=== PATIENT | male | born 1940 | race Caucasian/White ===

== ENCOUNTER 2017-01-27 15:51 | Emergency (ER) | payer MEDICARE, OTHER ==
--- NOTE | 2017-01-27 17:51 | ERPHSYRPT ---
- History of Present Illness Time Seen by Provider: 01/27/17 17:51 Source: patient Exam Limitations: no limitations Patient Subjective Stated Complaint: pt states he tripped over the trailer hitch. pt states he hit left forehead on concrete. pt states he has a laceration to forehead and takes xarelto for a-fib. Triage Nursing Assessment: pt pink, warm, dry. pupils perrl. 3cm laceration to left forehead noted. bleeding controlled. Physician History: The patient is a 76-year-old male who tripped over a trailer hitch, falling to the ground, and hitting his head on the concrete, causing a laceration to the left side of his scalp as well as an abrasion to the right side. There was no loss of consciousness. Occurred: just prior to arrival Reason for Fall: tripped, fell from standing pos Injuries/Pain Location: head Loss of Consciousness: no loss of consciousness Quality: aching Severity of Pain-Max: mild Severity of Pain-Current: mild Modifying Factors: Improves With: nothing Associated Symptoms (Fall): denies symptoms Allergies/Adverse Reactions: Sulfa (Sulfonamide Antibiotics) Allergy (Verified 01/27/17 16:15) Home Medications: Allopurinol 300 mg [Zyloprim 300 mg] 300 mg PO DAILY 05/06/15 [History] Aspirin 81 mg PO DAILY 05/06/15 [History] Atenolol 50 mg [Tenormin 50 mg] 50 mg PO DAILY 05/06/15 [History] Duloxetine HCl 30 mg [Cymbalta 30 MG Capsule] 30 mg PO DAILY 05/06/15 [ History] Furosemide 40 mg PO DAILY 05/06/15 [History] Gabapentin 300 mg PO DAILY 05/06/15 [History] Glimepiride 6 mg PO DAILY 05/06/15 [History] Multivitamins,Ther W-Minerals [Vitamin and Minerals] 1 tab PO DAILY 05/06/15 [ History] Pioglitazone HCl/Glimepiride [Duetact 30-2 mg Tablet] 30 mg PO DAILY 05/06/15 [ History] Rivaroxaban 10 mg Tablet [Xarelto 10 mg Tablet] 10 mg PO DAILY 05/06/15 [ History] Dronedarone Hydrochloride 400* [Multaq 400 MG] 400 mg PO DAILY 01/27/17 [ History] Hx Tetanus, Diphtheria Vaccination/Date Given: Yes (up to date) Hx Influenza Vaccination/Date Given: Yes Hx Pneumococcal Vaccination/Date Given: Yes Immunizations Up to Date: Yes - Review of Systems Constitutional: No Fever, No Chills Eyes: No Symptoms Ears, Nose, & Throat: No Symptoms Respiratory: No Cough, No Dyspnea Cardiac: No Chest Pain, No Edema, No Syncope Abdominal/Gastrointestinal: No Abdominal Pain, No Nausea, No Vomiting, No Diarrhea Genitourinary Symptoms: No Dysuria Musculoskeletal: Fall, Injury, No Back Pain, No Neck Pain Skin: Other (lac and abrasion), No Rash Neurological: No Dizziness, No Focal Weakness, No Sensory Changes Psychological: No Symptoms Endocrine: No Symptoms Hematologic/Lymphatic: No Symptoms Immunological/Allergic: No Symptoms All Other Systems: Reviewed and Negative - Past Medical History Pertinent Past Medical History: Yes Neurological History: Stroke Cardiac History: Arrhythmia, Hypertension Endocrine Medical History: Diabetes Type I Other Medical History: BACK SURGERY X 2 AND ROGER IN 2013, 2012 HIP STABILIZATION , CATARACT 2000 AND 2009, - Past Surgical History Past Surgical History: Yes Musculoskeletal: Joint Replacement, Other Other Surgical History: BACK SX - Social History Smoking Status: Former smoker Exposure to second hand smoke: No Drug Use: none Patient Lives Alone: No - Nursing Vital Signs Nursing Vital Signs: Initial Vital Signs Temperature 97.4 F Temperature Source Oral Pulse Rate 76 Respiratory Rate 18 Blood Pressure [] 142/76 Pain Intensity 0 - [place] Coma Score Best Eye Response ([place]): (4) open spontaneously Best Verbal Response ([place]): (5) oriented Best Motor Response (Giuliana): (6) obeys commands Giuliana Total: 15 - Physical Exam General Appearance: no apparent distress, alert Head Injury: lacerations (right parietal, abrasion to left forehead.), swelling , tenderness Eye Exam: PERRL/EOMI ENT Exam: airway nml Neck Exam: normal inspection, No tenderness Respiratory/Chest Exam: normal breath sounds, No chest tenderness, No respiratory distress Cardiovascular Exam: normal heart sounds, regular rate/rhythm Gastrointestinal Exam: soft, No tenderness, No distention, No guarding, No ecchymosis Rectal Exam: not done Back Exam: normal inspection, No vertebral tenderness Extremity Exam: normal inspection, normal range of motion, pelvis stable, No deformities Neurologic Exam: alert, oriented x 3, cooperative, sensation nml, No motor deficits Skin Exam: abrasion (right forehead), laceration (left scalp) SpO2 Interpretation: normal Oxygen Delivery: Room Air Procedures - Laceration/Wound Repair Left Parietal Wound Location: Left, head Wound's Depth, Shape: superficial, flap Wound Explored: clean Irrigated: Yes Hibiclens Prep: Yes Wound Repaired With: Dermabond Sterile Dressing Applied?: No Splint Applied?: No Sling Applied?: No - CT Exams Head CT Interpretation: Tele-radiologist Report, No Fracture, No/Intracranial Hemorrhag, Other (No acute per Dr Ryan.) Ordered Tests: Active Orders 24 hr Category Date Time Status Wound Care STAT Care 01/27/17 17:41 Active HEAD WITHOUT CONTRAST [CT] Stat Exams 01/27/17 17:23 Taken - Progress Progress: improved Counseled pt/family regarding: diagnosis, rad results - Departure Time of Disposition: 18:04 Departure Disposition: Home Clinical Impression: Scalp contusion, Scalp laceration Condition: Stable Critical Care Time: No Referrals: CONCEPCIÓN DELEON MD [Primary Care Provider] - Instructions: Care for a Laceration After Repair Additional Instructions: Tylenol as needed.
[2017-01-27 18:26] VITALS: BP 143/59; PULSE 78
--- NOTE | 2017-01-28 08:37 | XRAY ---
Indication: Head injury following fall. Multiple contiguous axial images obtained through the head without contrast. Comparison: None Age-appropriate global atrophy and minimal periventricular degenerative micro-ischemia. No acute intracranial hemorrhage, abnormal extra-axial fluid collection, or mass effect. Fourth ventricle is midline without hydrocephalus. Bony calvarium intact. Visualized paranasal sinuses and mastoid air cells are pneumatized and clear. Impression: Nonacute senile brain. CTDI 50.87
== END 2017-01-27 18:25 | disposition home or self-care (01) ==
LOC: ED 15:51
PROC: 0HQ0XZZ Repair Scalp Skin, External Approach (ICD-10-PCS; principal; 2017-01-27)
DX: S01.01XA Laceration without foreign body of scalp, initial encounter (principal); S00.03XA Contusion of scalp, initial encounter; W18.09XA Striking against other object with subsequent fall, initial encounter; Z79.01 Long term (current) use of anticoagulants; I10 Essential (primary) hypertension; E10.9 Type 1 diabetes mellitus without complications
CPT/HCPCS: 12002; 70450; 99284

== ENCOUNTER 2018-02-16 14:03 | Emergency (ER) | payer BLACK LUNG, MEDICARE, OTHER ==
[2018-02-16] MEDS ORDERED: Hydromorphone 1 mg/ml Ampule IV ONE (14:24)
[2018-02-16] MEDS ORDERED: DILAUDID 2 MG INJECTION ONE (14:29)
--- NOTE | 2018-02-16 14:30 | ERPHSYRPT ---
- History of Present Illness Time Seen by Provider: 02/16/18 14:17 Source: patient, family () Patient Subjective Stated Complaint: pt reports abd pain radiating to low back and groin beginning wednesday-states that he is currently taking iron infusions- reports last bm yesterday with no difficutly Triage Nursing Assessment: pt pale warm and [id number] soft and tender to palp-denies rebound tenderness Physician History: CC: right flank pain Hx: 77 y/o patient of Dr Deleon/Josué. He has right flank pain radiating around to right abd and right groin. He had prior pain like this from his back. No hx of kidney stones. No fever or chills. Some nausea this AM. No blood in urine. He has hospitalization for fluid overload and dehydration last month. He finished an iron infusion and came to ER. Timing/Duration: day(s) (3) Allergies/Adverse Reactions: Sulfa (Sulfonamide Antibiotics) Allergy (Verified 02/16/18 14:16) Home Medications: Allopurinol 300 mg [Zyloprim 300 mg] 300 mg PO DAILY 05/06/15 [History] Aspirin 81 mg PO DAILY 05/06/15 [History] Duloxetine HCl 30 mg [Cymbalta 30 MG Capsule] 30 mg PO DAILY 05/06/15 [ History] Gabapentin 300 mg PO DAILY 05/06/15 [History] Glimepiride 6 mg PO DAILY 05/06/15 [History] Multivitamin,Ther and Minerals [Vitamin and Minerals] 1 tab PO DAILY 05/06/15 [ History] Dronedarone Hydrochloride 400* [Multaq 400 MG] 200 mg PO DAILY 01/27/17 [ History] Apixaban [Eliquis 2.5 mg Tablet] 2.5 mg PO DAILY 02/10/18 [History] Ascorbic Acid [Vitamin C] 1,000 mg PO DAILY 02/10/18 [History] Benzonatate [Tessalon Perle] 100 mg PO DAILY PRN PRN 02/10/18 [History] Bumetanide 1 mg [Bumex 1 mg] 1 mg PO DAILY 02/10/18 [History] Ergocalciferol (Vitamin D2) [Vitamin D] 50,000 unit PO WEEKLY 02/10/18 [History] Gabapentin 600 mg PO HS 02/10/18 [History] Ipratropium/Albuterol Sulfate [Combivent Inhaler] 15 gm IH Q4HPRN PRN 02/10/18 [ History] Losartan Potassium 25 mg PO DAILY 02/10/18 [History] Montelukast Sodium 10 mg [Singulair 10 MG] 10 mg PO DAILY 02/10/18 [History] Pioglitazone 30 mg [Actos 30 MG] 30 mg PO DAILY 02/10/18 [History] Tamsulosin HCl 0.4 mg [Flomax 0.4 MG] 0.4 mg PO DAILY 02/10/18 [History] Atenolol 25 mg PO DAILY 02/16/18 [History] Patiromer Calcium Sorbitex [Veltassa] 8.4 gm PO WEEKLY 02/16/18 [History] Hx Tetanus, Diphtheria Vaccination/Date Given: Yes Hx Influenza Vaccination/Date Given: Yes Hx Pneumococcal Vaccination/Date Given: Yes Immunizations Up to Date: Yes - Review of Systems Constitutional: No Fever, No Chills Eyes: No Symptoms Ears, Nose, & Throat: No Symptoms Respiratory: No Cough, No Dyspnea Cardiac: No Chest Pain Abdominal/Gastrointestinal: Abdominal Pain, Nausea, No Vomiting, No Diarrhea Genitourinary Symptoms: Flank Pain (right), No Dysuria, No Hematuria Musculoskeletal: Back Pain Skin: No Rash Neurological: No Headache All Other Systems: Reviewed and Negative - Past Medical History Pertinent Past Medical History: Yes Neurological History: Stroke ENT History: Cataracts Cardiac History: Arrhythmia, Congestive Heart Failure, Hypertension Respiratory History: CHF, Pneumonia, Other Endocrine Medical History: Diabetes Type I Musculoskeletal History: Degenerative Disk Disease GI Medical History: No Pertinent History History: Renal Disease Psycho-Social History: No Pertinent History Male Reproductive Disorders: No Pertinent History Other Medical History: BACK SURGERY X , 2012 HIP STABILIZATION, CATARACT 2000 AND 2009,black lung,lt total hip replaced - Past Surgical History Past Surgical History: Yes Neuro Surgical History: No Pertinent History Cardiac: Cardiac Catheterization Respiratory: No Pertinent History Gastrointestinal: No Pertinent History Genitourinary: No Pertinent History Musculoskeletal: Joint Replacement, Orthopedic Surgery, Other Male Surgical History: No Pertinent History Other Surgical History: BACK, rt shoulder,rt foot great toe, - Social History Smoking Status: Former smoker Exposure to second hand smoke: No Drug Use: none Patient Lives Alone: No - Nursing Vital Signs Nursing Vital Signs: Initial Vital Signs Temperature 97.3 F 02/16/18 14:12 Pulse Rate 75 02/16/18 14:12 Respiratory Rate 18 02/16/18 14:12 Blood Pressure 119/66 02/16/18 14:12 O2 Sat by Pulse Oximetry 98 02/16/18 14:12 Pain Scale Pain Intensity 10 - Physical Exam General Appearance: alert, other (pleasant man on home oxygen) Eye Exam: PERRL/EOMI Ears, Nose, Throat Exam: moist mucous membranes Neck Exam: normal inspection, non-tender, supple Respiratory Exam: crackles/rales (scattered bases) Cardiovascular Exam: regular rate/rhythm Gastrointestinal/Abdomen Exam: soft, No tenderness, No distention, No mass, No guarding Male Genitalia Exam: normal genitalia, No testicular tenderness Back Exam: normal inspection, No CVA tenderness Extremity Exam: normal inspection, normal range of motion Neurologic Exam: alert, oriented x 3, cooperative, sensation nml, No motor deficits Skin Exam: warm, dry, No rash SpO2 Interpretation: normal SpO2: 98 Oxygen Delivery: Room Air - Course Nursing assessment & vital signs reviewed: Yes Ordered Tests: Active Orders 24 hr Category Date Time Status Clean Catch Urine Specimen STAT Care 02/16/18 14:24 Active IV Insertion STAT Care 02/16/18 14:24 Active ABDOMEN AND PELVIS W/0 CONTRAS [CT] Stat Exams 02/16/18 14:24 Completed CBC W DIFF Stat Lab 02/16/18 14:37 Completed CMP Stat Lab 02/16/18 14:37 Completed CULTURE,URINE Stat Lab 02/16/18 15:05 Received Manual Differential NC Stat Lab 02/16/18 14:37 Completed UA W/ MICROSCOPIC Stat Lab 02/16/18 15:05 Completed Medication Summary Discontinued Medications Generic Name Dose Route Start Last Admin Trade Name Freq PRN Reason Stop Dose Admin Hydromorphone HCl 0.5 mg 02/16/18 14:24 02/16/18 14:36 Hydromorphone 1 Mg/Ml Ampule IV 02/16/18 14:25 0.5 mg STAT ONE Administration Hydromorphone HCl Confirm 02/16/18 14:29 Dilaudid 2 Mg Injection Administered 02/16/18 14:30 Dose 2 mg .ROUTE .STK-MED ONE Lab/Rad Data: Laboratory Result Diagrams 02/16/18 14:37 02/16/18 14:37 Laboratory Results 02/16/18 02/16/18 02/16/18 Range/Units 15:05 14:37 14:37 WBC 4.1 (4.0-10.5) K/mm3 RBC 2.46 L (4.1-5.6) M/mm3 Hgb 8.0 L (12.5-18.0) gm/dl Hct 26.3 L (42-50) % MCV 106.9 H (78-100) fl MCH 32.5 H (26-32) pg MCHC 30.4 L (32-36) g/dl RDW 17.8 H (11.5-14.0) % Plt Count 95 L (150-450) K/mm3 MPV 9.5 (6-9.5) fl Absolute Granulocytes 2.52 (1.4-6.9) Segmented Neutrophils 70 H (36.-66.) % Lymphocytes (Manual) 22 L (24-44) % Monocytes (Manual) 8 (0.0-12.0) % Differential Comment ABNORMAL Platelet Estimate DECREASED (NORMAL) Polychromasia 1+ Anisocytosis 1+ Macrocytosis 1+ Sodium 137 (137-145) mmol/L Potassium 4.8 (3.5-5.1) mmol/L Chloride 97 L (98-107) mmol/L Carbon Dioxide 34 H (22-30) mmol/L Anion Gap 10.1 (5-15) MEQ/L BUN 34 H (9-20) mg/dL Creatinine 2.46 H (0.66-1.25) mg/dL Estimated GFR 27.3 ML/MIN Glucose 195 H (74-106) mg/dL Calcium 8.3 L (8.4-10.2) mg/dL Total Bilirubin 0.40 (0.2-1.3) mg/dL AST 21 (17-59) U/L ALT 16 (0-50) U/L Alkaline Phosphatase 112 (38-126) U/L Serum Total Protein 6.0 L (6.3-8.2) g/dL Albumin 3.0 L (3.5-5.0) g/dL Ur Collection Type VOID Urine Color YELLOW (YELLOW) Urine Appearance CLEAR (CLEAR) Urine pH 5.0 (5-6) Ur Specific [place] 1.015 (1.005-1.025) Urine Protein TRACE (Negative) Urine Ketones NEGATIVE (NEGATIVE) Urine Blood 5-10 (0-5) Ki/ul Urine Nitrite NEGATIVE (NEGATIVE) Urine Bilirubin NEGATIVE (NEGATIVE) Urine Urobilinogen NORMAL (0-1) mg/dL Ur Leukocyte Esterase NEGATIVE (NEGATIVE) Urine Microscopic RBC 0-2 (0-2) /HPF Ur Epithelial Cells FEW (FEW) /HPF Urine Bacteria RARE (NEGATIVE) /HPF Hyaline Casts 5-10 (0-2) /LPF Urine Culture Reflexed YES (NO) Urine Glucose NEGATIVE (NEGATIVE) mg/dL Specimen Received 02/16/18 1505 - Progress Progress Note: 02/16/18 15:55 CT abd/pelvis: 1. Again negative renal calculus or evidence for obstructive uropathy. New bilateral renal atrophy. 2. Mild fecal stasis without obstruction. 3. New large bibasilar effusions/atelectasis without cardiomegaly. 4. Stable small fatty umbilical hernia. 02/16/18 17:34 Pt feels better and wants to go home. Has norco at home for pain. Called Dr Moses and reviewed lab and CT. Will follow up as OP. Counseled pt/family regarding: lab results, diagnosis, need for follow-up, rad results - Departure Time of Disposition: 17:35 Departure Disposition: Home Clinical Impression: Right flank pain, Chronic anemia, Pleural effusion Chronic kidney disease Qualifiers: Chronic kidney disease stage: stage 4 (severe) Qualified Code(s): N18.4 - Chronic kidney disease, stage 4 (severe) Condition: Fair Critical Care Time: No Referrals: CONCEPCIÓN DELEON MD [Primary Care Provider] - Instructions: Flank Pain (DC) Additional Instructions: No driving today and stay with family. Use your norco sparingly as already directed for pain. Call Dr Deleon for follow up. Return for problems or concerns.
[2018-02-16 15:04] LABS: Granulocyte Absolute (ANC) 2.52 (1.4-6.9); Hematocrit 26.3 % (42-50); Mean Cell Volume 106.9 fl (78-100); Mean Corpuscular Hemoglobin 32.5 pg (26-32); Mean Corpuscular Hgb Concent. 30.4 g/dl (32-36); Mean Platelet Volume 9.5 fl (6-9.5); Platelet Count 95 K/mm3 (150-450); Red Blood Count 2.46 M/mm3 (4.1-5.6); Red Cell Distribution Width 17.8 % (11.5-14.0); White Blood Count 4.1 K/mm3 (4.0-10.5)
[2018-02-16 15:11] LABS: ANION GAP 10.1 MEQ/L (5-15); BILIRUBIN,TOTAL 0.4 mg/dL (0.2-1.3); Calcium 8.3 mg/dL (8.4-10.2); Creatinine 1 2.46 mg/dL (0.66-1.25); Potassium 4.8 mmol/L (3.5-5.1)
--- NOTE | 2018-02-16 15:16 | XRAY ---
Indication: Right flank pain. Multiple contiguous axial images obtained through the abdomen and pelvis without contrast using renal stone protocol. Comparison: August 30, 2007. Lung bases demonstrate new large bibasilar effusions with compressive atelectasis, left greater than right. Heart is not enlarged. Again no renal calculus or evidence for obstructive uropathy in either system. Both kidneys are now atrophic. Urinary bladder is decompressed. Noncontrasted stomach and bowel loops appear nonobstructed. There is now mild diffuse scattered colonic fecal debris. Normal appendix. Again mild fatty-replaced pancreas. Remaining liver, gallbladder, pancreas, spleen, adrenal glands, kidneys, ureters, and bladder appear unremarkable for noncontrast exam. Moderate aortoiliac calcifications without AAA. Osseous structures demonstrates progressive worsening advanced multilevel degenerative spondylosis. Interval multilevel posterior lumbar fusion surgery and left hip arthroplasty. Stable small fatty umbilical hernia. Impression: 1. Again negative renal calculus or evidence for obstructive uropathy. New bilateral renal atrophy. 2. Mild fecal stasis without obstruction. 3. New large bibasilar effusions/atelectasis without cardiomegaly. 4. Stable small fatty umbilical hernia. CT DI 23.68
[2018-02-16 16:16] LABS: Appearance CLEAR (CLEAR); Bilirubin NEGATIVE (NEGATIVE); Glucose NEGATIVE (NEGATIVE); Ketones NEGATIVE (NEGATIVE); Leukocyte Esterase NEGATIVE (NEGATIVE); Nitrite NEGATIVE (NEGATIVE); Protein,Urine Dip TRACE (Negative); Specific Gravity 1.015 (1.005-1.025); Urobilinogen NORMAL mg/dL (0-1)
[2018-02-16 16:17] LABS: Bacteria RARE /HPF (NEGATIVE); Epithelial Cells FEW /HPF (FEW)
[2018-02-16 17:15] LABS: Lymphocytes 22 % (24-44); Neutrophils 70 % (36.-66.); Total Cells Counted 100
[2018-02-16 17:16] LABS: ANISOCYTOSIS 1+; Macrocytosis 1+; Monocyte 8 % (0.0-12.0); Platelet Estimate DECREASED (NORMAL); Polychromasia 1+
[2018-02-16 17:59] VITALS: BP 114/61; PULSE 75; O2SAT 97
== END 2018-02-16 17:58 | disposition home or self-care (01) ==
LOC: ED 14:03
DX: N18.4 Chronic kidney disease, stage 4 (severe) (principal); D64.9 Anemia, unspecified; J90 Pleural effusion, not elsewhere classified; R11.0 Nausea; Z79.899 Other long term (current) drug therapy; Z79.01 Long term (current) use of anticoagulants
CPT/HCPCS: 36415; 74176; 80053; 81000; 85025; 87086; 96374; 99283; 99284; J1170

== ENCOUNTER 2018-02-17 10:48 | Inpatient (IN) | payer BLACK LUNG, MEDICARE, OTHER ==
[2018-02-17] MEDS ORDERED: PROVENTIL 2.5 MG/3 ML NEB IH ONE (10:52)
--- NOTE | 2018-02-17 10:58 | ERPHSYRPT ---
- History of Present Illness Time Seen by Provider: 02/17/18 10:51 Source: patient, EMS Patient Subjective Stated Complaint: pt reports falling durng the night-was tx in ed yesterday for weakness-was told to follow up [facility] pcp but could not be seen until 1400 this afternoon-denies changes in sob or pain Triage Nursing Assessment: pt pale warm and [id number] to answer to questions appropriately-resp nonlabored Physician History: CC: general weakness Hx: 77 y/o patient of Dr aP. He was here yesterday with right flank pain. CT negative. He has chronic kidney disease, anemia getting iron infusions, and heart failure with pleural effusions. He went home. States he fell last night and bumped his head. He is anticoagulated. This AM was standing to urinate and fell backwards and landed in his shower chair without apparent injury. Called for appt this afternoon but felt weak so came to ER. No fever or chills. No V/D. Normal urination. He wears chronic home oxygen. Severity: moderate Allergies/Adverse Reactions: Sulfa (Sulfonamide Antibiotics) Allergy (Verified 02/16/18 14:16) Home Medications: Allopurinol 300 mg [Zyloprim 300 mg] 300 mg PO DAILY 05/06/15 [History] Aspirin 81 mg PO DAILY 05/06/15 [History] Duloxetine HCl 30 mg [Cymbalta 30 MG Capsule] 30 mg PO DAILY 05/06/15 [ History] Gabapentin 300 mg PO DAILY 05/06/15 [History] Glimepiride 6 mg PO DAILY 05/06/15 [History] Multivitamin,Ther and Minerals [Vitamin and Minerals] 1 tab PO DAILY 05/06/15 [ History] Dronedarone Hydrochloride 400* [Multaq 400 MG] 200 mg PO DAILY 01/27/17 [ History] Apixaban [Eliquis 2.5 mg Tablet] 2.5 mg PO DAILY 02/10/18 [History] Ascorbic Acid [Vitamin C] 1,000 mg PO DAILY 02/10/18 [History] Benzonatate [Tessalon Perle] 100 mg PO DAILY PRN PRN 02/10/18 [History] Bumetanide 1 mg [Bumex 1 mg] 1 mg PO DAILY 02/10/18 [History] Ergocalciferol (Vitamin D2) [Vitamin D] 50,000 unit PO WEEKLY 02/10/18 [History] Gabapentin 600 mg PO HS 02/10/18 [History] Ipratropium/Albuterol Sulfate [Combivent Inhaler] 15 gm IH Q4HPRN PRN 02/10/18 [ History] Losartan Potassium 25 mg PO DAILY 02/10/18 [History] Montelukast Sodium 10 mg [Singulair 10 MG] 10 mg PO DAILY 02/10/18 [History] Pioglitazone 30 mg [Actos 30 MG] 30 mg PO DAILY 02/10/18 [History] Tamsulosin HCl 0.4 mg [Flomax 0.4 MG] 0.4 mg PO DAILY 02/10/18 [History] Atenolol 25 mg PO DAILY 02/16/18 [History] Patiromer Calcium Sorbitex [Veltassa] 8.4 gm PO WEEKLY 02/16/18 [History] Hx Tetanus, Diphtheria Vaccination/Date Given: Yes Hx Influenza Vaccination/Date Given: Yes Hx Pneumococcal Vaccination/Date Given: Yes Immunizations Up to Date: Yes - Review of Systems Constitutional: Fatigue, Malaise, Weakness, No Fever, No Chills Eyes: No Symptoms Ears, Nose, & Throat: No Symptoms Respiratory: Dyspnea, No Cough Cardiac: No Chest Pain, No Syncope Abdominal/Gastrointestinal: No Abdominal Pain, No Nausea, No Vomiting, No Diarrhea Genitourinary Symptoms: No Dysuria Musculoskeletal: Back Pain (right flank), No Neck Pain Skin: No Rash Neurological: No Focal Weakness, No Headache All Other Systems: Reviewed and Negative - Past Medical History Pertinent Past Medical History: Yes Neurological History: Stroke ENT History: Cataracts Cardiac History: Arrhythmia, Congestive Heart Failure, Hypertension Respiratory History: CHF, Pneumonia, Other Endocrine Medical History: Diabetes Type I Musculoskeletal History: Degenerative Disk Disease GI Medical History: No Pertinent History History: Renal Disease Psycho-Social History: No Pertinent History Male Reproductive Disorders: No Pertinent History Other Medical History: BACK SURGERY X 2012 HIP STABILIZATION, CATARACT 2000 AND 2009,black lung,lt total hip replaced - Past Surgical History Past Surgical History: Yes Neuro Surgical History: No Pertinent History Cardiac: Cardiac Catheterization Respiratory: No Pertinent History Gastrointestinal: No Pertinent History Genitourinary: No Pertinent History Musculoskeletal: Joint Replacement, Orthopedic Surgery, Other Male Surgical History: No Pertinent History Other Surgical History: BACK, rt shoulder,rt foot great toe, - Social History Smoking Status: Former smoker Exposure to second hand smoke: No Drug Use: none Patient Lives Alone: No - Nursing Vital Signs Nursing Vital Signs: Initial Vital Signs Pulse Rate 101 H 02/17/18 11:04 Respiratory Rate 20 02/17/18 11:04 Blood Pressure 120/76 02/17/18 11:04 O2 Sat by Pulse Oximetry 96 02/17/18 11:04 - Physical Exam General Appearance: alert, obese Eye Exam: PERRL/EOMI Ears, Nose, Throat Exam: normal ENT inspection, moist mucous membranes Neck Exam: normal inspection, non-tender, supple, No midline tenderness Respiratory Exam: crackles/rales (basilar l>r) Cardiovascular Exam: regular rate/rhythm Gastrointestinal/Abdomen Exam: soft, No tenderness, No distention Male Genitalia Exam: normal genitalia Back Exam: normal inspection, No vertebral tenderness, No point tenderness Extremity Exam: pedal edema Neurologic Exam: alert, oriented x 3, cooperative, parent aide II-XII nml as tested, sensation nml, No motor deficits Skin Exam: warm, dry, ecchymosis (scattered), No rash SpO2 Interpretation: normal SpO2: 96 Oxygen Delivery: Nasal Cannula - Course Nursing assessment & vital signs reviewed: Yes EKG Interpreted by Me: RATE (89), A-fib, NORMAL AXIS, NORMAL INTERVALS (QTc 424) , NORMAL QRS, NORMAL ST-T Ordered Tests: Active Orders 24 hr Category Date Time Status Automat Car Attendant STAT Care 02/17/18 10:53 Active Clean Catch Urine Specimen STAT Care 02/17/18 10:52 Active EKG-ER Only STAT Care 02/17/18 10:52 Active IV Insertion STAT Care 02/17/18 10:52 Active Oxygen-ED Only NASAL CANNULA 4 lpm Care 02/17/18 10:52 Active Pulse Oximetry (ED) STAT Care 02/17/18 10:52 Active Rectal Temperature STAT Care 02/17/18 10:52 Active CHEST 1 VIEW (PORTABLE) Stat Exams 02/17/18 10:52 Completed HEAD WITHOUT CONTRAST [CT] Stat Exams 04/05/18 10:53 Completed CBC W DIFF Stat Lab 02/17/18 11:35 Completed CMP Stat Lab 02/17/18 11:35 Completed Lactic Acid Stat Lab 02/17/18 11:45 Completed Manual Differential NC Stat Lab 02/17/18 11:35 Completed NT PRO BNP Stat Lab 02/17/18 11:35 Completed PROTIME WITH INR Stat Lab 02/17/18 11:35 Completed PTT Stat Lab 02/17/18 11:35 Completed TROPONIN Q3H Lab 02/17/18 11:35 Completed TROPONIN Q3H Lab 02/17/18 14:00 Ordered TROPONIN Q3H Lab 02/17/18 17:00 Ordered TROPONIN Q3H Lab 02/17/18 20:00 Ordered TROPONIN Q3H Lab 02/17/18 23:00 Ordered UA W/RFX UR CULTURE Stat Lab 02/17/18 12:00 Completed VENOUS BLOOD GAS Stat Lab 02/17/18 11:45 Completed Respiratory Nebulizer STAT RT 02/17/18 10:53 Active Medication Summary Discontinued Medications Generic Name Dose Route Start Last Admin Trade Name Freq PRN Reason Stop Dose Admin Albuterol Sulfate 2.5 mg 02/17/18 10:52 Proventil 2.5 Mg/3 Ml Neb IH 02/17/18 10:53 STAT ONE Lab/Rad Data: Laboratory Result Diagrams 02/17/18 11:35 02/17/18 11:35 Laboratory Results 02/17/18 02/17/18 02/17/18 Range/Units 12:00 11:45 11:35 WBC (4.0-10.5) K/mm3 RBC (4.1-5.6) M/mm3 Hgb (12.5-18.0) gm/dl Hct (42-50) % MCV (78-100) fl MCH (26-32) pg MCHC (32-36) g/dl RDW (11.5-14.0) % Plt Count (150-450) K/mm3 MPV (6-9.5) fl Absolute Granulocytes (1.4-6.9) Segmented Neutrophils (36.-66.) % Lymphocytes (Manual) (24-44) % Monocytes (Manual) (0.0-12.0) % Differential Comment Platelet Estimate (NORMAL) Polychromasia Poikilocytosis Anisocytosis PT (8.83-12.87) SECONDS INR (0.8-3.0) APTT (24.1-36.1) SECONDS pO2/FiO2 Ratio 21.0 % VBG pH 7.38 (7.32-7.42) VBG pCO2 at Pat Temp 63 H* (42-55) mm/Hg VBG pO2 at Pat Temp 28 (25-40) mm/Hg VBG HCO3 37.3 H* (22-28) meq/L VBG O2 Sat (Sammie) 59.9 L (95-100) VBG Base Excess 10.6 H (-2.0-2.0) VBG Hemoglobin 8.9 VBG Carboxyhemoglobin 2.6 (0.0-6.9) % T HGB POC Potassium 4.0 (3.5-5.1) Sodium (137-145) mmol/L Potassium (3.5-5.1) mmol/L Chloride (98-107) mmol/L Carbon Dioxide (22-30) mmol/L Anion Gap (5-15) MEQ/L BUN (9-20) mg/dL Creatinine (0.66-1.25) mg/dL Estimated GFR ML/MIN Glucose (74-106) mg/dL Lactic Acid 1.1 (0.4-2.0) Calcium (8.4-10.2) mg/dL Total Bilirubin (0.2-1.3) mg/dL AST (17-59) U/L ALT (0-50) U/L Alkaline Phosphatase (38-126) U/L Troponin I < 0.012 (0.000-0.034) ng/mL NT-Pro-B Natriuret Pep (0-1800) pg/mL Serum Total Protein (6.3-8.2) g/dL Albumin (3.5-5.0) g/dL Ur Collection Type CLEAN CATCH Urine Color YELLOW (YELLOW) Urine Appearance CLEAR (CLEAR) Urine pH 5.0 (5-6) Ur Specific [place] 1.015 (1.005-1.025) Urine Protein NEGATIVE (Negative) Urine Ketones NEGATIVE (NEGATIVE) Urine Blood NEGATIVE (0-5) Ki/ul Urine Nitrite NEGATIVE (NEGATIVE) Urine Bilirubin NEGATIVE (NEGATIVE) Urine Urobilinogen NORMAL (0-1) mg/dL Ur Leukocyte Esterase NEGATIVE (NEGATIVE) Urine Culture Reflexed NO (NO) Urine Glucose NEGATIVE (NEGATIVE) mg/dL Specimen Received 02-17-18 1200 02/17/18 02/17/18 02/17/18 Range/Units 11:35 11:35 11:35 WBC 4.6 (4.0-10.5) K/mm3 RBC 2.61 L (4.1-5.6) M/mm3 Hgb 8.2 L (12.5-18.0) gm/dl Hct 27.8 L (42-50) % MCV 106.5 H (78-100) fl MCH 31.4 (26-32) pg MCHC 29.5 L (32-36) g/dl RDW 18.2 H (11.5-14.0) % Plt Count 99 L (150-450) K/mm3 MPV 9.6 H (6-9.5) fl Absolute Granulocytes 2.95 (1.4-6.9) Segmented Neutrophils 67 H (36.-66.) % Lymphocytes (Manual) 20 L (24-44) % Monocytes (Manual) 13 H (0.0-12.0) % Differential Comment ABNORMAL Platelet Estimate NORMAL (NORMAL) Polychromasia 1+ Poikilocytosis 1+ Anisocytosis 1+ PT 13.4 H (8.83-12.87) SECONDS INR 1.20 (0.8-3.0) APTT 33.5 (24.1-36.1) SECONDS pO2/FiO2 Ratio % VBG pH (7.32-7.42) VBG pCO2 at Pat Temp (42-55) mm/Hg VBG pO2 at Pat Temp (25-40) mm/Hg VBG HCO3 (22-28) meq/L VBG O2 Sat (Sammie) (95-100) VBG Base Excess (-2.0-2.0) VBG Hemoglobin VBG Carboxyhemoglobin (0.0-6.9) % T HGB POC Potassium (3.5-5.1) Sodium 140 (137-145) mmol/L Potassium 4.2 (3.5-5.1) mmol/L Chloride 98 (98-107) mmol/L Carbon Dioxide 34 H (22-30) mmol/L Anion Gap 12.3 (5-15) MEQ/L BUN 34 H (9-20) mg/dL Creatinine 2.44 H (0.66-1.25) mg/dL Estimated GFR 27.6 ML/MIN Glucose 127 H (74-106) mg/dL Lactic Acid (0.4-2.0) Calcium 8.4 (8.4-10.2) mg/dL Total Bilirubin 0.50 (0.2-1.3) mg/dL AST 22 (17-59) U/L ALT 15 (0-50) U/L Alkaline Phosphatase 133 H (38-126) U/L Troponin I (0.000-0.034) ng/mL NT-Pro-B Natriuret Pep 3900 H (0-1800) pg/mL Serum Total Protein 6.3 (6.3-8.2) g/dL Albumin 3.1 L (3.5-5.0) g/dL Ur Collection Type Urine Color (YELLOW) Urine Appearance (CLEAR) Urine pH (5-6) Ur Specific [place] (1.005-1.025) Urine Protein (Negative) Urine Ketones (NEGATIVE) Urine Blood (0-5) Ki/ul Urine Nitrite (NEGATIVE) Urine Bilirubin (NEGATIVE) Urine Urobilinogen (0-1) mg/dL Ur Leukocyte Esterase (NEGATIVE) Urine Culture Reflexed (NO) Urine Glucose (NEGATIVE) mg/dL Specimen Received - Progress Progress Note: 02/17/18 11:55 CXR: Portable chest demonstrates borderline cardiomegaly with new mild central vascular prominence, small bibasilar effusions, and left base infiltrate/atelectasis. Stable osteopenia and degenerative changes. Head: Stable nonacute senile brain. 02/17/18 13:18 Pt stable. Some failure on cxr. He fell twice. Called Dr Mustafa who will place in tele obs. Daughter here. He advised lasix 20 IV now. Discussed with : Margarita Will see patient in: hospital (observation) Counseled pt/family regarding: lab results, diagnosis, need for follow-up, rad results - Departure Time of Disposition: 13:18 Departure Disposition: Observation Clinical Impression: Fall, CHF (congestive heart failure), Chronic anemia Condition: Stable Critical Care Time: No Referrals: CONCEPCIÓN DELEON MD [Primary Care Provider] -
--- NOTE | 2018-02-17 11:35 | XRAY ---
Indication: Pleural effusion. Comparison: May 06, 2015. Portable chest demonstrates borderline cardiomegaly with new mild central vascular prominence, small bibasilar effusions, and left base infiltrate/atelectasis. Stable osteopenia and degenerative changes.
--- NOTE | 2018-02-17 11:37 | XRAY ---
Indication: Posterior head injury following fall. Multiple contiguous axial images obtained through the head without contrast. Comparison: January 27, 2017. Stable age-appropriate global atrophy and minimal periventricular degenerative micro-ischemia bilaterally. No acute intracranial hemorrhage, abnormal extra-axial fluid collection, or mass effect. Fourth ventricle is midline without hydrocephalus. Bony calvarium intact. Visualized paranasal sinuses and mastoid air cells are clear. Impression: Stable nonacute senile brain. CT DI 51.70
[2018-02-17 11:47] LABS: Lactic Acid 1.1 (0.4-2.0); VBG BASE EXCESS 10.6 (-2.0-2.0); VBG CARBOXYHEMOGLOBIN 2.6 % T HGB (0.0-6.9); VBG HCO3- 37.3 meq/L (22-28); VBG HEMOGLOBIN 8.9; VBG O2 SATURATION 59.9 (95-100); VBG pH 7.38 (7.32-7.42)
[2018-02-17 11:53] LABS: Granulocyte Absolute (ANC) 2.95 (1.4-6.9); Hematocrit 27.8 % (42-50); Hemoglobin 8.2 gm/dl (12.5-18.0); Mean Cell Volume 106.5 fl (78-100); Mean Corpuscular Hemoglobin 31.4 pg (26-32); Mean Corpuscular Hgb Concent. 29.5 g/dl (32-36); Mean Platelet Volume 9.6 fl (6-9.5); Platelet Count 99 K/mm3 (150-450); Red Blood Count 2.61 M/mm3 (4.1-5.6); Red Cell Distribution Width 18.2 % (11.5-14.0); White Blood Count 4.6 K/mm3 (4.0-10.5)
[2018-02-17] MEDS: DUONEB 0.5-3 MG/3 ml Neb IH SCH ×3 (12:00→23:59)
[2018-02-17 12:08] LABS: INR 1.2 (0.8-3.0)
[2018-02-17 12:09] LABS: PTT 33.5 SECONDS (24.1-36.1)
[2018-02-17 12:09] LABS: Appearance CLEAR (CLEAR); Bilirubin NEGATIVE (NEGATIVE); Blood NEGATIVE Ery/ul (0-5); Glucose NEGATIVE (NEGATIVE); Ketones NEGATIVE (NEGATIVE); Leukocyte Esterase NEGATIVE (NEGATIVE); Nitrite NEGATIVE (NEGATIVE); Protein,Urine Dip NEGATIVE (Negative); Specific Gravity 1.015 (1.005-1.025); Urobilinogen NORMAL mg/dL (0-1)
[2018-02-17 12:11] LABS: ALBUMIN 3.1 g/dL (3.5-5.0); ANION GAP 12.3 MEQ/L (5-15); BILIRUBIN,TOTAL 0.5 mg/dL (0.2-1.3); Calcium 8.4 mg/dL (8.4-10.2); Creatinine 1 2.44 mg/dL (0.66-1.25); Potassium 4.2 mmol/L (3.5-5.1); Total Protein 6.3 g/dL (6.3-8.2)
[2018-02-17 13:03] LABS: Lymphocytes 20 % (24-44); Monocyte 13 % (0.0-12.0); Neutrophils 67 % (36.-66.); Total Cells Counted 100
[2018-02-17 13:04] LABS: ANISOCYTOSIS 1+; Platelet Estimate NORMAL (NORMAL); Poikilocytosis 1+; Polychromasia 1+
[2018-02-17] MEDS ORDERED: Lasix 40 MG/4 ML IV ONE (13:17)
[2018-02-17] MEDS ORDERED: Lasix 40 MG/4 ML ONE (14:00)
[2018-02-17] MEDS ORDERED: Tessalon Perles 100 MG PO PRN (16:49)
[2018-02-17] MEDS ORDERED: PATIROMER CALCIUM SORBITEX 8.4 GM PO SCH (17:00)
[2018-02-17] MEDS ORDERED: MEDICATION INTERVENTION MC SCH (17:30)
[2018-02-17] MEDS: Lopressor 25MG Tab PO SCH (21:54)
[2018-02-17] MEDS: Neurontin 400 MG PO SCH (21:54)
[2018-02-17] MEDS: Multaq 400 MG PO SCH (21:55)
[2018-02-17] MEDS: Vitamin C 500 MG PO SCH (21:55)
[2018-02-17] MEDS: ECOTRIN 81 MG PO SCH (21:56)
[2018-02-17] MEDS: BUMEX 1 MG PO SCH (21:56)
[2018-02-17] MEDS: Cymbalta 30 MG Capsule PO SCH (21:56)
[2018-02-17] MEDS: ELIQUIS 2.5 MG TABLET PO SCH (21:56)
[2018-02-17] MEDS: Singulair 10 MG PO SCH (21:56)
[2018-02-17] MEDS ORDERED: BABY ASPIRIN 81 MG CHEW PO SCH (22:00)
[2018-02-17] MEDS ORDERED: NON-FORMULARY ITEM (Ascorbic Acid [Vitamin C] 1,000 MG) PO SCH (22:00)
[2018-02-17] MEDS ORDERED: GABAPENTIN 1200 MG PO SCH (22:00)
[2018-02-18] MEDS: DUONEB 0.5-3 MG/3 ml Neb IH SCH ×6 (03:51→23:39)
[2018-02-18 05:51] LABS: Granulocyte Absolute (ANC) 2.43 (1.4-6.9); Hemoglobin 7.4 gm/dl (12.5-18.0); Mean Cell Volume 106.8 fl (78-100); Mean Corpuscular Hemoglobin 31.6 pg (26-32); Mean Corpuscular Hgb Concent. 29.6 g/dl (32-36); Mean Platelet Volume 9.8 fl (6-9.5); Platelet Count 91 K/mm3 (150-450); Red Blood Count 2.34 M/mm3 (4.1-5.6); Red Cell Distribution Width 18.6 % (11.5-14.0); White Blood Count 4.6 K/mm3 (4.0-10.5)
[2018-02-18 06:09] LABS: ANION GAP 8.3 MEQ/L (5-15); Calcium 8.2 mg/dL (8.4-10.2); Creatinine 1 2.38 mg/dL (0.66-1.25); Potassium 3.7 mmol/L (3.5-5.1)
[2018-02-18 07:21] LABS: ATYPICAL LYMPHS 1 %; BAND 3 % (0.0-2.0); Basophil 1 % (0.0-1.0); Lymphocytes 30 % (24-44); Metamyelocyte 1 %; Monocyte 7 % (0.0-12.0); Neutrophils 57 % (36.-66.); Total Cells Counted 100
[2018-02-18 07:23] LABS: Platelet Estimate DECREASED (NORMAL)
[2018-02-18 07:24] LABS: ANISOCYTOSIS 3+; Poikilocytosis 1+; Polychromasia 1+
[2018-02-18] MEDS: THERAGRAN MULTIVITAMIN PO SCH (09:40)
[2018-02-18] MEDS: Vitamin C 500 MG PO SCH ×2 (09:40→22:07)
[2018-02-18] MEDS: BUMEX 1 MG PO SCH ×2 (09:40→22:08)
[2018-02-18] MEDS: Lopressor 25MG Tab PO SCH ×2 (09:41→22:11)
[2018-02-18] MEDS: Flomax 0.4 MG PO SCH (09:41)
[2018-02-18] MEDS: NEURONTIN 300 MG PO SCH (09:41)
[2018-02-18] MEDS: ZYLOPRIM 300 MG PO SCH (09:41)
[2018-02-18] MEDS: ELIQUIS 2.5 MG TABLET PO SCH ×2 (09:41→22:07)
[2018-02-18] MEDS: Multaq 400 MG PO SCH ×2 (09:53→22:06)
[2018-02-18] MEDS ORDERED: AMARYL 4 MG PO SCH ×2 (10:00)
[2018-02-18] MEDS ORDERED: MULTIVITAMIN THER AND MINERALS PO SCH (10:00)
[2018-02-18] MEDS: Actos 30 MG PO SCH (11:52)
[2018-02-18] MEDS: Protonix 40MG Tablet PO SCH (11:52)
[2018-02-18] MEDS: NORCO 5/325 MG PO PRN (11:55)
--- NOTE | 2018-02-18 12:02 | PCM.HP ---
History of Present Illness - Chief Complaint Chief Complaint: SHORTNESS OF BREATH, for 3 days History of Present Illness: is a 77 year old male.was here yesterday with right flank pain. CT negative. He has chronic kidney disease, anemia getting iron infusions, and heart failure with pleural effusions. He went home. States he fell last night and bumped his head. He is anticoagulated. This AM was standing to urinate and fell backwards and landed in his shower chair without apparent injury. Called for appt this afternoon but felt weak so came to ER. No fever or chills. No V/ D. Normal urination. He wears chronic home oxygen. - Review of Systems Constitutional: No Fever, No Chills Eyes: No Symptoms Ears, Nose, & Throat: No Symptoms Respiratory: Cough, Orthopnea, Short Of Breath, Wheezing Cardiac: No Chest Pain, No Edema, No Syncope Abdominal/Gastrointestinal: No Abdominal Pain, No Nausea, No Vomiting, No Diarrhea Genitourinary Symptoms: No Dysuria Musculoskeletal: No Back Pain, No Neck Pain Skin: No Rash Neurological: No Dizziness, No Focal Weakness, No Sensory Changes Psychological: No Symptoms Endocrine: No Symptoms Hematologic/Lymphatic: No Symptoms Immunological/Allergic: No Symptoms Medications & Allergies Home Medications: Home Medication List Allopurinol 300 mg [Zyloprim 300 mg] 300 mg PO DAILY 05/06/15 [History Confirmed 02/17/18] Aspirin 81 mg PO HS 05/06/15 [History Confirmed 02/17/18] Duloxetine HCl 30 mg [Cymbalta 30 MG Capsule] 30 mg PO HS 05/06/15 [ History Confirmed 02/17/18] Gabapentin 300 mg PO DAILY 05/06/15 [History Confirmed 02/17/18] Glimepiride 9 mg PO DAILY 05/06/15 [History Confirmed 02/17/18] Multivitamin,Ther and Minerals [Vitamin and Minerals] 1 tab PO DAILY 05/06/15 [ History Confirmed 02/17/18] Hydrocodone Bit/Acetaminophen [[place] 5-325 Tablet] 1 each PO Q8H PRN PRN #14 tablet 05/07/15 [Rx Confirmed 02/17/18] Dronedarone Hydrochloride 400* [Multaq 400 MG] 200 mg PO BID 01/27/17 [ History Confirmed 02/17/18] Apixaban [Eliquis 2.5 mg Tablet] 2.5 mg PO BID 02/10/18 [History Confirmed ] Ascorbic Acid [Vitamin C] 1,000 mg PO BID 02/10/18 [History Confirmed 02/17/18] Benzonatate [Tessalon Perle] 100 mg PO DAILY PRN PRN 02/10/18 [History Confirmed 02/17/18] Bumetanide 1 mg [Bumex 1 mg] 1 mg PO BID 02/10/18 [History Confirmed 02/17] Ergocalciferol (Vitamin D2) [Vitamin D] 50,000 unit PO WEEKLY 02/10/18 [History Confirmed 02/17/18] Gabapentin 1,200 mg PO HS 02/10/18 [History Confirmed 02/17/18] Ipratropium/Albuterol Sulfate [Combivent Inhaler] 15 gm IH Q4HPRN PRN 02/10/18 [ History Confirmed 02/17/18] Montelukast Sodium 10 mg [Singulair 10 MG] 10 mg PO HS 02/10/18 [History Confirmed 02/17/18] Pioglitazone 30 mg [Actos 30 MG] 30 mg PO LUNCH 02/10/18 [History Confirmed 02/17/18] Tamsulosin HCl 0.4 mg [Flomax 0.4 MG] 0.4 mg PO DAILY 02/10/18 [History Confirmed 02/17/18] Patiromer Calcium Sorbitex [Veltassa] 8.4 gm PO WEEKLY 02/16/18 [History Confirmed 02/17/18] Folic Acid 800 mg PO DAILY 02/17/18 [History Confirmed 02/18/18] Metoprolol Tartrate 25 mg [Lopressor 25MG Tab] 12.5 mg PO BID 02/17/18 [ History Confirmed 02/17/18] PANTOPRAZOLE 40 mg Tablet [Protonix 40MG Tablet] 40 mg PO LUNCH 02/17/18 [ History Confirmed 02/17/18] Allergies/Adverse Reactions: Allergies Allergy/AdvReac Type Severity Reaction Status Date / Time Sulfa (Sulfonamide Allergy Verified 02/16/18 14:16 Antibiotics) - Past Medical History Past Medical History: Yes Neurological History: Stroke ENT History: Cataracts Cardiac History: Arrhythmia, Congestive Heart Failure, Hypertension Respiratory History: CHF, Pneumonia, Other Endocrine Medical History: Diabetes Type II Musculoskelatal History: Degenerative Disk Disease GI Medical History: No Pertinent History History: Renal Disease Pyscho-Social History: No Pertinent History Male Reproductive Disorders: No Pertinent History Comment: BACK SURGERY X 2012 HIP STABILIZATION, CATARACT 2000 AND 2009,black lung,lt total hip replaced, PULMONARY EDEMA AND HTN, HOME O2, ANEMIA, HYPERKALEMIA - Past Surgical History Past Surgical History: Yes Neuro Surgical History: No Pertinent History Cardiac History: Cardiac Catheterization Respiratory Surgery: No Pertinent History GI Surgical History: No Pertinent History Genitourinary Surgical Hx: No Pertinent History Musculskeletal Surgical Hx: Joint Replacement, Orthopedic Surgery, Other Male Surgical History: No Pertinent History Other Surgical History: BACK, rt shoulder,rt foot great toe, - Social History Smoking Status: Former smoker Exposure to second hand smoke: No Alcohol: None Drug Use: none - Physical Exam Vital Signs: Vital Signs - 24 hr Temp Pulse Resp BP Pulse Ox 02/18/18 11:30 97.8 F 102 H 18 116/68 97 02/18/18 10:00 102 H 18 99 02/18/18 08:13 98.8 F 96 H 18 110/59 97 02/18/18 06:48 97 H 18 96 02/18/18 04:00 98.5 F 97 H 20 120/60 96 02/18/18 00:00 98.4 F 74 18 122/64 98 02/17/18 23:59 103 H 20 93 L 02/17/18 20:00 98.4 F 96 H 20 150/65 97 02/17/18 19:57 101 H 20 93 L 02/17/18 14:43 97.7 F 94 H 20 133/74 94 L 02/17/18 14:32 97.7 F 94 H 20 133/74 94 L 02/17/18 13:54 97 H 22 128/71 100 02/17/18 13:19 96 02/17/18 13:17 98.6 F 02/17/18 13:14 92 H 22 128/71 97 Oxygen-Last 24 hours O2 Percentage 3 Liters = 32% O2 Percentage 3 Liters = 32% O2 Percentage 3 Liters = 32% O2 Percentage 3 Liters = 32% O2 Percentage 3 Liters = 32% O2 Percentage 3 Liters = 32% O2 Percentage 3 Liters = 32% O2 Percentage 4 Liters = 36% Oxygen Flowrate (L/min)-RT 3 Oxygen Flowrate (L/min)-RT 3 General Appearance: no apparent distress, alert Neurologic Exam: alert, oriented x 3, cooperative, normal mood/affect, nml cerebellar function, nml station & gait, sensation nml, No motor deficits Eye Exam: PERRL/EOMI, eyes nml inspection Ears, Nose, Throat Exam: normal ENT inspection, TMs normal, pharynx normal, moist mucous membranes Neck Exam: normal inspection, non-tender, supple, full range of motion Respiratory Exam: diminished breath sounds, crackles/rales, rhonchi, wheezing, No respiratory distress Cardiovascular Exam: regular rate/rhythm, normal heart sounds, normal peripheral pulses Gastrointestinal/Abdomen Exam: soft, normal bowel sounds, No tenderness, No mass Back Exam: normal inspection, normal range of motion, No CVA tenderness, No vertebral tenderness Extremity Exam: normal inspection, normal range of motion, pelvis stable Skin Exam: normal color, warm, dry, No rash Lymphatic Exam: No adenopathy Results - Labs Lab/Micro Results: Accuchecks Date 02/18/18 Date 02/18/18 Date 02/17/18 Time 11:30 Time 07:55 Time 22:30 Accucheck Value: 246 Accucheck Value: 124 Accucheck Value: 179 Lab Results-Last 24 Hours 02/17/18 02/17/18 02/18/18 Range/Units 17:32 Unknown 05:18 WBC 4.6 (4.0-10.5) K/mm3 RBC 2.34 L (4.1-5.6) M/mm3 Hgb 7.4 L (12.5-18.0) gm/dl Hct 25.0 L (42-50) % MCV 106.8 H (78-100) fl MCH 31.6 (26-32) pg MCHC 29.6 L (32-36) g/dl RDW 18.6 H (11.5-14.0) % Plt Count 91 L (150-450) K/mm3 MPV 9.8 H (6-9.5) fl Absolute Granulocytes 2.43 (1.4-6.9) Segmented Neutrophils 57 (36.-66.) % Band Neutrophils 3 H (0.0-2.0) % Lymphocytes (Manual) 30 (24-44) % Monocytes (Manual) 7 (0.0-12.0) % Basophils (Manual) 1 (0.0-1.0) % Metamyelocytes 1 % Differential Comment ABNORMAL Atypical Lymphocytes 1 % Platelet Estimate DECREASED (NORMAL) Polychromasia 1+ Poikilocytosis 1+ Anisocytosis 3+ Sodium (137-145) mmol/L Potassium (3.5-5.1) mmol/L Chloride (98-107) mmol/L Carbon Dioxide (22-30) mmol/L Anion Gap (5-15) MEQ/L BUN (9-20) mg/dL Creatinine (0.66-1.25) mg/dL Estimated GFR ML/MIN Glucose (74-106) mg/dL Hemoglobin A1c 6.78 H (4.5-6.0) % Calcium (8.4-10.2) mg/dL Troponin I < 0.012 (0.000-0.034) ng/mL 02/18/18 Range/Units 05:18 WBC (4.0-10.5) K/mm3 RBC (4.1-5.6) M/mm3 Hgb (12.5-18.0) gm/dl Hct (42-50) % MCV (78-100) fl MCH (26-32) pg MCHC (32-36) g/dl RDW (11.5-14.0) % Plt Count (150-450) K/mm3 MPV (6-9.5) fl Absolute Granulocytes (1.4-6.9) Segmented Neutrophils (36.-66.) % Band Neutrophils (0.0-2.0) % Lymphocytes (Manual) (24-44) % Monocytes (Manual) (0.0-12.0) % Basophils (Manual) (0.0-1.0) % Metamyelocytes % Differential Comment Atypical Lymphocytes % Platelet Estimate (NORMAL) Polychromasia Poikilocytosis Anisocytosis Sodium 138 (137-145) mmol/L Potassium 3.7 (3.5-5.1) mmol/L Chloride 98 (98-107) mmol/L Carbon Dioxide 36 H (22-30) mmol/L Anion Gap 8.3 (5-15) MEQ/L BUN 31 H (9-20) mg/dL Creatinine 2.38 H (0.66-1.25) mg/dL Estimated GFR 28.4 ML/MIN Glucose 108 H (74-106) mg/dL Hemoglobin A1c (4.5-6.0) % Calcium 8.2 L (8.4-10.2) mg/dL Troponin I (0.000-0.034) ng/mL Accuchecks Date 02/18/18 Date 02/18/18 Date 02/17/18 Time 11:30 Time 07:55 Time 22:30 Accucheck Value: 246 Accucheck Value: 124 Accucheck Value: 179 - Other Procedures and Tests Respiratory Therapy 02/17/18 19:00 Respiratory Nebulizer Q4H Assessment/Plan (1) COPD exacerbation Current Visit: Yes Status: Acute Code(s): J44.1 - CHRONIC OBSTRUCTIVE PULMONARY DISEASE W (ACUTE) EXACERBATION (2) COPD (chronic obstructive pulmonary disease) with chronic bronchitis Current Visit: Yes Status: Acute Code(s): J44.9 - CHRONIC OBSTRUCTIVE PULMONARY DISEASE, UNSPECIFIED (3) CHF (congestive heart failure) Current Visit: Yes Status: Acute Qualifiers: Heart failure type: right-sided Heart failure chronicity: acute on chronic Qualified Code(s): I50.813 - Acute on chronic right heart failure Code(s): I50.9 - HEART FAILURE, UNSPECIFIED (4) Chronic kidney disease Current Visit: Yes Status: Chronic Qualifiers: Chronic kidney disease stage: stage 2 (mild) Qualified Code(s): N18.2 - Chronic kidney disease, stage 2 (mild) Code(s): N18.9 - CHRONIC KIDNEY DISEASE, UNSPECIFIED
[2018-02-18] MEDS ORDERED: Venofer 100 MG/5 ML IV SCH (15:00)
[2018-02-18] MEDS: FOLATE 1 MG PO SCH (15:17)
[2018-02-18] MEDS ORDERED: Venofer 100 MG/5 ML*** 200 MG in Sodium Chloride 0.9% 100 ML IVPB 100 ML IV SCH (15:30)
[2018-02-18] MEDS: Neurontin 400 MG PO SCH (22:07)
[2018-02-18] MEDS: Cymbalta 30 MG Capsule PO SCH (22:07)
[2018-02-18] MEDS: ECOTRIN 81 MG PO SCH (22:08)
[2018-02-18] MEDS: Singulair 10 MG PO SCH (22:08)
[2018-02-19] MEDS: DUONEB 0.5-3 MG/3 ml Neb IH SCH ×4 (03:47→20:21)
[2018-02-19] MEDS: AMARYL 4 MG PO SCH (10:23)
[2018-02-19] MEDS: THERAGRAN MULTIVITAMIN PO SCH (10:24)
[2018-02-19] MEDS: FOLATE 1 MG PO SCH (10:24)
[2018-02-19] MEDS: NEURONTIN 300 MG PO SCH (10:24)
[2018-02-19] MEDS: ZYLOPRIM 300 MG PO SCH (10:24)
[2018-02-19] MEDS: Vitamin C 500 MG PO SCH (10:24)
[2018-02-19] MEDS: Lopressor 25MG Tab PO SCH (10:24)
[2018-02-19] MEDS: ELIQUIS 2.5 MG TABLET PO SCH (10:24)
[2018-02-19] MEDS: BUMEX 1 MG PO SCH (10:24)
[2018-02-19] MEDS: Flomax 0.4 MG PO SCH (10:24)
[2018-02-19] MEDS: Multaq 400 MG PO SCH (10:30)
[2018-02-19 11:00] LABS: Hematocrit 25.5 % (42-50); Hemoglobin 7.7 gm/dl (12.5-18.0); Mean Cell Volume 107.6 fl (78-100); Mean Corpuscular Hgb Concent. 30.2 g/dl (32-36); Mean Platelet Volume 9.2 fl (6-9.5); Platelet Count 71 K/mm3 (150-450); Red Blood Count 2.37 M/mm3 (4.1-5.6); Red Cell Distribution Width 18.8 % (11.5-14.0); White Blood Count 5.1 K/mm3 (4.0-10.5)
[2018-02-19 11:02] LABS: Mean Corpuscular Hemoglobin 32.4 pg (26-32)
[2018-02-19 11:12] LABS: ALBUMIN 2.8 g/dL (3.5-5.0); ANION GAP 9.7 MEQ/L (5-15); BILIRUBIN,TOTAL 0.4 mg/dL (0.2-1.3); Calcium 8.5 mg/dL (8.4-10.2); Creatinine 1 2.38 mg/dL (0.66-1.25); Potassium 4.1 mmol/L (3.5-5.1); Total Protein 5.9 g/dL (6.3-8.2)
[2018-02-19] MEDS: Actos 30 MG PO SCH (11:53)
[2018-02-19] MEDS: Protonix 40MG Tablet PO SCH (11:53)
[2018-02-19 12:04] LABS: Slide Review YES
--- NOTE | 2018-02-19 16:06 | PCM.NOTE ---
Date and Time: 02/19/18 1604 Subjective Assessment: doing ok, sleepy today - Review of Systems Constitutional: No Fever, No Chills Eyes: No Symptoms Ears, Nose, & Throat: No Symptoms Respiratory: No Cough, No Short Of Breath Cardiac: No Chest Pain, No Edema, No Syncope Abdominal/Gastrointestinal: No Abdominal Pain, No Nausea, No Vomiting, No Diarrhea Genitourinary Symptoms: No Dysuria Musculoskeletal: No Back Pain, No Neck Pain Skin: No Rash Neurological: No Dizziness, No Focal Weakness, No Sensory Changes Psychological: No Symptoms Endocrine: No Symptoms Hematologic/Lymphatic: No Symptoms Immunological/Allergic: No Symptoms Objective Exam General Appearance: no apparent distress, alert Neurologic Exam: alert, oriented x 3, cooperative, normal mood/affect, nml cerebellar function, sensation nml, No motor deficits Skin Exam: normal color, warm, dry Eye Exam: PERRL, EOMI, eyes nml inspection Ears, Nose, Throat Exam: normal ENT inspection, pharynx normal, moist mucous membranes Neck Exam: normal inspection, non-tender, supple, full range of motion Respiratory Exam: normal breath sounds, lungs clear, No respiratory distress Cardiovascular Exam: regular rate/rhythm, normal heart sounds Gastrointestinal/Abdomen Exam: soft, No tenderness, No mass Extremity Exam: normal inspection, normal range of motion Back Exam: normal inspection, normal range of motion, No CVA tenderness, No vertebral tenderness Male Genitalia Exam: deferred Rectal Exam: deferred OBJECTIVE DATA Vital Signs: Vital Signs - 24 hr Temp Pulse Resp BP Pulse Ox 02/19/18 11:00 98.5 F 104 H 20 110/61 92 L 02/19/18 07:28 84 18 94 L 02/19/18 07:00 98.6 F 101 H 20 117/57 92 L 02/19/18 03:00 98.1 F 104 H 20 102/57 95 02/18/18 23:40 90 18 94 L 02/18/18 23:00 98.6 F 107 H 17 127/60 96 02/18/18 19:15 101 H 18 91 L 02/18/18 19:00 97.9 F 75 18 99/57 95 Oxygen-Last 24 hours O2 Percentage 3 Liters = 32% O2 Percentage 3 Liters = 32% O2 Percentage 3 Liters = 32% O2 Percentage 3 Liters = 32% O2 Percentage 3 Liters = 32% Pain Assessment - Last Documented Pain Intensity 3 Pain Scale Used [facility] Intake and Output: Intake & Output 02/17/18 02/18/18 02/19/18 02/20/18 11:59 11:59 11:59 11:59 Intake Total 1390 120 Output Total 975 Balance 415 120 Weight 120.5 kg Lab Results: Accuchecks Date 02/19/18 Date 02/19/18 Date 02/18/18 Date 02/18/18 Time 11:30 Time 07:30 Time 22:00 Time 17:14 Accucheck Value: 167 Accucheck Value: 154 Accucheck Value: 160 Accucheck Value: 156 Lab Results-Last 24 Hours 02/19/18 02/19/18 Range/Units 10:50 10:50 WBC 5.1 (4.0-10.5) K/mm3 RBC 2.37 L (4.1-5.6) M/mm3 Hgb 7.7 L (12.5-18.0) gm/dl Hct 25.5 L (42-50) % MCV 107.6 H (78-100) fl MCH 32.4 H (26-32) pg MCHC 30.2 L (32-36) g/dl RDW 18.8 H (11.5-14.0) % Plt Count 71 L (150-450) K/mm3 MPV 9.2 (6-9.5) fl Sodium 139 (137-145) mmol/L Potassium 4.1 (3.5-5.1) mmol/L Chloride 99 (98-107) mmol/L Carbon Dioxide 35 H (22-30) mmol/L Anion Gap 9.7 (5-15) MEQ/L BUN 30 H (9-20) mg/dL Creatinine 2.38 H (0.66-1.25) mg/dL Estimated GFR 28.4 ML/MIN Glucose 154 H (74-106) mg/dL Calcium 8.5 (8.4-10.2) mg/dL Total Bilirubin 0.40 (0.2-1.3) mg/dL AST 19 (17-59) U/L ALT 13 (0-50) U/L Alkaline Phosphatase 102 (38-126) U/L Serum Total Protein 5.9 L (6.3-8.2) g/dL Albumin 2.8 L (3.5-5.0) g/dL Slides for Path Review YES Assessment/Plan (1) COPD exacerbation Current Visit: Yes Status: Acute Assessment & Plan: improving Code(s): J44.1 - CHRONIC OBSTRUCTIVE PULMONARY DISEASE W (ACUTE) EXACERBATION (2) COPD (chronic obstructive pulmonary disease) with chronic bronchitis Current Visit: Yes Status: Acute Assessment & Plan: improving Code(s): J44.9 - CHRONIC OBSTRUCTIVE PULMONARY DISEASE, UNSPECIFIED (3) CHF (congestive heart failure) Current Visit: Yes Status: Chronic Qualifiers: Heart failure type: right-sided Heart failure chronicity: acute on chronic Qualified Code(s): I50.813 - Acute on chronic right heart failure Code(s): I50.9 - HEART FAILURE, UNSPECIFIED (4) Chronic kidney disease Current Visit: Yes Status: Chronic Qualifiers: Chronic kidney disease stage: stage 2 (mild) Qualified Code(s): N18.2 - Chronic kidney disease, stage 2 (mild) Code(s): N18.9 - CHRONIC KIDNEY DISEASE, UNSPECIFIED
[2018-02-20] MEDS: Neurontin 400 MG PO SCH ×2 (00:25→21:45)
[2018-02-20] MEDS: ELIQUIS 2.5 MG TABLET PO SCH ×3 (00:25→21:47)
[2018-02-20] MEDS: Singulair 10 MG PO SCH ×2 (00:26→21:46)
[2018-02-20] MEDS: Lopressor 25MG Tab PO SCH ×3 (00:26→21:43)
[2018-02-20] MEDS: Cymbalta 30 MG Capsule PO SCH ×2 (00:26→21:48)
[2018-02-20] MEDS: AMARYL 4 MG PO SCH ×2 (00:26→09:29)
[2018-02-20] MEDS: BUMEX 1 MG PO SCH ×3 (00:28→21:43)
[2018-02-20] MEDS: Vitamin C 500 MG PO SCH ×3 (00:28→21:45)
[2018-02-20] MEDS: Multaq 400 MG PO SCH ×3 (00:28→21:47)
[2018-02-20] MEDS: NORCO 5/325 MG PO PRN ×3 (00:40→21:45)
[2018-02-20] MEDS: ECOTRIN 81 MG PO SCH ×2 (00:41→21:43)
[2018-02-20] MEDS: DUONEB 0.5-3 MG/3 ml Neb IH SCH ×3 (09:00→20:43)
[2018-02-20] MEDS: THERAGRAN MULTIVITAMIN PO SCH (09:30)
[2018-02-20] MEDS: FOLATE 1 MG PO SCH (09:30)
[2018-02-20] MEDS: NEURONTIN 300 MG PO SCH (09:30)
[2018-02-20] MEDS: ZYLOPRIM 300 MG PO SCH (09:30)
[2018-02-20] MEDS: Flomax 0.4 MG PO SCH (09:30)
[2018-02-20] MEDS: Protonix 40MG Tablet PO SCH (10:56)
[2018-02-20] MEDS: Actos 30 MG PO SCH (10:56)
--- NOTE | 2018-02-20 15:37 | PCM.NOTE ---
Date and Time: 02/20/18 1536 Subjective Assessment: doing better - Review of Systems Constitutional: No Fever, No Chills Eyes: No Symptoms Ears, Nose, & Throat: No Symptoms Respiratory: No Cough, No Short Of Breath Cardiac: No Chest Pain, No Edema, No Syncope Abdominal/Gastrointestinal: No Abdominal Pain, No Nausea, No Vomiting, No Diarrhea Genitourinary Symptoms: No Dysuria Musculoskeletal: No Back Pain, No Neck Pain Skin: No Rash Neurological: No Dizziness, No Focal Weakness, No Sensory Changes Psychological: No Symptoms Endocrine: No Symptoms Hematologic/Lymphatic: No Symptoms Immunological/Allergic: No Symptoms Objective Exam General Appearance: no apparent distress, alert Neurologic Exam: alert, oriented x 3, cooperative, normal mood/affect, nml cerebellar function, sensation nml, No motor deficits Skin Exam: normal color, warm, dry Eye Exam: PERRL, EOMI, eyes nml inspection Ears, Nose, Throat Exam: normal ENT inspection, pharynx normal, moist mucous membranes Neck Exam: normal inspection, non-tender, supple, full range of motion Respiratory Exam: normal breath sounds, lungs clear, No respiratory distress Cardiovascular Exam: regular rate/rhythm, normal heart sounds Gastrointestinal/Abdomen Exam: soft, No tenderness, No mass Extremity Exam: normal inspection, normal range of motion Back Exam: normal inspection, normal range of motion, No CVA tenderness, No vertebral tenderness Male Genitalia Exam: deferred Rectal Exam: deferred OBJECTIVE DATA Vital Signs: Vital Signs - 24 hr Temp Pulse Resp BP Pulse Ox 02/20/18 15:00 98.3 F 96 H 20 120/67 93 L 02/20/18 14:31 88 20 97 02/20/18 11:43 97.8 F 93 H 20 122/70 96 02/20/18 11:00 97.8 F 93 H 20 122/70 96 02/20/18 09:17 97 H 18 93 L 02/20/18 07:00 98.5 F 95 H 20 128/72 93 L 02/20/18 03:00 98.1 F 97 H 24 107/66 94 L 02/19/18 23:00 98.5 F 116 H 17 115/57 95 02/19/18 19:00 97.9 F 93 H 16 111/56 94 L Oxygen-Last 24 hours O2 Percentage 3 Liters = 32% O2 Percentage 3 Liters = 32% O2 Percentage 3 Liters = 32% O2 Percentage 3 Liters = 32% O2 Percentage 3 Liters = 32% O2 Percentage 3 Liters = 32% O2 Percentage 3 Liters = 32% Pain Assessment - Last Documented Pain Intensity 2 Pain Scale Used 0-10 Pain Scale Intake and Output: Intake & Output 02/18/18 02/19/18 02/20/18 02/21/18 11:59 11:59 11:59 11:59 Intake Total 1390 1320 Output Total 975 1850 200 Balance 415 -530 -200 Weight 120.5 kg 120.5 kg Lab Results: Accuchecks Date 02/20/18 Date 02/20/18 Date 02/19/18 Date 02/19/18 Time 13:13 Time 13:14 Time 22:00 Time 16:30 Accucheck Value: 211 Accucheck Value: 130 Accucheck Value: 128 Accucheck Value: 189 Assessment/Plan (1) COPD exacerbation Current Visit: Yes Status: Resolved Code(s): J44.1 - CHRONIC OBSTRUCTIVE PULMONARY DISEASE W (ACUTE) EXACERBATION (2) COPD (chronic obstructive pulmonary disease) with chronic bronchitis Current Visit: Yes Status: Resolved Code(s): J44.9 - CHRONIC OBSTRUCTIVE PULMONARY DISEASE, UNSPECIFIED (3) CHF (congestive heart failure) Current Visit: Yes Status: Chronic Qualifiers: Heart failure type: right-sided Heart failure chronicity: acute on chronic Qualified Code(s): I50.813 - Acute on chronic right heart failure Code(s): I50.9 - HEART FAILURE, UNSPECIFIED (4) Chronic kidney disease Current Visit: Yes Status: Chronic Qualifiers: Chronic kidney disease stage: stage 2 (mild) Qualified Code(s): N18.2 - Chronic kidney disease, stage 2 (mild) Code(s): N18.9 - CHRONIC KIDNEY DISEASE, UNSPECIFIED
[2018-02-21] MEDS: DUONEB 0.5-3 MG/3 ml Neb IH SCH (07:35)
[2018-02-21] MEDS: THERAGRAN MULTIVITAMIN PO SCH (09:16)
[2018-02-21] MEDS: BUMEX 1 MG PO SCH (09:16)
[2018-02-21] MEDS: NEURONTIN 300 MG PO SCH (09:16)
[2018-02-21] MEDS: ELIQUIS 2.5 MG TABLET PO SCH (09:16)
[2018-02-21] MEDS: ZYLOPRIM 300 MG PO SCH (09:16)
[2018-02-21] MEDS: Vitamin C 500 MG PO SCH (09:16)
[2018-02-21] MEDS: Flomax 0.4 MG PO SCH (09:16)
[2018-02-21] MEDS: FOLATE 1 MG PO SCH (09:17)
[2018-02-21] MEDS: Lopressor 25MG Tab PO SCH (09:17)
[2018-02-21] MEDS: Multaq 400 MG PO SCH (09:22)
[2018-02-21] MEDS: AMARYL 4 MG PO SCH (09:23)
[2018-02-21] MEDS ORDERED: VITAMIN D2 PO SCH (10:00)
--- NOTE | 2018-02-21 10:11 | PROG NOTE ---
DATE: 02/19/2018 As per patient and family preference, the patient was evaluated and is being treated per Dr. Avila throughout the weekend. ADDENDUM: As per my prior discussion with Dr. Avila, as per patient and family request Dr. Avila is evaluating and treating this patient for current weekend of 02/19/2018 and 02/20/2018. Nursing staff has been notified by Dr. Avila regarding the same.
[2018-02-21] MEDS: Actos 30 MG PO SCH (11:19)
[2018-02-21] MEDS: Protonix 40MG Tablet PO SCH (11:19)
[2018-02-21 12:16] VITALS: BP 113/66; PULSE 110; O2SAT 99
--- NOTE | 2018-02-21 12:53 | PCM.DS ---
Discharge Summary Date of Admission: 02/18/18 12:01 Admitting Physician: CONCEPCIÓN DELEON Primary Care Provider: CONCEPCIÓN DELEON Allergies Allergies Sulfa (Sulfonamide Antibiotics) Allergy (Verified 02/16/18 14:16) Hospital Summary - Hospital Course Hospital Course: Chief Complaint Diagnosis CHF, SOB, HYPOXIA Allergies Allergy/AdvReac Type Severity Reaction Status Date / Time Sulfa (Sulfonamide Allergy Verified 02/16/18 14:16 Antibiotics) Vital Signs (Last 24 hours) Temp Pulse Resp BP Pulse Ox 02/21/18 12:00 97.4 F 110 H 18 113/66 99 02/21/18 08:00 98.5 F 101 H 18 118/56 94 L 02/21/18 07:35 95 H 16 91 L 02/21/18 03:30 98.0 F 98 H 18 104/58 95 02/20/18 23:42 98.4 F 103 H 24 108/58 97 02/20/18 20:44 90 22 96 02/20/18 19:54 97.9 F 92 H 22 120/62 96 02/20/18 15:00 98.3 F 96 H 20 120/67 93 L 02/20/18 14:31 88 20 97 Home Medications Medication Instructions Recorded Confirmed Last Taken Type Folic Acid 800 mg PO DAILY 02/17/18 02/18/18 02/17/18 History Metoprolol Tartrate 25 mg 12.5 mg PO BID 02/17/18 02/17/18 02/17/18 History [Lopressor 25MG Tab] PANTOPRAZOLE 40 mg Tablet 40 mg PO LUNCH 02/17/18 02/17/18 02/17/18 History [Protonix 40MG Tablet] Current Medications Generic Name Dose Route Start Last Admin Trade Name Freq PRN Reason Stop Dose Admin Hydrocodone Bitart/Acetaminophen 1 tab 02/17/18 16:49 02/20/18 21:45 [place] 5/325 Mg PO 02/22/18 16:48 1 tab Q8H PRN PRN Administration SEVERE PAIN Albuterol/Ipratropium 3 ml 02/19/18 13:00 02/21/18 07:35 Duoneb 0.5-3 Mg/3 Ml Neb IH 03/21/18 12:59 3 ml TIDRT [place] Administration Allopurinol 300 mg 02/18/18 10:00 02/21/18 09:16 Zyloprim 300 Mg PO 03/20/18 09:59 300 mg DAILY RO[place] Administration Apixaban 2.5 mg 02/17/18 22:00 02/21/18 09:16 Eliquis 2.5 Mg Tablet PO 03/19/18 21:59 2.5 mg BID RO[place] Administration Ascorbic Acid 1,000 mg 02/17/18 22:00 02/21/18 09:16 Vitamin C 500 Mg PO 03/19/18 21:59 1,000 mg BID [place] Administration Aspirin 81 mg 02/17/18 22:00 02/20/18 21:43 Ecotrin 81 Mg PO 03/19/18 21:59 81 mg HS [place] Administration Benzonatate 100 mg 02/17/18 16:49 Tessalon Perles 100 Mg PO 03/19/18 16:48 DAILY PRN PRN COUGH Bumetanide 1 mg 02/17/18 22:00 02/21/18 09:16 Bumex 1 Mg PO 03/19/18 21:59 1 mg BID [place] Administration Dronedarone 200 mg 02/17/18 22:00 02/21/18 09:22 Multaq 400 Mg PO 03/19/18 21:59 200 mg BID [place] Administration Duloxetine HCl 30 mg 02/17/18 22:00 02/20/18 21:48 Cymbalta 30 Mg Capsule PO 03/19/18 21:59 30 mg HS [place] Administration Ergocalciferol 50,000 unit 02/21/18 10:00 Vitamin D2 PO 03/23/18 09:59 WEEKLY RO[place] Folic Acid 1 mg 02/18/18 14:00 02/21/18 09:17 Folate 1 Mg PO 03/20/18 13:59 1 mg DAILY [place] Administration Gabapentin 300 mg 02/18/18 10:00 02/21/18 09:16 Neurontin 300 Mg PO 03/20/18 09:59 300 mg DAILY [place] Administration Gabapentin 1,200 mg 02/17/18 22:00 02/20/18 21:45 Neurontin 400 Mg PO 03/19/18 21:59 1,200 mg HS RO[place] Administration Glimepiride 8 mg 02/19/18 10:00 02/21/18 09:23 Amaryl 4 Mg PO 03/21/18 09:59 8 mg DAILY [place] Administration Metoprolol Tartrate 12.5 mg 02/17/18 22:00 02/21/18 09:17 Lopressor 25mg Tab PO 03/19/18 21:59 12.5 mg BID RO[place] Administration Montelukast Sodium 10 mg 02/17/18 22:00 02/20/18 21:46 Singulair 10 Mg PO 03/19/18 21:59 10 mg HS RO[place] Administration Multivitamins 1 tab 02/18/18 10:00 02/21/18 09:16 Theragran Multivitamin PO 03/20/18 09:59 1 tab DAILY [place] Administration Pantoprazole Sodium 40 mg 02/18/18 12:00 02/21/18 11:19 Protonix 40mg Tablet PO 03/20/18 11:59 40 mg LUNCH [place] Administration Pioglitazone HCl 30 mg 02/18/18 12:00 02/21/18 11:19 Actos 30 Mg PO 03/20/18 11:59 30 mg LUNCH [place] Administration Tamsulosin HCl 0.4 mg 02/18/18 10:00 02/21/18 09:16 Flomax 0.4 Mg PO 03/20/18 09:59 0.4 mg DAILY RO[place] Administration Discontinued Medications Generic Name Dose Route Start Last Admin Trade Name Freq PRN Reason Stop Dose Admin Albuterol Sulfate 2.5 mg 02/17/18 10:52 Proventil 2.5 Mg/3 Ml Neb IH 02/17/18 10:53 STAT ONE Albuterol/Ipratropium 3 ml 02/17/18 15:00 02/19/18 07:12 Duoneb 0.5-3 Mg/3 Ml Neb IH 03/19/18 14:59 3 ml Q4HRT [place] Administration Furosemide 20 mg 02/17/18 13:17 02/17/18 14:02 Lasix 40 Mg/4 Ml IV 02/17/18 13:18 20 mg STAT ONE Administration Furosemide Confirm 02/17/18 14:00 Lasix 40 Mg/4 Ml Administered 02/17/18 14:01 Dose 40 mg .ROUTE .STK-MED ONE Glimepiride 9 mg 02/18/18 10:00 02/18/18 09:40 Amaryl 4 Mg PO 03/20/18 09:59 9 mg DAILY RO[place] Administration Iron Sucrose 200 mg/ Sodium 110 mls @ 400 mls/hr 02/18/18 15:30 02/18/18 15: 17 Chloride IV 02/18/18 15:47 400 mls/hr 1530 RO[place] Administration Intake & Output (Last 24 hours) 02/19/18 02/20/18 02/21/18 02/22/18 11:59 11:59 11:59 11:59 Intake Total 1390 1320 760 Output Total 975 1850 650 Balance 415 -530 110 Weight 120.5 kg 120.5 kg 120.7 kg Orders (Last 24 hours) Category Date Time Status Ergocalciferol (Vitamin D2) [Vitamin D2] Med 02/21/18 10:00 Active 50,000 unit PO WEEKLY - Vitals & Intake/Output Vital Signs: Vital Signs Temperature 97.4 F 02/21/18 12:00 Pulse Rate 110 H 02/21/18 12:00 Respiratory Rate 18 02/21/18 12:00 Blood Pressure 113/66 02/21/18 12:00 O2 Sat by Pulse Oximetry 99 02/21/18 12:00 Oxygen-Last Documented O2 Percentage 3 Liters = 32% Intake & Output: Intake & Output 02/19/18 02/20/18 02/21/18 02/22/18 11:59 11:59 11:59 11:59 Intake Total 1390 1320 760 Output Total 975 1850 650 Balance 415 -530 110 Weight 120.5 kg 120.5 kg 120.7 kg - Lab Result Diagrams: 02/19/18 10:50 02/19/18 10:50 Lab Results-Last 24 Hrs: Accuchecks Date 02/21/18 Date 02/21/1802/20/18 Date 02/20/18 Time 07:30 Time 16:30 Accucheck Value: 285 Accucheck Value: 153 Accucheck Value: 169 Accucheck Value: 188 Micro Results-Entire Visit: Accuchecks Date 02/21/18 Date 02/21/18 Date 02/20/18 Date 02/20/18 Time 07:30 Time 16:30 Accucheck Value: 285 Accucheck Value: 153 Accucheck Value: 169 Accucheck Value: 188 - Procedures and Test Procedures and Tests throughout Hospitalization: Therapy Orders & Screens 02/19/18 07:28 Respiratory Nebulizer TID Comment: Diagnosis: CHF, SOB, HYPOXIA Discharge Exam General Appearance: no apparent distress, alert Neurologic Exam: alert, oriented x 3, cooperative, normal mood/affect, nml cerebellar function, sensation nml, No motor deficits Skin Exam: normal color, warm, dry Eye Exam: PERRL, EOMI, eyes nml inspection Ears, Nose, Throat Exam: normal ENT inspection, pharynx normal, moist mucous membranes Neck Exam: normal inspection, non-tender, supple, full range of motion Respiratory Exam: normal breath sounds, lungs clear, No respiratory distress Cardiovascular Exam: regular rate/rhythm, normal heart sounds Gastrointestinal/Abdomen Exam: soft, No tenderness, No mass Extremity Exam: normal inspection, normal range of motion Back Exam: normal inspection, normal range of motion, No CVA tenderness, No vertebral tenderness Male Genitalia Exam: deferred Rectal Exam: deferred Final Diagnosis/Problem List - Final Discharge Diagnosis/Problem (1) COPD exacerbation Current Visit: Yes Status: Resolved (2) COPD (chronic obstructive pulmonary disease) with chronic bronchitis Current Visit: Yes Status: Resolved (3) CHF (congestive heart failure) Current Visit: Yes Status: Chronic (4) Chronic kidney disease Current Visit: Yes Status: Chronic - Discharge Discharge Date: 02/21/18 Disposition: [place] TO [facility] Condition: Stable Prescriptions: New Ferrous Fumarate 324 mg PO TID #90 tablet Continue Duloxetine HCl 30 mg [Cymbalta 30 MG Capsule] 30 mg PO HS Glimepiride 9 mg PO DAILY Allopurinol 300 mg [Zyloprim 300 mg] 300 mg PO DAILY Multivitamin,Ther and Minerals [Vitamin and Minerals] 1 tab PO DAILY Gabapentin 300 mg PO DAILY Aspirin 81 mg PO HS Dronedarone Hydrochloride 400* [Multaq 400 MG] 200 mg PO BID Ipratropium/Albuterol Sulfate [Combivent Inhaler] 15 gm IH Q4HPRN PRN PRN Reason: Shortness Of Breath/Wheezing Apixaban [Eliquis 2.5 mg Tablet] 2.5 mg PO BID Bumetanide 1 mg [Bumex 1 mg] 1 mg PO BID Pioglitazone 30 mg [Actos 30 MG] 30 mg PO LUNCH Ascorbic Acid [Vitamin C] 1,000 mg PO BID Ergocalciferol (Vitamin D2) [Vitamin D] 50,000 unit PO WEEKLY Tamsulosin HCl 0.4 mg [Flomax 0.4 MG] 0.4 mg PO DAILY Montelukast Sodium 10 mg [Singulair 10 MG] 10 mg PO HS Benzonatate [Tessalon Perle] 100 mg PO DAILY PRN PRN PRN Reason: Cough Gabapentin 1,200 mg PO HS Patiromer Calcium Sorbitex [Veltassa] 8.4 gm PO WEEKLY Metoprolol Tartrate 25 mg [Lopressor 25MG Tab] 12.5 mg PO BID PANTOPRAZOLE 40 mg Tablet [Protonix 40MG Tablet] 40 mg PO LUNCH Folic Acid 800 mg PO DAILY Hydrocodone Bit/Acetaminophen [[place] 5-325 Tablet] 1 each PO Q8H PRN PRN #45 tablet MDD 3 a day PRN Reason: Severe Pain Follow up with: CONCEPCIÓN DELEON MD [Primary Care Provider] - 1 Week Forms: Patient Portal Information
== END 2018-02-21 14:10 | DRG 192 ==
LOC: ED 10:48 → MED SURG 14:25 → OBSVTOIN 02-18 12:01
PROVIDERS: ADMIT General Practice; ATTEND General Practice
DX: J44.1 Chronic obstructive pulmonary disease with (acute) exacerbation (principal); I50.813 Acute on chronic right heart failure; I12.9 Hypertensive chronic kidney disease with stage 1 through stage 4 chronic kidney disease, or unspecified chronic kidney disease; N18.9 Chronic kidney disease, unspecified; E11.9 Type 2 diabetes mellitus without complications; D64.9 Anemia, unspecified; Z99.81 Dependence on supplemental oxygen; Z87.891 Personal history of nicotine dependence
CPT/HCPCS: 36000; 36415; 70450; 71045; 80048; 80053; 81002; 82805; 82962; 83036; 83605; 83880; 84484; 85025; 85027; 85610; 85730; 93005; 93041; 93268; 94150; 94640; 94760; 99285; G0378; J1756; J1940; A9270-GY

== ENCOUNTER 2018-11-29 15:05 | Emergency (ER) | payer BLACK LUNG, MEDICARE, OTHER ==
[2018-11-29 15:31] VITALS: BP 129/81; PULSE 68; O2SAT 97
--- NOTE | 2018-11-29 15:48 | ERPHSYRPT ---
- History of Present Illness Time Seen by Provider: 11/29/18 15:42 Source: patient Exam Limitations: no limitations Patient Subjective Stated Complaint: fell over a rug and landed on his left knee , hx of left hip replacement Triage Nursing Assessment: Pt c/o of left knee and bilateral hip pain due to tripping on a rug at the [employer] store, landed on concrete, hx of left hip replacement, abrasions on left knee, pain with palpatation, unable to place much weight on leg, vitals wnl, pulses normal, capillary refill normal, rates pain 08/24 Physician History: 78-year-old white male arrives with complaint of left knee pain bilateral hip pain after tripping over a rug and landing on his left knee at approximately 1: 00 this afternoon. Past medical history includes CVA, cataracts, arrhythmia, congestive heart failure, high blood pressure, diabetes type 1, degenerative disc disease, back surgery 3, left hip stabilization, left hip total arthroplasty, cataracts, black lung disease. Past surgical history includes cardiac catheter, left total hip, right rotator cuff surgery, right foot surgery, right great toe surgery social history former smoker. . Method of Injury: fell (tripped and fell) Occurred: this afternoon (1:00 this afternoon) Quality: constant, aching Severity of Pain-Max: moderate Severity of Pain-Current: mild Lower Extremities Pain: hip: bilateral, knee: left Modifying Factors: Improves With: nothing Associated Symptoms: unable to bear weight Allergies/Adverse Reactions: Sulfa (Sulfonamide Antibiotics) Allergy (Verified 11/29/18 15:32) Home Medications: Allopurinol 300 mg [Zyloprim 300 mg] 300 mg PO DAILY 05/06/15 [History] Aspirin 81 mg PO HS 05/06/15 [History] Duloxetine HCl 30 mg [Cymbalta 30 MG Capsule] 30 mg PO HS 05/06/15 [ History] Gabapentin 300 mg PO DAILY 05/06/15 [History] Glimepiride 8 mg PO DAILY 05/06/15 [History] Dronedarone Hydrochloride 400* [Multaq 400 MG] 200 mg PO BID 01/27/17 [ History] Apixaban [Eliquis 2.5 mg Tablet] 2.5 mg PO BID 02/10/18 [History] Ascorbic Acid [Vitamin C] 1,000 mg PO BID 02/10/18 [History] Bumetanide 1 mg [Bumex 1 mg] 1 mg PO BID 02/10/18 [History] Ergocalciferol (Vitamin D2) [Vitamin D] 50,000 unit PO WEEKLY 02/10/18 [History] Gabapentin 600 mg PO HS 02/10/18 [History] Ipratropium/Albuterol Sulfate [Combivent Inhaler] 15 gm IH Q4HPRN PRN 02/10/18 [ History] Montelukast Sodium 10 mg [Singulair 10 MG] 10 mg PO HS 02/10/18 [History] Pioglitazone 30 mg [Actos 30 MG] 30 mg PO LUNCH 02/10/18 [History] Tamsulosin HCl 0.4 mg [Flomax 0.4 MG] 0.4 mg PO DAILY 02/10/18 [History] Folic Acid 800 mg PO DAILY 02/17/18 [History] PANTOPRAZOLE 40 mg Tablet [Protonix 40MG Tablet] 40 mg PO LUNCH 02/17/18 [ History] Glucagon 1 mg [GlucaGen 1 MG] 1 mg IM STAT 03/02/18 [History] Benzonatate [Tessalon Perle] 100 mg PO UD PRN 11/29/18 [History] Calcifediol [Rayaldee] 1 cap PO DAILY 11/29/18 [History] Hydrocodone/APAP 10/325 mg [[place] 10/325 MG Tablet] 1 tab PO Q4H PRN PRN 11/29/18 [History] Hx Tetanus, Diphtheria Vaccination/Date Given: Yes Hx Influenza Vaccination/Date Given: Yes Hx Pneumococcal Vaccination/Date Given: Yes - Review of Systems Constitutional: No Fever, No Chills Eyes: No Symptoms Ears, Nose, & Throat: No Symptoms Respiratory: No Cough, No Dyspnea Cardiac: No Chest Pain, No Edema, No Syncope Abdominal/Gastrointestinal: No Abdominal Pain, No Nausea, No Vomiting, No Diarrhea Genitourinary Symptoms: No Dysuria Musculoskeletal: Fall, Other (left knee pain, bilateral hip pain) Neurological: No Dizziness, No Focal Weakness, No Sensory Changes Psychological: No Symptoms Endocrine: No Symptoms All Other Systems: Reviewed and Negative - Past Medical History Pertinent Past Medical History: Yes Neurological History: Stroke ENT History: Cataracts Cardiac History: Arrhythmia, Congestive Heart Failure, Hypertension Respiratory History: CHF, Pneumonia, Other Endocrine Medical History: Diabetes Type II Musculoskeletal History: Degenerative Disk Disease GI Medical History: No Pertinent History History: Renal Disease Psycho-Social History: No Pertinent History Male Reproductive Disorders: No Pertinent History Other Medical History: BACK SURGERY X 2012 HIP STABILIZATION, CATARACT 2000 AND 2009,black lung,lt total hip replaced, PULMONARY EDEMA AND HTN, HOME O2, ANEMIA, HYPERKALEMIA - Past Surgical History Past Surgical History: Yes Neuro Surgical History: No Pertinent History Cardiac: Cardiac Catheterization Respiratory: No Pertinent History Gastrointestinal: No Pertinent History Genitourinary: No Pertinent History Musculoskeletal: Joint Replacement, Orthopedic Surgery, Other Male Surgical History: No Pertinent History Other Surgical History: BACK, rt shoulder,rt foot great toe, - Social History Smoking Status: Former smoker Exposure to second hand smoke: No Drug Use: none Patient Lives Alone: No - Nursing Vital Signs Nursing Vital Signs: Initial Vital Signs Temperature 97.4 F 11/29/18 15:17 Pulse Rate 68 11/29/18 15:17 Blood Pressure 129/81 11/29/18 15:17 O2 Sat by Pulse Oximetry 97 11/29/18 15:17 Pain Scale Pain Intensity 10 - Physical Exam General Appearance: alert Eyes, Ears, Nose, Throat Exam: moist mucous membranes Neck Exam: non-tender, supple Cardiovascular/Respiratory Exam: chest non-tender, normal breath sounds, regular rate/rhythm, no respiratory distress Gastrointestinal/Abdominal Exam: non-tender, guarding Back Exam: normal inspection, No vertebral tenderness Hips Exam: right: normal range of motion, bilateral: other (mild tenderness with palpation bilateral lateral hips) Legs Exam: bilateral leg: non-tender, normal inspection, normal range of motion , no evidence of injury Knees Exam: right knee: non-tender, normal inspection, normal range of motion, no evidence of injury, left knee: other (decreased range of motion left knee secondary to pain, pain with palpation anterior left knee.) Ankle Exam: bilateral ankle: non-tender, normal inspection, normal range of motion, no evidence of injury Foot Exam: bilateral foot: non-tender, normal inspection, normal range of motion , no evidence of injury DTR - Lower Extremities Exam: ankle (R): 2+, ankle (L): 2+ Neuro/Tendon Exam: normal sensation, normal motor functions Mental Status Exam: alert, oriented x 3, cooperative Skin Exam: normal color, warm, dry SpO2 Interpretation: normal (97%) SpO2: 97 Oxygen Delivery: Room Air - Course Nursing assessment & vital signs reviewed: Yes Ordered Tests: Active Orders 24 hr Category Date Time Status Immobilizer STAT Care 11/29/18 16:12 Active KNEE (3 VIEWS) Stat Exams 11/29/18 15:40 Taken PELVIS (1 OR 2 VIEWS) Stat Exams 11/29/18 15:41 Taken - Progress Progress: improved Progress Note: 11/29/18 15:46 78-year-old white male arrives with complaint of pain in his left anterior knee decreased range of motion to his left knee and pain in bilateral hips after falling. He states he tripped over a rug at a store landing on his left knee he states later on he went to get up and had pain and was unable to walk on his left leg. Patient complains of bilateral hip pain he has had left hip total arthroplasty. Patient has decreased range of motion to the left hip secondary to pain in the left knee he has full range of motion to the right knee he has mild tenderness with palpation laterally on bilateral hips. Patient is chronically on [place] he states he took one around 2:00 he does not want any pain medications at this time. The states that this point he just wants to see what happened to his knee and his hips. 11/29/18 16:13 X-ray pelvis (my read) hardware in place left pelvis left total hip arthroplasty no acute fractures or subluxation. X-ray left knee (my read) no fractures or subluxation. Will have nurse place left knee immobilizer. Patient states he has crutches, a wheelchair, and [place] at home. He states he is planning to see Dr. Deleon in 2 days for a refill of his [place]. - Departure Time of Disposition: 16:14 Departure Disposition: Home Clinical Impression: Bilateral hip pain Accidental fall Qualifiers: Encounter type: initial encounter Qualified Code(s): W19.XXXA - Unspecified fall, initial encounter Contusion of left knee Qualifiers: Encounter type: initial encounter Qualified Code(s): S80.02XA - Contusion of left knee, initial encounter Condition: Fair Critical Care Time: No Referrals: CONCEPCIÓN DELEON MD [Primary Care Provider] - Instructions: Knee Pain (DC) Additional Instructions: Return home. Ice to left knee 24-48 hours. Crutches weightbearing left leg as tolerated. [place] as prescribed by your family doctor. Follow-up with your family doctor. Return for acute distress or for severe symptoms.
--- NOTE | 2018-11-29 16:26 | XRAY ---
Indication: Pain following fall. Comparison: None Single AP pelvis demonstrates osteopenia, left total hip arthroplasty, moderate right hip degenerative arthropathy, moderate lower lumbar degenerative spondylosis, scattered vascular calcifications, and fusion surgery of the lower lumbar and left SI joint. No other bony, articular, or soft tissue abnormalities.
--- NOTE | 2018-11-29 16:26 | XRAY ---
Indication: Pain following fall. Comparison: None 4 views of the left knee demonstrates osteopenia, mild medial joint space narrowing, small suprapatellar spur, tiny effusion, posterior vascular calcifications, and anterior soft tissue swelling. No other bony, articular, or soft tissue abnormalities.
== END 2018-11-29 16:30 | disposition home or self-care (01) ==
LOC: ED 15:05
DX: M25.552 Pain in left hip (principal); M25.551 Pain in right hip; S80.212A Abrasion, left knee, initial encounter; M25.562 Pain in left knee; S80.02XA Contusion of left knee, initial encounter; W01.198A Fall on same level from slipping, tripping and stumbling with subsequent striking against other object, initial encounter; Y92.29 Other specified public building as the place of occurrence of the external cause; Z96.642 Presence of left artificial hip joint; I50.9 Heart failure, unspecified; I10 Essential (primary) hypertension; E10.9 Type 1 diabetes mellitus without complications; J60 Coalworker's pneumoconiosis; Z86.73 Personal history of transient ischemic attack (TIA), and cerebral infarction without residual deficits; Z87.891 Personal history of nicotine dependence; Z79.01 Long term (current) use of anticoagulants; Z79.899 Other long term (current) drug therapy
CPT/HCPCS: 72170; 73562; 99283; L1830

== ENCOUNTER 2019-04-17 22:18 | Emergency (ER) | payer BLACK LUNG, MEDICARE, OTHER ==
[2019-04-17] MEDS ORDERED: Zofran 4 MG/2 ML VIAL IV ONE (23:00)
[2019-04-17] MEDS ORDERED: Sodium Chloride 0.9% 1000 ML 1,000 ML IV STA (23:00)
[2019-04-17] MEDS ORDERED: Zofran 4 MG/2 ML VIAL ONE (23:05)
[2019-04-17] MEDS ORDERED: Sodium Chloride 0.9% 1000 ML 1,000 ML ONE (23:05)
--- NOTE | 2019-04-17 23:08 | ERPHSYRPT ---
- History of Present Illness Time Seen by Provider: 04/17/19 22:55 Patient Subjective Stated Complaint: pt states he began vomiting and having vertigo this evening. states he took 3 glucose tablets after it began and felt better but has continued to have vomiting and vertigo since. Triage Nursing Assessment: pt alet and oriented, answers questions approp. pt ambulatory with steady gait noted. respirations nonlabored with lungs cta. skin pink warm and dry. abd soft, nontender. bowel sounds present, hypo. Physician History: 79 y/o obese white male presents with dizziness and dry heaves. pt fell ok until approx 2 to 3 hours ago. pt ate fish at 1600 today. pt and his spouse felt a bit ill later in the afternoon. pt states he was driving his tractor when his sx began. pt denies cp, denies soa and denies abd pain. 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 Timing/Duration: today Activities at Onset: none Abdominal Pain Onset Location: generalized abdomen (very mild secondary to vomiting per pt) Pain Radiation: no radiation Severity of Pain-Max: none Severity of Pain-Current: none Modifying Factors: Improves With: vomiting Associated Symptoms: nausea, vomiting Previous symptoms: no prior history Allergies/Adverse Reactions: Sulfa (Sulfonamide Antibiotics) Allergy (Verified 11/29/18 15:32) Home Medications: Allopurinol 300 mg [Zyloprim 300 mg] 300 mg PO DAILY 05/06/15 [History] Aspirin 81 mg PO HS 05/06/15 [History] Duloxetine HCl 30 mg [Cymbalta 30 MG Capsule] 30 mg PO HS 05/06/15 [ History] Gabapentin 300 mg PO DAILY 05/06/15 [History] Glimepiride 8 mg PO DAILY 05/06/15 [History] Dronedarone Hydrochloride 400* [Multaq 400 MG] 200 mg PO BID 01/27/17 [ History] Apixaban [Eliquis 2.5 mg Tablet] 2.5 mg PO BID 02/10/18 [History] Ascorbic Acid [Vitamin C] 1,000 mg PO BID 02/10/18 [History] Bumetanide 1 mg [Bumex 1 mg] 1 mg PO BID 02/10/18 [History] Ergocalciferol (Vitamin D2) [Vitamin D] 50,000 unit PO WEEKLY 02/10/18 [History] Gabapentin 600 mg PO HS 02/10/18 [History] Ipratropium/Albuterol Sulfate [Combivent Inhaler] 15 gm IH Q4HPRN PRN 02/10/18 [ History] Montelukast Sodium 10 mg [Singulair 10 MG] 10 mg PO HS 02/10/18 [History] Pioglitazone 30 mg [Actos 30 MG] 30 mg PO LUNCH 02/10/18 [History] Tamsulosin HCl 0.4 mg [Flomax 0.4 MG] 0.4 mg PO DAILY 02/10/18 [History] Folic Acid 800 mg PO DAILY 02/17/18 [History] PANTOPRAZOLE 40 mg Tablet [Protonix 40MG Tablet] 40 mg PO LUNCH 02/17/18 [ History] Glucagon 1 mg [GlucaGen 1 MG] 1 mg IM STAT 03/02/18 [History] Benzonatate [Tessalon Perle] 100 mg PO UD PRN 11/29/18 [History] Calcifediol [Rayaldee] 1 cap PO DAILY 11/29/18 [History] Hydrocodone/APAP 10/325 mg [[place] 10/325 MG Tablet] 1 tab PO Q4H PRN PRN 11/29/18 [History] Hx Tetanus, Diphtheria Vaccination/Date Given: Yes Hx Influenza Vaccination/Date Given: Yes Hx Pneumococcal Vaccination/Date Given: Yes Immunizations Up to Date: Yes - Review of Systems Constitutional: No Symptoms Eyes: No Symptoms Ears, Nose, & Throat: No Symptoms Respiratory: No Symptoms Cardiac: No Symptoms Abdominal/Gastrointestinal: Nausea, Vomiting, No Diarrhea Genitourinary Symptoms: No Symptoms Musculoskeletal: No Symptoms Skin: No Symptoms Neurological: No Symptoms Psychological: No Symptoms Endocrine: No Symptoms Hematologic/Lymphatic: No Symptoms Immunological/Allergic: No Symptoms All Other Systems: Reviewed and Negative - Past Medical History Pertinent Past Medical History: Yes Neurological History: Stroke ENT History: Cataracts Cardiac History: Arrhythmia, Congestive Heart Failure, Hypertension Respiratory History: CHF, Pneumonia, Other Endocrine Medical History: Diabetes Type II Musculoskeletal History: Degenerative Disk Disease GI Medical History: No Pertinent History History: Renal Disease Psycho-Social History: No Pertinent History Male Reproductive Disorders: No Pertinent History Other Medical History: BACK SURGERY X 3, 2012 HIP STABILIZATION, CATARACT 2000 AND 2009,black lung,lt total hip replaced, PULMONARY EDEMA AND HTN, HOME O2, ANEMIA, HYPERKALEMIA - Past Surgical History Past Surgical History: Yes Neuro Surgical History: No Pertinent History Cardiac: Cardiac Catheterization Respiratory: No Pertinent History Gastrointestinal: No Pertinent History Genitourinary: No Pertinent History Musculoskeletal: Joint Replacement, Orthopedic Surgery, Other Male Surgical History: No Pertinent History Other Surgical History: BACK, rt shoulder,rt foot great toe, - Social History Smoking Status: Former smoker Exposure to second hand smoke: No Drug Use: none Patient Lives Alone: No - Nursing Vital Signs Nursing Vital Signs: Initial Vital Signs Temperature 98.2 F 04/17/19 22:33 Pulse Rate 83 04/17/19 22:33 Respiratory Rate 18 04/17/19 22:33 Blood Pressure 131/86 04/17/19 22:33 O2 Sat by Pulse Oximetry 95 04/17/19 22:33 Pain Scale Pain Intensity 2 - Physical Exam General Appearance: no apparent distress, alert, anxiety Eye Exam: PERRL/EOMI Ears, Nose, Throat Exam: normal ENT inspection, moist mucous membranes Neck Exam: normal inspection, non-tender, supple, full range of motion Respiratory Exam: normal breath sounds, lungs clear, airway intact, No chest tenderness, No respiratory distress Cardiovascular Exam: regular rate/rhythm, normal heart sounds, normal peripheral pulses Gastrointestinal/Abdomen Exam: soft, normal bowel sounds, No tenderness, No guarding, No rebound Back Exam: normal inspection, normal range of motion, CVA tenderness, vertebral tenderness Extremity Exam: normal inspection, normal range of motion, pelvis stable Neurologic Exam: alert, oriented x 3, cooperative, wet suit gluer II-XII nml as tested, normal mood/affect, nml cerebellar function, nml station & gait Skin Exam: normal color, warm, dry Lymphatic Exam: No adenopathy SpO2 Interpretation: normal SpO2: 95 O2 Delivery: Room Air - Course Nursing assessment & vital signs reviewed: Yes Ordered Tests: Active Orders 24 hr Category Date Time Status IV Insertion STAT Care 04/17/19 23:00 Active AMYLASE Stat Lab 04/17/19 23:00 Completed CBC W DIFF Stat Lab 04/17/19 23:00 Completed CMP Stat Lab 04/17/19 23:00 Completed LIPASE Stat Lab 04/17/19 23:00 Completed Lactic Acid Stat Lab 04/17/19 23:00 Completed UA W/RFX UR CULTURE Stat Lab 04/18/19 00:16 Completed Medication Summary Discontinued Medications Generic Name Dose Route Start Last Admin Trade Name Bryce PRN Reason Stop Dose Admin Sodium Chloride 1,000 mls @ 999 mls/hr 04/17/19 23:00 04/18/19 00:17 Sodium Chloride 0.9% 1000 Ml IV 04/18/19 00:00 Infused .Q1H1M STA Infusion Sodium Chloride Confirm 04/17/19 23:05 Sodium Chloride 0.9% 1000 Ml Administered 04/17/19 23:06 Dose 1,000 mls @ ud .ROUTE .STK-MED ONE Ondansetron HCl 4 mg 04/17/19 23:00 04/17/19 23:10 Zofran 4 Mg/2 Ml Vial IV 04/17/19 23:01 4 mg STAT ONE Administration Ondansetron HCl Confirm 04/17/19 23:05 Zofran 4 Mg/2 Ml Vial Administered 04/17/19 23:06 Dose 4 mg .ROUTE .STK-MED ONE Lab/Rad Data: Laboratory Result Diagrams 04/17/19 23:00 04/17/19 23:00 Laboratory Results 04/18/19 04/17/19 04/17/19 Range/Units 00:16 23:00 23:00 WBC (4.0-10.5) K/mm3 RBC (4.1-5.6) M/mm3 Hgb (12.5-18.0) gm/dl Hct (42-50) % MCV (78-100) fl MCH (26-32) pg MCHC (32-36) g/dl RDW (11.5-14.0) % Plt Count (150-450) K/mm3 MPV (6-9.5) fl Gran % (36.0-66.0) % Eos # (Auto) (0-0.5) Absolute Lymphs (auto) (1.0-4.6) Absolute Monos (auto) (0.0-1.3) Lymphocytes % (24.0-44.0) % Monocytes % (0.0-12.0) % Eosinophils % (0.00-5.0) % Basophils % (0.0-0.4) % Absolute Granulocytes (1.4-6.9) Basophils # (0-0.4) Sodium 138 (137-145) mmol/L Potassium 4.1 (3.5-5.1) mmol/L Chloride 101 (98-107) mmol/L Carbon Dioxide 29 (22-30) mmol/L Anion Gap 11.6 (5-15) MEQ/L BUN 32 H (9-20) mg/dL Creatinine 2.00 H (0.66-1.25) mg/dL Estimated GFR 34.5 ML/MIN Glucose 133 H (74-106) mg/dL Lactic Acid 1.5 (0.4-2.0) Calcium 9.3 (8.4-10.2) mg/dL Total Bilirubin 0.70 (0.2-1.3) mg/dL AST 18 (17-59) U/L ALT 14 (0-50) U/L Alkaline Phosphatase 119 (38-126) U/L Serum Total Protein 7.3 (6.3-8.2) g/dL Albumin 3.7 (3.5-5.0) g/dL Amylase 54 (30-110) U/L Lipase 35 (23-300) U/L Urine Color YELLOW (YELLOW) Urine Appearance CLEAR (CLEAR) Urine pH 5.0 (5-6) Ur Specific [place] 1.012 (1.005-1.025) Urine Protein NEGATIVE (Negative) Urine Ketones NEGATIVE (NEGATIVE) Urine Blood NEGATIVE (0-5) Ki/ul Urine Nitrite NEGATIVE (NEGATIVE) Urine Bilirubin NEGATIVE (NEGATIVE) Urine Urobilinogen NEGATIVE (0-1) mg/dL Ur Leukocyte Esterase NEGATIVE (NEGATIVE) Urine WBC (Auto) 0-2 (0-5) /HPF Urine RBC (Auto) 0-2 (0-2) /HPF U Hyaline Cast (Auto) 6-10 (0-2) /LPF U Epithel Cells (Auto) RARE (FEW) /HPF Urine Bacteria (Auto) RARE (NEGATIVE) /HPF Other Casts (Auto) NEGATIVE (NEGATIVE) /LPF Urine Mucus (Auto) SLIGHT (NEGATIVE) /HPF Urine Culture Reflexed NO (NO) Urine Glucose NEGATIVE (NEGATIVE) mg/dL 04/17/19 Range/Units 23:00 WBC 8.6 (4.0-10.5) K/mm3 RBC 3.48 L (4.1-5.6) M/mm3 Hgb 12.0 L (12.5-18.0) gm/dl Hct 37.0 L (42-50) % MCV 106.3 H (78-100) fl MCH 34.4 H (26-32) pg MCHC 32.4 (32-36) g/dl RDW 14.5 H (11.5-14.0) % Plt Count 166 (150-450) K/mm3 MPV 9.4 (6-9.5) fl Gran % 84.8 H (36.0-66.0) % Eos # (Auto) 0.07 (0-0.5) Absolute Lymphs (auto) 0.74 L (1.0-4.6) Absolute Monos (auto) 0.48 (0.0-1.3) Lymphocytes % 8.6 L (24.0-44.0) % Monocytes % 5.6 (0.0-12.0) % Eosinophils % 0.8 (0.00-5.0) % Basophils % 0.2 (0.0-0.4) % Absolute Granulocytes 7.33 H (1.4-6.9) Basophils # 0.02 (0-0.4) Sodium (137-145) mmol/L Potassium (3.5-5.1) mmol/L Chloride (98-107) mmol/L Carbon Dioxide (22-30) mmol/L Anion Gap (5-15) MEQ/L BUN (9-20) mg/dL Creatinine (0.66-1.25) mg/dL Estimated GFR ML/MIN Glucose (74-106) mg/dL Lactic Acid (0.4-2.0) Calcium (8.4-10.2) mg/dL Total Bilirubin (0.2-1.3) mg/dL AST (17-59) U/L ALT (0-50) U/L Alkaline Phosphatase (38-126) U/L Serum Total Protein (6.3-8.2) g/dL Albumin (3.5-5.0) g/dL Amylase (30-110) U/L Lipase (23-300) U/L Urine Color (YELLOW) Urine Appearance (CLEAR) Urine pH (5-6) Ur Specific [place] (1.005-1.025) Urine Protein (Negative) Urine Ketones (NEGATIVE) Urine Blood (0-5) Ki/ul Urine Nitrite (NEGATIVE) Urine Bilirubin (NEGATIVE) Urine Urobilinogen (0-1) mg/dL Ur Leukocyte Esterase (NEGATIVE) Urine WBC (Auto) (0-5) /HPF Urine RBC (Auto) (0-2) /HPF U Hyaline Cast (Auto) (0-2) /LPF U Epithel Cells (Auto) (FEW) /HPF Urine Bacteria (Auto) (NEGATIVE) /HPF Other Casts (Auto) (NEGATIVE) /LPF Urine Mucus (Auto) (NEGATIVE) /HPF Urine Culture Reflexed (NO) Urine Glucose (NEGATIVE) mg/dL - Progress Progress: improved, re-examined Progress Note: 04/18/19 00:07 no pain. pt murray clears well. pt now hungry. Counseled pt/family regarding: lab results, diagnosis, need for follow-up - Departure Departure Disposition: Home Clinical Impression: Nausea & vomiting Condition: Stable Critical Care Time: No Referrals: CONCEPCIÓN DELEON MD [Primary Care Provider] - Additional Instructions: drink plenty of clear liquids. monitor your blood glucose closely. take medications as prescribed Prescriptions: Ondansetron ODT 4 MG [Zofran Odt 4 mg] 4 mg PO Q6H PRN PRN #10 tab.rapdis PRN Reason: Vomiting
[2019-04-17 23:17] LABS: BASOPHIL % 0.2 % (0.0-0.4); Basophil (Absolute #) 0.02 (0-0.4); Eosinophil % 0.8 % (0.00-5.0); Eosinophil (Absolute #) 0.07 (0-0.5); Granulocyte Absolute (ANC) 7.33 (1.4-6.9); Granulocytes % 84.8 % (36.0-66.0); Lymphocyte (Absolute #) 0.74 (1.0-4.6); Lymphocytes % 8.6 % (24.0-44.0); Mean Cell Volume 106.3 fl (78-100); Mean Corpuscular Hgb Concent. 32.4 g/dl (32-36); Mean Platelet Volume 9.4 fl (6-9.5); Monocyte (Absolute #) 0.48 (0.0-1.3); Monocytes % 5.6 % (0.0-12.0); Platelet Count 166 K/mm3 (150-450); Red Blood Count 3.48 M/mm3 (4.1-5.6); Red Cell Distribution Width 14.5 % (11.5-14.0); White Blood Count 8.6 K/mm3 (4.0-10.5)
[2019-04-17 23:20] LABS: Mean Corpuscular Hemoglobin 34.4 pg (26-32)
[2019-04-17 23:27] LABS: ALBUMIN 3.7 g/dL (3.5-5.0); ANION GAP 11.6 MEQ/L (5-15); BILIRUBIN,TOTAL 0.7 mg/dL (0.2-1.3); Calcium 9.3 mg/dL (8.4-10.2); Potassium 4.1 mmol/L (3.5-5.1); Total Protein 7.3 g/dL (6.3-8.2)
[2019-04-18 00:39] LABS: Appearance CLEAR (CLEAR); Bacteria RARE /HPF (NEGATIVE); Bilirubin NEGATIVE (NEGATIVE); Blood NEGATIVE Ery/ul (0-5); Epithelial Cells RARE /HPF (FEW); Glucose NEGATIVE (NEGATIVE); Ketones NEGATIVE (NEGATIVE); Leukocyte Esterase NEGATIVE (NEGATIVE); Mucus SLIGHT /HPF (NEGATIVE); Nitrite NEGATIVE (NEGATIVE); Protein,Urine Dip NEGATIVE (Negative); RBC 0-2 /HPF (0-2); Specific Gravity 1.012 (1.005-1.025); Urobilinogen NEGATIVE mg/dL (0-1); WBC 0-2 /HPF (0-5)
[2019-04-18 00:54] VITALS: BP 131/78; PULSE 75; O2SAT 99
== END 2019-04-18 01:08 | disposition home or self-care (01) ==
LOC: ED 22:18
DX: R11.2 Nausea with vomiting, unspecified (principal); R42 Dizziness and giddiness; Z79.899 Other long term (current) drug therapy; I10 Essential (primary) hypertension; I50.9 Heart failure, unspecified; E11.9 Type 2 diabetes mellitus without complications
CPT/HCPCS: 36000; 36415; 80053; 81001; 82150; 83605; 83690; 85025; 96360; 96374; 99284; J2405

== ENCOUNTER 2019-07-09 10:58 | Emergency (ER) | payer BLACK LUNG, MEDICARE, OTHER | END 2019-07-09 15:34 | disposition home or self-care (01) | LOC: ED 10:58 ==

== ENCOUNTER 2019-11-13 12:13 | Inpatient (IN) | payer BLACK LUNG, MEDICARE, OTHER ==
[2019-11-13] MEDS ORDERED: Zithromax 500 MG/ 250 ML NaCl Premix 500 MG/250 ML IVPB IV STA (12:24)
[2019-11-13] MEDS ORDERED: DUONEB 0.5-3 MG/3 ml Neb IH ONE ×2 (12:24→12:31)
[2019-11-13 12:28] LABS: A-aADO2 562; ABG HEMOGLOBIN 10.8; ABG POTASSIUM 3.4 (3.5-5.1); ARTERIAL BLOOD GAS BASE EXCESS 10.7 (-2.0-2.0); ARTERIAL BLOOD GAS PCO2 64 mmHg (35-45); ARTERIAL BLOOD GAS PO2 71 mmHg (75-100); ARTERIAL BLOOD GAS pH 7.38 (7.35-7.45); CARBOXYHEMOGLOBIN 2.8 % THgb (0.0-6.9); HCO3- 37.9 (22-28); HGB O2 SAT 93.4 g/dF (94-100); Lactic Acid 3.5 (0.4-2.0); Methhemoglobin 0.7 % (1.4-1.5); paO2 pAO1 0.11
[2019-11-13 12:29] LABS: ABG SITE LEFT RADIAL; ALLEN TEST OK? YES; ARTERIAL BLD GAS O2 SATURATION 96.8 % (95-100); ARTERIAL BLOOD GAS FIO2 100 %
[2019-11-13] MEDS ORDERED: Sodium Chloride 0.9% 1000 ML 1,000 ML IV STA (12:32)
[2019-11-13] MEDS ORDERED: ROCEPHIN 1 Gm-D5w 50 ml Bag** 1 G/50 ML IVPB IV ONE (12:32)
[2019-11-13] MEDS ORDERED: solu-MEDROL 125 MG ONE (12:32)
[2019-11-13] MEDS ORDERED: Lasix 40 MG/4 ML ONE (12:32)
--- NOTE | 2019-11-13 12:32 | ERPHSYRPT ---
- History of Present Illness Time Seen by Provider: 11/13/19 12:15 Source: patient Exam Limitations: no limitations Physician History: known case of pneumoconiosis/interstitial lung disease. On home oxygen for last 4-5 years. Worsening shortness of breath for last 2-3 days Timing/Duration: day(s) (3) Activities at Onset: activity Severity of Dyspnea-Max: moderate Severity of Dyspnea-Current: moderate Possible Cause: frequent episodes Modifying Factors: Improves With: activity, coughing, deep breath Associated Symptoms: intermittent, cough, wheezing, hemoptysis International travel in last 2 weeks: No Allergies/Adverse Reactions: Sulfa (Sulfonamide Antibiotics) Allergy (Verified 11/29/18 15:32) Home Medications: Allopurinol 300 mg [Zyloprim 300 mg] 300 mg PO DAILY 05/06/15 [History] Aspirin 81 mg PO HS 05/06/15 [History] Duloxetine HCl 30 mg [Cymbalta 30 MG Capsule] 30 mg PO HS 05/06/15 [ History] Gabapentin 300 mg PO DAILY 05/06/15 [History] Glimepiride 8 mg PO DAILY 05/06/15 [History] Dronedarone Hydrochloride 400* [Multaq 400 MG] 200 mg PO BID 01/27/17 [ History] Apixaban [Eliquis 2.5 mg Tablet] 2.5 mg PO BID 02/10/18 [History] Ascorbic Acid [Vitamin C] 1,000 mg PO BID 02/10/18 [History] Bumetanide 1 mg [Bumex 1 mg] 1 mg PO BID 02/10/18 [History] Ergocalciferol (Vitamin D2) [Vitamin D] 50,000 unit PO WEEKLY 02/10/18 [History] Gabapentin 600 mg PO HS 02/10/18 [History] Ipratropium/Albuterol Sulfate [Combivent Inhaler] 15 gm IH Q4HPRN PRN 02/10/18 [ History] Montelukast Sodium 10 mg [Singulair 10 MG] 10 mg PO HS 02/10/18 [History] Pioglitazone 30 mg [Actos 30 MG] 30 mg PO LUNCH 02/10/18 [History] Tamsulosin HCl 0.4 mg [Flomax 0.4 MG] 0.4 mg PO DAILY 02/10/18 [History] Folic Acid 800 mg PO DAILY 02/17/18 [History] PANTOPRAZOLE 40 mg Tablet [Protonix 40MG Tablet] 40 mg PO LUNCH 02/17/18 [ History] Glucagon 1 mg [GlucaGen 1 MG] 1 mg IM STAT 03/02/18 [History] Benzonatate [Tessalon Perle] 100 mg PO UD PRN 11/29/18 [History] Calcifediol [Rayaldee] 1 cap PO DAILY 11/29/18 [History] Hydrocodone/APAP 10/325 mg [Hesston 10/325 MG Tablet] 1 tab PO Q4H PRN PRN 11/29/18 [History] Hx Tetanus, Diphtheria Vaccination/Date Given: Yes Hx Influenza Vaccination/Date Given: No Hx Pneumococcal Vaccination/Date Given: No - Review of Systems Constitutional: No Fever, No Chills Eyes: No Symptoms Ears, Nose, & Throat: No Symptoms Respiratory: Cough, Dyspnea on Exertion ([place]), Wheezing, No Dyspnea Cardiac: No Chest Pain, No Edema, No Syncope Abdominal/Gastrointestinal: No Abdominal Pain, No Nausea, No Vomiting, No Diarrhea Genitourinary Symptoms: No Dysuria Musculoskeletal: No Back Pain, No Neck Pain Skin: No Rash Neurological: No Dizziness, No Focal Weakness, No Sensory Changes Psychological: No Symptoms Endocrine: No Symptoms All Other Systems: Reviewed and Negative - Past Medical History Pertinent Past Medical History: Yes Neurological History: Stroke ENT History: Cataracts Cardiac History: Arrhythmia, Congestive Heart Failure, Hypertension Respiratory History: CHF, Pneumonia, Other Endocrine Medical History: Diabetes Type II Musculoskeletal History: Degenerative Disk Disease GI Medical History: No Pertinent History History: Renal Disease Psycho-Social History: No Pertinent History Male Reproductive Disorders: No Pertinent History Other Medical History: BACK SURGERY X 2012 HIP STABILIZATION, CATARACT 2000 AND 2009,black lung,lt total hip replaced, PULMONARY EDEMA AND HTN, HOME O2, ANEMIA, HYPERKALEMIA - Past Surgical History Past Surgical History: Yes Neuro Surgical History: No Pertinent History Cardiac: Cardiac Catheterization Respiratory: No Pertinent History Gastrointestinal: No Pertinent History Genitourinary: No Pertinent History Musculoskeletal: Joint Replacement, Orthopedic Surgery, Other Male Surgical History: No Pertinent History Other Surgical History: BACK, rt shoulder,rt foot great toe, - Social History Smoking Status: Never smoker Exposure to second hand smoke: No Drug Use: none Patient Lives Alone: No - Nursing Vital Signs Nursing Vital Signs: Initial Vital Signs Temperature 97.5 F 11/13/19 12:19 Pulse Rate 86 11/13/19 12:19 Respiratory Rate 26 H 11/13/19 12:19 Blood Pressure 153/78 11/13/19 12:19 O2 Sat by Pulse Oximetry 75 L 11/13/19 12:19 Pain Scale Pain Intensity 4 - Physical Exam General Appearance: no apparent distress, alert Eye Exam: PERRL/EOMI Neck Exam: normal inspection, supple Respiratory Exam: respiratory distress, airway intact, accessory muscle use, prolonged expirations, rhonchi, wheezing Cardiovascular/Chest Exam: normal heart sounds, regular rate/rhythm, tachycardia Abdominal/Gastrointestinal Exam: soft, No tenderness, No distention, No mass Extremity Exam: non-tender, normal range of motion, normal inspection, no calf tenderness, no pedal edema Neurologic Exam: alert, oriented x 3, cooperative, travel coordinator II-XII nml as tested, sensation nml, No motor deficits Skin Exam: normal color, warm, No dry Lymphatic Exam: No adenopathy SpO2 Interpretation: hypoxic O2 Delivery: Nasal Cannula Ordered Tests: Active Orders 24 hr Category Date Time Status Obstetrical Nurse STAT Care 11/13/19 12:24 Active IV Insertion STAT Care 11/13/19 12:24 Active Oxygen-ED Only NON-REBREATHER 100% Care 11/13/19 12:24 Active CHEST 1 VIEW (PORTABLE) Stat Exams 11/13/19 12:24 Completed ARTERIAL BLOOD GASES Stat Lab 11/13/19 12:23 Results BLOOD CULTURE Stat Lab 11/13/19 12:23 Ordered BNP [NT PRO BNP] Stat Lab 11/13/19 12:25 Ordered CBC W DIFF Stat Lab 11/13/19 12:23 Ordered CMP Stat Lab 11/13/19 12:23 Ordered Lactic Acid Stat Lab 11/13/19 12:23 Results TROPONIN Q3H Lab 11/13/19 12:30 Ordered TROPONIN Q3H Lab 11/13/19 15:30 Ordered TROPONIN Q3H Lab 11/13/19 18:30 Ordered TROPONIN Q3H Lab 11/13/19 21:30 Ordered Respiratory Therapy Assessment DAILY RT 11/13/19 12:36 Active Medication Summary Generic Name Dose Route Start Last Admin Trade Name Freq PRN Reason Stop Dose Admin Furosemide 20 mg 11/14/19 12:27 Lasix 20 Mg/2 Ml IV 11/14/19 12:28 STAT ONE Discontinued Medications Generic Name Dose Route Start Last Admin Trade Name Freq PRN Reason Stop Dose Admin Albuterol/Ipratropium 3 ml 11/13/19 12:24 11/13/19 12:33 Duoneb 0.5-3 Mg/3 Ml Neb IH 11/13/19 12:25 3 ml STAT ONE Administration Albuterol/Ipratropium Confirm 11/13/19 12:31 Duoneb 0.5-3 Mg/3 Ml Neb Administered 11/13/19 12:32 Dose 3 ml IH .STK-MED ONE Azithromycin 500 mg 11/13/19 13:38 Zithromax 250 Mg Tablet PO 11/13/19 13:39 STAT ONE Ceftriaxone Sodium 1,000 mg 11/13/19 13:38 Rocephin 1000 Mg Inj IM 11/13/19 13:39 STAT ONE Furosemide Confirm 11/13/19 12:32 Lasix 40 Mg/4 Ml Administered 11/13/19 12:33 Dose 40 mg .ROUTE .STK-MED ONE Ceftriaxone Sodium/Dextrose 1 g in 50 mls @ 100 mls/hr 11/13/19 12:24 12:34 Rocephin 1 Gm-D5w 50 Ml Bag IV 11/13/19 12:53 100 mls/hr STAT STA 100 mls/hr Administration Azithromycin 500 mg in 250 mls @ 250 mls/hr 11/13/19 12:24 Zithromax 500 Mg/ 250 Ml Nacl Premix IV 11/13/19 13:23 STAT STA Sodium Chloride 1,000 mls @ 999 mls/hr 11/13/19 12:32 Sodium Chloride 0.9% 1000 Ml IV 11/13/19 13:32 .Q1H1M STA Ceftriaxone Sodium/Dextrose Confirm 11/13/19 12:32 Rocephin 1 Gm-D5w 50 Ml Bag Administered 11/13/19 12:33 Dose 1 g in 50 mls @ ud IV .STK-MED ONE Sodium Chloride Confirm 11/13/19 12:39 Sodium Chloride 0.9% 1000 Ml Administered 11/13/19 12:40 Dose 1,000 mls @ ud .ROUTE .STK-MED ONE Methylprednisolone Sodium Succinate 125 mg 11/13/19 12:25 11/13/19 12:33 Solu-Medrol 125 Mg IV 11/13/19 12:26 125 mg STAT ONE Administration Methylprednisolone Sodium Succinate Confirm 11/13/19 12:32 Solu-Medrol 125 Mg Administered 11/13/19 12:33 Dose 125 mg .ROUTE .STK-MED ONE Lab/Rad Data: Laboratory Results 11/13/19 11/13/19 Range/Units Unknown 12:23 Puncture Site LEFT RADIAL pCO2 64 H* (35-45) mmHg pO2 71 L (75-100) mmHg Base Excess 10.7 H (-2.0-2.0) O2 Saturation 93.4 L (94-100) g/dF ABG pH 7.38 (7.35-7.45) ABG HCO3 37.9 H* (22-28) ABG O2 Sat (Measured) 96.8 (95-100) % Félix Test YES A-a Gradient 562 a/A Ratio 0.11 Hemoglobin 10.8 Carboxyhemoglobin 2.8 (0.0-6.9) % THgb Methemoglobin 0.7 L (1.4-1.5) % Potassium 3.4 L (3.5-5.1) Temperature 37.0 C POC O2 Flow Rate 100 % Lactic Acid 3.5 H (0.4-2.0) Influenza Type A Ag NEGATIVE (NEGATIVE) Influenza Type B Ag NEGATIVE (NEGATIVE) RSV (PCR) NEGATIVE (Negative) - Progress Progress: unchanged Air Movement: fair Progress Note: 11/13/19 13:39 numerous IV access attempted IN multiple people failed 11/13/19 13:45 I discussed the situation with Dr. deleon. He agreed to admit the patient. The playground beneficial to the central line. The meanwhile we will give patient Rocephin IM and Zithromax by mouth. Discussed with : Nat Will see patient in: hospital (full admit) Counseled pt/family regarding: diagnosis - Departure Departure Disposition: In-patient Admission Clinical Impression: Interstitial lung disease Pneumonia Qualifiers: Pneumonia type: due to unspecified organism Laterality: bilateral Lung location : unspecified part of lung Qualified Code(s): J18.9 - Pneumonia, unspecified organism Chronic obstructive pulmonary disease Qualifiers: COPD type: COPD with acute lower respiratory infection Qualified Code(s): J44.0 - Chronic obstructive pulmonary disease with (acute) lower respiratory infection Condition: Fair Critical Care Time: Yes Critical Care Time(excluding separately billable procedures): Critical 30-74 mins Referrals: CONCEPCIÓN DELEON MD [Primary Care Provider] - Instructions: Chronic Obstructive Pulmonary Disease, Pneumonia, Adult (DC)
[2019-11-13] MEDS: solu-MEDROL 125 MG IV ONE ×2 (12:33→18:03)
[2019-11-13] MEDS: ROCEPHIN 1 Gm-D5w 50 ml Bag** 1 G/50 ML IVPB IV STA ×2 (12:34→18:02)
[2019-11-13] MEDS ORDERED: Sodium Chloride 0.9% 1000 ML 1,000 ML ONE (12:39)
--- NOTE | 2019-11-13 12:41 | XRAY ---
Indication: Short of breath and dyspnea. Comparison: February 17, 2018. Portable chest demonstrates new diffuse bilateral airspace disease and small bilateral effusions. Stable cardiomegaly, osteopenia, and bony degenerative changes.
[2019-11-13] MEDS ORDERED: Rocephin 1000 MG INJ IM ONE (13:38)
[2019-11-13] MEDS ORDERED: Zithromax 250 MG TABLET PO ONE (13:38)
[2019-11-13 13:40] LABS: INFLUENZA A NEGATIVE (NEGATIVE); INFLUENZA B NEGATIVE (NEGATIVE); RESPIRATORY SYNCTIAL VIRUS NEGATIVE (Negative)
[2019-11-13] MEDS ORDERED: XYLOCAINE 1% HCL 20 ML MDV ONE (14:06)
[2019-11-13] MEDS ORDERED: Zithromax 250 MG TABLET ONE (14:06)
[2019-11-13] MEDS ORDERED: Rocephin 1000 MG INJ ONE (14:06)
[2019-11-13 17:55] LABS: Absolute Neutrophil Ct (ANC) 7.09 (1.4-6.9); BASOPHIL % 0.2 % (0.0-0.4); Basophil (Absolute #) 0.02 (0-0.4); Eosinophil % 0.7 % (0.00-5.0); Eosinophil (Absolute #) 0.06 (0-0.5); Hematocrit 28.2 % (42-50); Hemoglobin 8.7 gm/dl (12.5-18.0); Lymphocyte (Absolute #) 0.43 (1.0-4.6); Lymphocytes % 5.3 % (24.0-44.0); Mean Cell Volume 108.9 fl (78-100); Mean Corpuscular Hemoglobin 33.6 pg (26-32); Mean Corpuscular Hgb Concent. 30.9 g/dl (32-36); Mean Platelet Volume 9.4 fl (6-9.5); Monocyte (Absolute #) 0.51 (0.0-1.3); Monocytes % 6.3 % (0.0-12.0); Neutrophil % 87.5 % (36.0-66.0); Platelet Count 124 K/mm3 (150-450); Red Blood Count 2.59 M/mm3 (4.1-5.6); Red Cell Distribution Width 14.2 % (11.5-14.0); White Blood Count 8.1 K/mm3 (4.0-10.5)
[2019-11-13 18:15] LABS: ALBUMIN 2.9 g/dL (3.5-5.0); BILIRUBIN,TOTAL 0.6 mg/dL (0.2-1.3); Calcium 8.4 mg/dL (8.4-10.2); Creatinine 1 1.62 mg/dL (0.66-1.25); Potassium 3.9 mmol/L (3.5-5.1); Total Protein 6.5 g/dL (6.3-8.2)
[2019-11-13 18:32] LABS: ANION GAP 6.9 MEQ/L (5-15)
[2019-11-13 18:50] LABS: Appearance CLEAR (CLEAR); Bilirubin NEGATIVE (NEGATIVE); Blood SMALL Ery/ul (0-5); Glucose NEGATIVE (NEGATIVE); Ketones NEGATIVE (NEGATIVE); Leukocyte Esterase NEGATIVE (NEGATIVE); Nitrite NEGATIVE (NEGATIVE); Protein,Urine Dip NEGATIVE (Negative); Urobilinogen NEGATIVE mg/dL (0-1); WBC 0-2 /HPF (0-5)
[2019-11-13] MEDS ORDERED: ELIQUIS 2.5 MG TABLET PO ONE (22:00)
[2019-11-13] MEDS ORDERED: Vitamin C 500 MG PO ONE (22:00)
[2019-11-13] MEDS ORDERED: Norco 10/325 MG Tablet PO PRN (23:37)
[2019-11-14] MEDS ORDERED: BUMEX 1 MG ONE (00:16)
[2019-11-14] MEDS: Multaq 400 MG PO SCH ×3 (00:23→22:24)
[2019-11-14] MEDS: Cymbalta 30 MG Capsule PO SCH ×2 (00:23→22:25)
[2019-11-14] MEDS: ECOTRIN 81 MG PO SCH ×2 (00:24→22:25)
[2019-11-14] MEDS: FEOSOL 325 MG PO SCH ×4 (00:24→22:25)
[2019-11-14] MEDS: Singulair 10 MG PO SCH ×2 (00:25→22:25)
[2019-11-14] MEDS: NEURONTIN 300 MG PO SCH ×3 (00:25→22:25)
[2019-11-14 03:25] LABS: Slide Review 1 YES
[2019-11-14] MEDS ORDERED: ZOFRAN ODT 4 MG PO PRN (07:52)
[2019-11-14] MEDS ORDERED: NON-FORMULARY ITEM (Ipratropium/Albuterol Sulfate [Combivent Inhaler] 15 GM) IH PRN (07:52)
[2019-11-14] MEDS ORDERED: Tessalon Perles 100 MG PO PRN (07:52)
[2019-11-14] MEDS ORDERED: GlucaGen 1 MG IM PRN (08:00)
[2019-11-14] MEDS ORDERED: MEDICATION INTERVENTION MC SCH (08:15)
[2019-11-14 08:16] LABS: Absolute Neutrophil Ct (ANC) 5.67 (1.4-6.9); BASOPHIL % 0.2 % (0.0-0.4); Basophil (Absolute #) 0.01 (0-0.4); Eosinophil % 0.2 % (0.00-5.0); Eosinophil (Absolute #) 0.01 (0-0.5); Hematocrit 29.5 % (42-50); Lymphocytes % 4.9 % (24.0-44.0); Mean Cell Volume 107.7 fl (78-100); Mean Corpuscular Hemoglobin 32.8 pg (26-32); Mean Corpuscular Hgb Concent. 30.5 g/dl (32-36); Mean Platelet Volume 9.4 fl (6-9.5); Monocyte (Absolute #) 0.12 (0.0-1.3); Neutrophil % 92.7 % (36.0-66.0); Platelet Count 120 K/mm3 (150-450); Red Blood Count 2.74 M/mm3 (4.1-5.6); Red Cell Distribution Width 13.7 % (11.5-14.0); White Blood Count 6.1 K/mm3 (4.0-10.5)
[2019-11-14 08:40] LABS: Calcium 8.7 mg/dL (8.4-10.2); Creatinine 1 1.6 mg/dL (0.66-1.25)
--- NOTE | 2019-11-14 08:45 | XRAY ---
Indication: Line placement. Comparison: Taken earlier today. Limited portable chest demonstrates new right IJ central venous access catheter with tip projecting over the SVC and no pneumothorax. Stable cardiomegaly and diffuse bilateral airspace opacities.
--- NOTE | 2019-11-14 09:07 | PCM.HP ---
History of Present Illness - Chief Complaint Chief Complaint: c/o cough and shortness of breath for 2-3 days History of Present Illness: is a 79 year old male.known case of pneumoconiosis/interstitial lung disease. On home oxygen for last 4-5 years. Worsening shortness of breath for last 2-3 days Timing/Duration: day(s) (3) Activities at Onset: activity Severity of Dyspnea-Max: moderate Severity of Dyspnea-Current: moderate Possible Cause: frequent episodes Modifying Factors: Improves With: activity, coughing, deep breath Associated Symptoms: intermittent, cough, wheezing, hemoptysis International travel in last 2 weeks: No - Review of Systems Constitutional: No Fever, No Chills Eyes: No Symptoms Ears, Nose, & Throat: No Symptoms Respiratory: No Cough, No Short Of Breath Cardiac: No Chest Pain, No Edema, No Syncope Abdominal/Gastrointestinal: No Abdominal Pain, No Nausea, No Vomiting, No Diarrhea Genitourinary Symptoms: No Dysuria Musculoskeletal: No Back Pain, No Neck Pain Skin: No Rash Neurological: No Dizziness, No Focal Weakness, No Sensory Changes Psychological: No Symptoms Endocrine: No Symptoms Hematologic/Lymphatic: No Symptoms Immunological/Allergic: No Symptoms Medications & Allergies Home Medications: Home Medication List Allopurinol 300 mg [Zyloprim 300 mg] 300 mg PO DAILY 05/06/15 [History Confirmed 11/13/19] Aspirin 81 mg PO HS 05/06/15 [History Confirmed 11/13/19] Duloxetine HCl 30 mg [Cymbalta 30 MG Capsule] 30 mg PO HS 05/06/15 [ History Confirmed 11/13/19] Gabapentin 300 mg PO DAILY 05/06/15 [History Confirmed 11/13/19] Glimepiride 8 mg PO DAILY 05/06/15 [History Confirmed 11/13/19] Dronedarone Hydrochloride 400* [Multaq 400 MG] 200 mg PO BID 01/27/17 [ History Confirmed 11/13/19] Apixaban [Eliquis 2.5 mg Tablet] 2.5 mg PO BID 02/10/18 [History Confirmed ] Ascorbic Acid [Vitamin C] 1,000 mg PO BID 02/10/18 [History Confirmed 11/13/19] Bumetanide 1 mg [Bumex 1 mg] 1 mg PO BID 02/10/18 [History Confirmed 11/13] Ergocalciferol (Vitamin D2) [Vitamin D] 50,000 unit PO WEEKLY 02/10/18 [History Confirmed 11/13/19] Gabapentin 600 mg PO HS 02/10/18 [History Confirmed 11/13/19] Ipratropium/Albuterol Sulfate [Combivent Inhaler] 15 gm IH Q4HPRN PRN 02/10/18 [ History Confirmed 11/13/19] Montelukast Sodium 10 mg [Singulair 10 MG] 10 mg PO HS 02/10/18 [History Confirmed 11/13/19] Pioglitazone 30 mg [Actos 30 MG] 30 mg PO LUNCH 02/10/18 [History Confirmed 11/13/19] Tamsulosin HCl 0.4 mg [Flomax 0.4 MG] 0.4 mg PO DAILY 02/10/18 [History Confirmed 11/13/19] Folic Acid 800 mg PO DAILY 02/17/18 [History Confirmed 11/13/19] PANTOPRAZOLE 40 mg Tablet [Protonix 40MG Tablet] 40 mg PO LUNCH 02/17/18 [ History Confirmed 11/13/19] Ferrous Fumarate 324 mg PO TID #90 tablet 02/21/18 [Rx Confirmed 11/13/19] Glucagon 1 mg [GlucaGen 1 MG] 1 mg IM STAT 03/02/18 [History Confirmed ] Benzonatate [Tessalon Perle] 100 mg PO UD PRN 11/29/18 [History Confirmed ] Calcifediol [Rayaldee] 1 cap PO DAILY 11/29/18 [History Confirmed 11/13/19] Hydrocodone/APAP 10/325 mg [[place] 10/325 MG Tablet] 1 tab PO Q4H PRN PRN 11/29/18 [History Confirmed 11/13/19] Ondansetron ODT 4 MG [Zofran Odt 4 mg] 4 mg PO Q6H PRN PRN #10 tab.rapdis 04/18/19 [Rx Confirmed 11/13/19] Allergies/Adverse Reactions: Allergies Allergy/AdvReac Type Severity Reaction Status Date / Time Sulfa (Sulfonamide Allergy Verified 11/29/18 15:32 Antibiotics) - Past Medical History Past Medical History: Yes Neurological History: Stroke ENT History: Cataracts Cardiac History: Arrhythmia, Congestive Heart Failure, Hypertension Respiratory History: CHF, Pneumonia, Other Endocrine Medical History: Diabetes Type II Musculoskelatal History: Degenerative Disk Disease GI Medical History: No Pertinent History History: Renal Disease Pyscho-Social History: No Pertinent History Male Reproductive Disorders: No Pertinent History Comment: BACK SURGERY X , 2012 HIP STABILIZATION, CATARACT 2000 AND 2009,black lung,lt total hip replaced, PULMONARY EDEMA AND HTN, HOME O2, ANEMIA, HYPERKALEMIA - Past Surgical History Past Surgical History: Yes Neuro Surgical History: No Pertinent History Cardiac History: Cardiac Catheterization Respiratory Surgery: No Pertinent History GI Surgical History: No Pertinent History Genitourinary Surgical Hx: No Pertinent History Musculskeletal Surgical Hx: Joint Replacement, Orthopedic Surgery, Other Male Surgical History: No Pertinent History Other Surgical History: BACK, rt shoulder,rt foot great toe, - Social History Smoking Status: Former smoker Exposure to second hand smoke: No Alcohol: Occasionally Drug Use: none - Physical Exam Vital Signs: Vital Signs - 24 hr Temp Pulse Resp BP Pulse Ox 11/14/19 05:00 98.4 F 96 H 26 H 149/93 93 L 11/14/19 04:00 95 H 11/14/19 01:00 98.3 F 91 H 18 168/103 95 11/14/19 00:01 91 H 11/13/19 21:56 98 11/13/19 21:17 98.4 F 94 H 16 143/76 95 11/13/19 20:07 98.4 F 94 H 16 143/76 95 11/13/19 20:00 98.4 F 94 H 16 143/76 95 11/13/19 18:59 93 H 20 125/78 99 11/13/19 18:10 82 20 128/68 98 11/13/19 17:30 88 18 122/70 100 11/13/19 16:28 86 18 108/65 98 11/13/19 15:30 98.0 F 80 18 98 11/13/19 12:36 88 28 H 97 11/13/19 12:19 97.5 F 86 28 H 153/78 98 Oxygen-Last 24 hours O2 Percentage 6 Liters = 44% O2 Percentage 6 Liters = 44% O2 Percentage 50% O2 Percentage 50% O2 Percentage 50% O2 Percentage 50% O2 Percentage 50% O2 Percentage 100% O2 Percentage 100% O2 Percentage 4 Liters = 36% Oxygen Flowrate (L/min)-RT 7 General Appearance: no apparent distress, alert Neurologic Exam: alert, oriented x 3, cooperative, normal mood/affect, nml cerebellar function, nml station & gait, sensation nml, No motor deficits Eye Exam: PERRL/EOMI, eyes nml inspection Ears, Nose, Throat Exam: normal ENT inspection, TMs normal, pharynx normal, moist mucous membranes Neck Exam: normal inspection, non-tender, supple, full range of motion Respiratory Exam: crackles/rales, rhonchi, wheezing, No respiratory distress Cardiovascular Exam: regular rate/rhythm, normal heart sounds, normal peripheral pulses Gastrointestinal/Abdomen Exam: soft, normal bowel sounds, No tenderness, No mass Back Exam: normal inspection, normal range of motion, No CVA tenderness, No vertebral tenderness Extremity Exam: normal inspection, normal range of motion, pelvis stable Skin Exam: normal color, warm, dry, No rash Lymphatic Exam: No adenopathy Results - Labs Lab/Micro Results: Lab Results-Last 24 Hours 11/13/19 11/13/19 11/13/19 Range/Units 12:23 17:45 17:45 WBC 8.1 (4.0-10.5) K/mm3 RBC 2.59 L (4.1-5.6) M/mm3 Hgb 8.7 L (12.5-18.0) gm/dl Hct 28.2 L (42-50) % MCV 108.9 H (78-100) fl MCH 33.6 H (26-32) pg MCHC 30.9 L (32-36) g/dl RDW 14.2 H (11.5-14.0) % Plt Count 124 L (150-450) K/mm3 MPV 9.4 (6-9.5) fl Gran % 87.5 H (36.0-66.0) % Eos # (Auto) 0.06 (0-0.5) Absolute Lymphs (auto) 0.43 L (1.0-4.6) Absolute Monos (auto) 0.51 (0.0-1.3) Lymphocytes % 5.3 L (24.0-44.0) % Monocytes % 6.3 (0.0-12.0) % Eosinophils % 0.7 (0.00-5.0) % Basophils % 0.2 (0.0-0.4) % Absolute Granulocytes 7.09 H (1.4-6.9) Basophils # 0.02 (0-0.4) Puncture Site LEFT RADIAL pCO2 64 H* (35-45) mmHg pO2 71 L (75-100) mmHg Base Excess 10.7 H (-2.0-2.0) O2 Saturation 93.4 L (94-100) g/dF ABG pH 7.38 (7.35-7.45) ABG HCO3 37.9 H* (22-28) ABG O2 Sat (Measured) 96.8 (95-100) % Félix Test YES A-a Gradient 562 a/A Ratio 0.11 Hemoglobin 10.8 Carboxyhemoglobin 2.8 (0.0-6.9) % THgb Methemoglobin 0.7 L (1.4-1.5) % Potassium 3.4 L 3.9 (3.5-5.1) Temperature 37.0 C POC O2 Flow Rate 100 % Sodium 139 (137-145) mmol/L Chloride 96 L (98-107) mmol/L Carbon Dioxide 40 H (22-30) mmol/L Anion Gap 6.9 (5-15) MEQ/L BUN 26 H (9-20) mg/dL Creatinine 1.62 H (0.66-1.25) mg/dL Estimated GFR 44.0 ML/MIN Glucose 219 H (74-106) mg/dL Lactic Acid 3.5 H (0.4-2.0) Calcium 8.4 (8.4-10.2) mg/dL Total Bilirubin 0.60 (0.2-1.3) mg/dL AST 13 L (17-59) U/L ALT 8 (0-50) U/L Alkaline Phosphatase 75 (38-126) U/L Troponin I (0.000-0.034) ng/mL NT-Pro-B Natriuret Pep 4610 H (0-1800) pg/mL Serum Total Protein 6.5 (6.3-8.2) g/dL Albumin 2.9 L (3.5-5.0) g/dL Urine Color (YELLOW) Urine Appearance (CLEAR) Urine pH (5-6) Ur Specific [place] (1.005-1.025) Urine Protein (Negative) Urine Ketones (NEGATIVE) Urine Blood (0-5) Ki/ul Urine Nitrite (NEGATIVE) Urine Bilirubin (NEGATIVE) Urine Urobilinogen (0-1) mg/dL Ur Leukocyte Esterase (NEGATIVE) Urine WBC (Auto) (0-5) /HPF Urine RBC (Auto) (0-2) /HPF U Epithel Cells (Auto) (FEW) /HPF Urine Bacteria (Auto) (NEGATIVE) /HPF Urine Culture Reflexed (NO) Urine Glucose (NEGATIVE) mg/dL Stool Occult Bld Scrn (NEGATIVE) Influenza Type A Ag (NEGATIVE) Influenza Type B Ag (NEGATIVE) RSV (PCR) (Negative) Slides for Path Review YES 11/13/19 11/13/19 11/13/19 Range/Units 17:45 17:46 18:42 WBC (4.0-10.5) K/mm3 RBC (4.1-5.6) M/mm3 Hgb (12.5-18.0) gm/dl Hct (42-50) % MCV (78-100) fl MCH (26-32) pg MCHC (32-36) g/dl RDW (11.5-14.0) % Plt Count (150-450) K/mm3 MPV (6-9.5) fl Gran % (36.0-66.0) % Eos # (Auto) (0-0.5) Absolute Lymphs (auto) (1.0-4.6) Absolute Monos (auto) (0.0-1.3) Lymphocytes % (24.0-44.0) % Monocytes % (0.0-12.0) % Eosinophils % (0.00-5.0) % Basophils % (0.0-0.4) % Absolute Granulocytes (1.4-6.9) Basophils # (0-0.4) Puncture Site pCO2 (35-45) mmHg pO2 (75-100) mmHg Base Excess (-2.0-2.0) O2 Saturation (94-100) g/dF ABG pH (7.35-7.45) ABG HCO3 (22-28) ABG O2 Sat (Measured) (95-100) % Félix Test A-a Gradient a/A Ratio Hemoglobin Carboxyhemoglobin (0.0-6.9) % THgb Methemoglobin (1.4-1.5) % Potassium (3.5-5.1) Temperature C POC O2 Flow Rate % Sodium (137-145) mmol/L Chloride (98-107) mmol/L Carbon Dioxide (22-30) mmol/L Anion Gap (5-15) MEQ/L BUN (9-20) mg/dL Creatinine (0.66-1.25) mg/dL Estimated GFR ML/MIN Glucose (74-106) mg/dL Lactic Acid 0.6 (0.4-2.0) Calcium (8.4-10.2) mg/dL Total Bilirubin (0.2-1.3) mg/dL AST (17-59) U/L ALT (0-50) U/L Alkaline Phosphatase (38-126) U/L Troponin I < 0.012 (0.000-0.034) ng/mL NT-Pro-B Natriuret Pep (0-1800) pg/mL Serum Total Protein (6.3-8.2) g/dL Albumin (3.5-5.0) g/dL Urine Color YELLOW (YELLOW) Urine Appearance CLEAR (CLEAR) Urine pH 5.0 (5-6) Ur Specific [place] 1.010 (1.005-1.025) Urine Protein NEGATIVE (Negative) Urine Ketones NEGATIVE (NEGATIVE) Urine Blood SMALL (0-5) Ki/ul Urine Nitrite NEGATIVE (NEGATIVE) Urine Bilirubin NEGATIVE (NEGATIVE) Urine Urobilinogen NEGATIVE (0-1) mg/dL Ur Leukocyte Esterase NEGATIVE (NEGATIVE) Urine WBC (Auto) 0-2 (0-5) /HPF Urine RBC (Auto) NONE (0-2) /HPF U Epithel Cells (Auto) NONE (FEW) /HPF Urine Bacteria (Auto) NONE (NEGATIVE) /HPF Urine Culture Reflexed ORDERED SEPARATELY (NO) Urine Glucose NEGATIVE (NEGATIVE) mg/dL Stool Occult Bld Scrn (NEGATIVE) Influenza Type A Ag (NEGATIVE) Influenza Type B Ag (NEGATIVE) RSV (PCR) (Negative) Slides for Path Review 12/30/19 12/30/19 12/30/19 Range/Units 19:33 21:15 Unknown WBC (4.0-10.5) K/mm3 RBC (4.1-5.6) M/mm3 Hgb (12.5-18.0) gm/dl Hct (42-50) % MCV (78-100) fl MCH (26-32) pg MCHC (32-36) g/dl RDW (11.5-14.0) % Plt Count (150-450) K/mm3 MPV (6-9.5) fl Gran % (36.0-66.0) % Eos # (Auto) (0-0.5) Absolute Lymphs (auto) (1.0-4.6) Absolute Monos (auto) (0.0-1.3) Lymphocytes % (24.0-44.0) % Monocytes % (0.0-12.0) % Eosinophils % (0.00-5.0) % Basophils % (0.0-0.4) % Absolute Granulocytes (1.4-6.9) Basophils # (0-0.4) Puncture Site pCO2 (35-45) mmHg pO2 (75-100) mmHg Base Excess (-2.0-2.0) O2 Saturation (94-100) g/dF ABG pH (7.35-7.45) ABG HCO3 (22-28) ABG O2 Sat (Measured) (95-100) % Félix Test A-a Gradient a/A Ratio Hemoglobin Carboxyhemoglobin (0.0-6.9) % THgb Methemoglobin (1.4-1.5) % Potassium (3.5-5.1) Temperature C POC O2 Flow Rate % Sodium (137-145) mmol/L Chloride (98-107) mmol/L Carbon Dioxide (22-30) mmol/L Anion Gap (5-15) MEQ/L BUN (9-20) mg/dL Creatinine (0.66-1.25) mg/dL Estimated GFR ML/MIN Glucose (74-106) mg/dL Lactic Acid (0.4-2.0) Calcium (8.4-10.2) mg/dL Total Bilirubin (0.2-1.3) mg/dL AST (17-59) U/L ALT (0-50) U/L Alkaline Phosphatase (38-126) U/L Troponin I < 0.012 (0.000-0.034) ng/mL NT-Pro-B Natriuret Pep (0-1800) pg/mL Serum Total Protein (6.3-8.2) g/dL Albumin (3.5-5.0) g/dL Urine Color (YELLOW) Urine Appearance (CLEAR) Urine pH (5-6) Ur Specific [place] (1.005-1.025) Urine Protein (Negative) Urine Ketones (NEGATIVE) Urine Blood (0-5) Ki/ul Urine Nitrite (NEGATIVE) Urine Bilirubin (NEGATIVE) Urine Urobilinogen (0-1) mg/dL Ur Leukocyte Esterase (NEGATIVE) Urine WBC (Auto) (0-5) /HPF Urine RBC (Auto) (0-2) /HPF U Epithel Cells (Auto) (FEW) /HPF Urine Bacteria (Auto) (NEGATIVE) /HPF Urine Culture Reflexed (NO) Urine Glucose (NEGATIVE) mg/dL Stool Occult Bld Scrn NEGATIVE (NEGATIVE) Influenza Type A Ag NEGATIVE (NEGATIVE) Influenza Type B Ag NEGATIVE (NEGATIVE) RSV (PCR) NEGATIVE (Negative) Slides for Path Review 11/14/19 11/14/19 Range/Units 08:00 08:00 WBC 6.1 (4.0-10.5) K/mm3 RBC 2.74 L (4.1-5.6) M/mm3 Hgb 9.0 L (12.5-18.0) gm/dl Hct 29.5 L (42-50) % MCV 107.7 H (78-100) fl MCH 32.8 H (26-32) pg MCHC 30.5 L (32-36) g/dl RDW 13.7 (11.5-14.0) % Plt Count 120 L (150-450) K/mm3 MPV 9.4 (6-9.5) fl Gran % 92.7 H (36.0-66.0) % Eos # (Auto) 0.01 (0-0.5) Absolute Lymphs (auto) 0.30 L (1.0-4.6) Absolute Monos (auto) 0.12 (0.0-1.3) Lymphocytes % 4.9 L (24.0-44.0) % Monocytes % 2.0 (0.0-12.0) % Eosinophils % 0.2 (0.00-5.0) % Basophils % 0.2 (0.0-0.4) % Absolute Granulocytes 5.67 (1.4-6.9) Basophils # 0.01 (0-0.4) Puncture Site pCO2 (35-45) mmHg pO2 (75-100) mmHg Base Excess (-2.0-2.0) O2 Saturation (94-100) g/dF ABG pH (7.35-7.45) ABG HCO3 (22-28) ABG O2 Sat (Measured) (95-100) % Félix Test A-a Gradient a/A Ratio Hemoglobin Carboxyhemoglobin (0.0-6.9) % THgb Methemoglobin (1.4-1.5) % Potassium 4.0 (3.5-5.1) Temperature C POC O2 Flow Rate % Sodium 139 (137-145) mmol/L Chloride 97 L (98-107) mmol/L Carbon Dioxide 40 H (22-30) mmol/L Anion Gap 6.0 (5-15) MEQ/L BUN 29 H (9-20) mg/dL Creatinine 1.60 H (0.66-1.25) mg/dL Estimated GFR 44.7 ML/MIN Glucose 322 H (74-106) mg/dL Lactic Acid (0.4-2.0) Calcium 8.7 (8.4-10.2) mg/dL Total Bilirubin (0.2-1.3) mg/dL AST (17-59) U/L ALT (0-50) U/L Alkaline Phosphatase (38-126) U/L Troponin I (0.000-0.034) ng/mL NT-Pro-B Natriuret Pep (0-1800) pg/mL Serum Total Protein (6.3-8.2) g/dL Albumin (3.5-5.0) g/dL Urine Color (YELLOW) Urine Appearance (CLEAR) Urine pH (5-6) Ur Specific [place] (1.005-1.025) Urine Protein (Negative) Urine Ketones (NEGATIVE) Urine Blood (0-5) Ki/ul Urine Nitrite (NEGATIVE) Urine Bilirubin (NEGATIVE) Urine Urobilinogen (0-1) mg/dL Ur Leukocyte Esterase (NEGATIVE) Urine WBC (Auto) (0-5) /HPF Urine RBC (Auto) (0-2) /HPF U Epithel Cells (Auto) (FEW) /HPF Urine Bacteria (Auto) (NEGATIVE) /HPF Urine Culture Reflexed (NO) Urine Glucose (NEGATIVE) mg/dL Stool Occult Bld Scrn (NEGATIVE) Influenza Type A Ag (NEGATIVE) Influenza Type B Ag (NEGATIVE) RSV (PCR) (Negative) Slides for Path Review - Radiology Impressions Radiology Exams & Impressions: Radiology Procedures Category Date Time Status CHEST 1 VIEW (PORTABLE) Stat Exams 11/13/19 12:24 Completed CHEST 1 VIEW (PORTABLE) Stat Exams 11/13/19 17:38 Completed - Other Procedures and Tests Respiratory Therapy 11/13/19 12:36 Respiratory Therapy Assessment DAILY 11/13/19 20:00 Oxygen Non-rebreather 15% Assessment/Plan (1) Pneumonia Current Visit: Yes Status: Acute Qualifiers: Pneumonia type: due to unspecified organism Laterality: bilateral Lung location: unspecified part of lung Qualified Code(s): J18.9 - Pneumonia, unspecified organism Assessment & Plan: Last Vital Signs Temp 98.4 F 11/14/19 05:00 Pulse 96 H 11/14/19 05:00 Resp 26 H 11/14/19 05:00 BP 149/93 11/14/19 05:00 Pulse Ox 93 L 11/14/19 05:00 Allergies Sulfa (Sulfonamide Antibiotics) Allergy (Verified 11/29/18 15:32) Active Medications Hydrocodone Bitart/Acetaminophen ([place] 10/325 Mg Tablet) 1 tab PO Q4H PRN PRN PRN Reason: PAIN Stop: 11/18/19 23:36 Albuterol/Ipratropium (Duoneb 0.5-3 Mg/3 Ml Neb) 3 ml IH Q4H PRN PRN Stop: 12/14/19 07:58 Allopurinol (Zyloprim 300 Mg) 300 mg PO DAILY [facility] Stop: 12/14/19 09:59 Apixaban (Eliquis 2.5 Mg Tablet) 2.5 mg PO BID [facility] Stop: 12/14/19 09:59 Ascorbic Acid (Vitamin C 500 Mg) 1,000 mg PO BID [facility] Stop: 12/14/19 09:59 Aspirin (Ecotrin 81 Mg) 81 mg PO HS [facility] Stop: 12/13/19 21:59 Last Admin: 11/14/19 00:24 Dose: 81 mg Benzonatate (Tessalon Perles 100 Mg) 100 mg PO UD PRN PRN Reason: COUGH Stop: 12/14/19 07:51 Bumetanide (Bumex 1 Mg) 1 mg PO BID DIURETIC ONE Stop: 11/14/19 22:01 Dronedarone (Multaq 400 Mg) 200 mg PO BID [place] Stop: 12/13/19 21:59 Last Admin: 11/14/19 00:23 Dose: 200 mg Duloxetine HCl (Cymbalta 30 Mg Capsule) 30 mg PO HS [facility] Stop: 12/13/19 21:59 Last Admin: 11/14/19 00:23 Dose: 30 mg Ergocalciferol (Vitamin D2) 50,000 unit PO Mo [facility] Stop: 12/20/19 07:58 Ferrous Sulfate (Feosol 325 Mg) 325 mg PO TID [facility] Stop: 12/13/19 21:59 Last Admin: 11/14/19 00:24 Dose: 325 mg Folic Acid (Folate 1 Mg) 1 mg PO DAILY [facility] Stop: 12/14/19 09:59 Gabapentin (Neurontin 300 Mg) 600 mg PO HS [facility] Stop: 12/13/19 21:59 Last Admin: 11/14/19 00:25 Dose: 600 mg Gabapentin (Neurontin 300 Mg) 300 mg PO DAILY [facility] Stop: 12/14/19 09:59 Glimepiride (Amaryl 4 Mg) 8 mg PO DAILY [facility] Stop: 12/14/19 09:59 Glucagon (Glucagen 1 Mg) 1 mg IM PRN PRN Stop: 12/14/19 07:59 Heparin Sodium (Beef Lung) (Heparin Lock Flush 100 Units/Ml 5ml Syringe) 500 units PICC PRN PRN PRN Reason: IV Triple Lumen/right EJ Stop: 12/14/19 05:50 Miscellaneous Information (Medication Intervention) 0 each MC .RN TO CHECK WITH PT [facility] Stop: 12/14/19 08:14 Montelukast Sodium (Singulair 10 Mg) 10 mg PO HS [facility] Stop: 12/13/19 21:59 Last Admin: 11/14/19 00:25 Dose: 10 mg Ondansetron HCl (Zofran Odt 4 Mg) 4 mg PO Q6H PRN PRN PRN Reason: VOMITING Stop: 12/14/19 07:51 Pantoprazole Sodium (Protonix 40mg Tablet) 40 mg PO LUNCH [place] Stop: 12/14/19 11:59 Pioglitazone HCl (Actos 30 Mg) 30 mg PO LUNCH [facility] Stop: 12/14/19 11:59 Sodium Chloride (Sodium Chloride 0.9% 10 Ml Flush Syringe) 10 ml IV PRN PRN PRN Reason: IV triple lumen/Right EJ Stop: 12/14/19 05:51 Tamsulosin HCl (Flomax 0.4 Mg) 0.4 mg PO DAILY [place] Stop: 12/14/19 09:59 Intake & Output 11/13/19 11/14/19 11:59 11:59 Intake Total 480 Output Total 1050 Balance -570 Weight 127.5 kg Orders 11/20/19 07:59 Ergocalciferol (Vitamin D2) [Vitamin D2] 50,000 unit PO Mo 11/13/19 22:00 Aspirin EC 81 mg [Ecotrin 81 mg] 81 mg PO HS Dronedarone Hydrochloride 400* [Multaq 400 MG] 200 mg PO BID Duloxetine HCl 30 mg [Cymbalta 30 MG Capsule] 30 mg PO HS Ferrous Sulfate 325 mg [Feosol 325 mg] 325 mg PO TID Gabapentin 300 mg [Neurontin 300 mg] 600 mg PO HS Montelukast Sodium 10 mg [Singulair 10 MG] 10 mg PO HS 11/13/19 23:37 Hydrocodone/APAP 10/325 mg [[place] 10/325 MG Tablet] 1 tab PO Q4H PRN PRN 11/14/19 05:51 Heparin Flush 500 units/5 ml [Heparin Lock Flush 100 Units/ml 5ml Syringe] 500 units PICC PRN PRN 11/14/19 05:52 NaCl 0.9% 10 ML FLUSH [Sodium Chloride 0.9% 10 ML FLUSH Syringe] 10 ml IV PRN PRN 11/14/19 07:52 Benzonatate 100 mg [Tessalon Perles 100 MG] 100 mg PO UD PRN Ondansetron ODT 4 MG [Zofran Odt 4 mg] 4 mg PO Q6H PRN PRN 11/14/19 07:59 Albuterol/Ipratropium 3ml Neb* [DUONEB 0.5-3 MG/3 ml Neb] 3 ml IH Q4H PRN PRN 11/14/19 08:00 Glucagon 1 mg [GlucaGen 1 MG] 1 mg IM PRN PRN 11/14/19 08:15 Medication Intervention 0 each MC .RN TO CHECK WITH PT 11/14/19 10:00 Allopurinol 300 mg [Zyloprim 300 mg] 300 mg PO DAILY Apixaban [Eliquis 2.5 mg Tablet] 2.5 mg PO BID Ascorbic Acid 500 mg [Vitamin C 500 MG] 1,000 mg PO BID Folic Acid 1 mg [Folate 1 mg] 1 mg PO DAILY Gabapentin 300 mg [Neurontin 300 mg] 300 mg PO DAILY Glimepiride 4 mg [Amaryl 4 mg] 8 mg PO DAILY Tamsulosin HCl 0.4 mg [Flomax 0.4 MG] 0.4 mg PO DAILY 11/14/19 12:00 PANTOPRAZOLE 40 mg Tablet [Protonix 40MG Tablet] 40 mg PO LUNCH Pioglitazone 30 mg [Actos 30 MG] 30 mg PO LUNCH 11/14/19 22:00 Bumetanide 1 mg [Bumex 1 mg] 1 mg PO BID DIURETIC ONE Lab Tests 11/13/19 11/13/19 11/13/19 12:23 17:45 17:45 WBC 8.1 RBC 2.59 L Hgb 8.7 L Hct 28.2 L MCV 108.9 H MCH 33.6 H MCHC 30.9 L RDW 14.2 H Plt Count 124 L MPV 9.4 Gran % 87.5 H Eos # (Auto) 0.06 Absolute Lymphs (auto) 0.43 L Absolute Monos (auto) 0.51 Lymphocytes % 5.3 L Monocytes % 6.3 Eosinophils % 0.7 Basophils % 0.2 Absolute Granulocytes 7.09 H Basophils # 0.02 Puncture Site LEFT RADIAL pCO2 64 H* pO2 71 L Base Excess 10.7 H O2 Saturation 93.4 L ABG pH 7.38 ABG HCO3 37.9 H* ABG O2 Sat (Measured) 96.8 Félix Test YES A-a Gradient 562 a/A Ratio 0.11 Hemoglobin 10.8 Carboxyhemoglobin 2.8 Methemoglobin 0.7 L Potassium 3.4 L 3.9 Temperature 37.0 POC O2 Flow Rate 100 Sodium 139 Chloride 96 L Carbon Dioxide 40 H Anion Gap 6.9 BUN 26 H Creatinine 1.62 H Estimated GFR 44.0 Glucose 219 H Lactic Acid 3.5 H Calcium 8.4 Total Bilirubin 0.60 AST 13 L ALT 8 Alkaline Phosphatase 75 Troponin I NT-Pro-B Natriuret Pep 4610 H Serum Total Protein 6.5 Albumin 2.9 L Urine Color Urine Appearance Urine pH Ur Specific [place] Urine Protein Urine Ketones Urine Blood Urine Nitrite Urine Bilirubin Urine Urobilinogen Ur Leukocyte Esterase Urine WBC (Auto) Urine RBC (Auto) U Epithel Cells (Auto) Urine Bacteria (Auto) Urine Culture Reflexed Urine Glucose Stool Occult Bld Scrn Influenza Type A Ag Influenza Type B Ag RSV (PCR) Slides for Path Review YES 11/13/19 11/13/19 11/13/19 17:45 17:46 18:42 WBC RBC Hgb Hct MCV MCH MCHC RDW Plt Count MPV Gran % Eos # (Auto) Absolute Lymphs (auto) Absolute Monos (auto) Lymphocytes % Monocytes % Eosinophils % Basophils % Absolute Granulocytes Basophils # Puncture Site pCO2 pO2 Base Excess O2 Saturation ABG pH ABG HCO3 ABG O2 Sat (Measured) Félix Test A-a Gradient a/A Ratio Hemoglobin Carboxyhemoglobin Methemoglobin Potassium Temperature POC O2 Flow Rate Sodium Chloride Carbon Dioxide Anion Gap BUN Creatinine Estimated GFR Glucose Lactic Acid 0.6 Calcium Total Bilirubin AST ALT Alkaline Phosphatase Troponin I < 0.012 NT-Pro-B Natriuret Pep Serum Total Protein Albumin Urine Color YELLOW Urine Appearance CLEAR Urine pH 5.0 Ur Specific [place] 1.010 Urine Protein NEGATIVE Urine Ketones NEGATIVE Urine Blood SMALL Urine Nitrite NEGATIVE Urine Bilirubin NEGATIVE Urine Urobilinogen NEGATIVE Ur Leukocyte Esterase NEGATIVE Urine WBC (Auto) 0-2 Urine RBC (Auto) NONE U Epithel Cells (Auto) NONE Urine Bacteria (Auto) NONE Urine Culture Reflexed ORDERED SEPARATELY Urine Glucose NEGATIVE Stool Occult Bld Scrn Influenza Type A Ag Influenza Type B Ag RSV (PCR) Slides for Path Review 11/13/19 11/13/19 11/13/19 19:33 21:15 Unknown WBC RBC Hgb Hct MCV MCH MCHC RDW Plt Count MPV Gran % Eos # (Auto) Absolute Lymphs (auto) Absolute Monos (auto) Lymphocytes % Monocytes % Eosinophils % Basophils % Absolute Granulocytes Basophils # Puncture Site pCO2 pO2 Base Excess O2 Saturation ABG pH ABG HCO3 ABG O2 Sat (Measured) Félix Test A-a Gradient a/A Ratio Hemoglobin Carboxyhemoglobin Methemoglobin Potassium Temperature POC O2 Flow Rate Sodium Chloride Carbon Dioxide Anion Gap BUN Creatinine Estimated GFR Glucose Lactic Acid Calcium Total Bilirubin AST ALT Alkaline Phosphatase Troponin I < 0.012 NT-Pro-B Natriuret Pep Serum Total Protein Albumin Urine Color Urine Appearance Urine pH Ur Specific [place] Urine Protein Urine Ketones Urine Blood Urine Nitrite Urine Bilirubin Urine Urobilinogen Ur Leukocyte Esterase Urine WBC (Auto) Urine RBC (Auto) U Epithel Cells (Auto) Urine Bacteria (Auto) Urine Culture Reflexed Urine Glucose Stool Occult Bld Scrn NEGATIVE Influenza Type A Ag NEGATIVE Influenza Type B Ag NEGATIVE RSV (PCR) NEGATIVE Slides for Path Review 11/14/19 11/14/19 08:00 08:00 WBC 6.1 RBC 2.74 L Hgb 9.0 L Hct 29.5 L MCV 107.7 H MCH 32.8 H MCHC 30.5 L RDW 13.7 Plt Count 120 L MPV 9.4 Gran % 92.7 H Eos # (Auto) 0.01 Absolute Lymphs (auto) 0.30 L Absolute Monos (auto) 0.12 Lymphocytes % 4.9 L Monocytes % 2.0 Eosinophils % 0.2 Basophils % 0.2 Absolute Granulocytes 5.67 Basophils # 0.01 Puncture Site pCO2 pO2 Base Excess O2 Saturation ABG pH ABG HCO3 ABG O2 Sat (Measured) Félix Test A-a Gradient a/A Ratio Hemoglobin Carboxyhemoglobin Methemoglobin Potassium 4.0 Temperature POC O2 Flow Rate Sodium 139 Chloride 97 L Carbon Dioxide 40 H Anion Gap 6.0 BUN 29 H Creatinine 1.60 H Estimated GFR 44.7 Glucose 322 H Lactic Acid Calcium 8.7 Total Bilirubin AST ALT Alkaline Phosphatase Troponin I NT-Pro-B Natriuret Pep Serum Total Protein Albumin Urine Color Urine Appearance Urine pH Ur Specific [place] Urine Protein Urine Ketones Urine Blood Urine Nitrite Urine Bilirubin Urine Urobilinogen Ur Leukocyte Esterase Urine WBC (Auto) Urine RBC (Auto) U Epithel Cells (Auto) Urine Bacteria (Auto) Urine Culture Reflexed Urine Glucose Stool Occult Bld Scrn Influenza Type A Ag Influenza Type B Ag RSV (PCR) Slides for Path Review Code(s): J18.9 - PNEUMONIA, UNSPECIFIED ORGANISM (2) Type 2 diabetes mellitus Current Visit: Yes Status: Acute Qualifiers: Diabetes mellitus exterminator insulin use: with exterminator use Diabetes mellitus complication status: with circulatory complication Diabetes mellitus complication detail: with other circulatory complications Qualified Code(s): E11.59 - Type 2 diabetes mellitus with other circulatory complications; Z79.4 - shelter (current) use of insulin (3) Chronic obstructive pulmonary disease Current Visit: Yes Status: Acute Qualifiers: COPD type: COPD with acute lower respiratory infection Qualified Code(s): J44.0 - Chronic obstructive pulmonary disease with (acute) lower respiratory infection (4) Interstitial lung disease Current Visit: Yes Status: Acute Code(s): J84.9 - INTERSTITIAL PULMONARY DISEASE, UNSPECIFIED
[2019-11-14] MEDS: ZYLOPRIM 300 MG PO SCH (09:36)
[2019-11-14] MEDS: Flomax 0.4 MG PO SCH (09:36)
[2019-11-14] MEDS: ELIQUIS 2.5 MG TABLET PO SCH ×2 (09:36→22:25)
[2019-11-14] MEDS: AMARYL 4 MG PO SCH (09:37)
[2019-11-14] MEDS: FOLATE 1 MG PO SCH (09:37)
[2019-11-14] MEDS: Vitamin C 500 MG PO SCH ×2 (09:37→22:24)
[2019-11-14] MEDS ORDERED: NON-FORMULARY ITEM (Ascorbic Acid [Vitamin C] 1,000 MG) PO SCH (10:00)
[2019-11-14] MEDS ORDERED: CALCIFEDIOL PO SCH (10:00)
[2019-11-14] MEDS ORDERED: PHARMACY DOSING REQUEST MC SCH (10:45)
[2019-11-14 10:54] LABS: Slide Review 1 YES
[2019-11-14] MEDS: ROCEPHIN 1 Gm-D5w 50 ml Bag** 1 G/50 ML IVPB IV SCH (10:58)
[2019-11-14] MEDS: Actos 30 MG PO SCH (11:03)
[2019-11-14] MEDS: Protonix 40MG Tablet PO SCH (11:03)
[2019-11-14] MEDS: Zithromax 500 MG/ 250 ML NaCl Premix 500 MG/250 ML IVPB IV SCH (11:35)
[2019-11-14] MEDS ORDERED: Lasix 20 MG/2 ML IV ONE (12:27)
[2019-11-14] MEDS: solu-MEDROL 125 MG IV SCH ×2 (16:18→22:24)
[2019-11-14] MEDS ORDERED: BUMEX 1 MG PO ONE (22:00)
[2019-11-14] MEDS: Sodium Chloride 0.9% 10 ML FLUSH Syringe IV PRN (22:29)
[2019-11-14] MEDS: DUONEB 0.5-3 MG/3 ml Neb IH PRN (23:24)
[2019-11-15] MEDS: solu-MEDROL 125 MG IV SCH ×3 (05:37→23:04)
[2019-11-15] MEDS: Sodium Chloride 0.9% 10 ML FLUSH Syringe IV PRN ×2 (05:38→13:57)
--- NOTE | 2019-11-15 09:45 | PCM.NOTE ---
Date and Time: 11/15/19939 Subjective Assessment: Patient of Dr. Avila's with multiple medical problems. States he no longer sees a tree doctor or independent beauty consultant and Dr. Avila takes care of all these problmes for him. Nurse reports his daughter was concerned he is not on IV diuretic and that BNP had not been rechecked. Patient reports hx of a. fib and chf with exacerbation in 2017 at which time he fired his specialists. He has his of black lung he reports. He states he was spitting up drops of blood after coughing when he came in. He denies feeling swollen. He is unsure of his baseline weight and does not weight himself regularly. Notes mention that he is on 3L of oxygen at home for4-5 years and his nurse states daughter told her that he just wears this if he feels like he needs it. - Review of Systems Constitutional: No Symptoms Eyes: No Symptoms Respiratory: Cough, Short Of Breath Cardiac: No Symptoms Abdominal/Gastrointestinal: No Symptoms Genitourinary Symptoms: No Symptoms Musculoskeletal: No Symptoms Skin: No Symptoms Objective Exam General Appearance: no apparent distress, other (on oxygen by mask; speaking in full sentences) Skin Exam: normal color, warm, dry Respiratory Exam: other (crackles at bases bilat, equal breath sounds, no wheezes) Cardiovascular Exam: other (irregularly irregular) Gastrointestinal/Abdomen Exam: soft, normal bowel sounds, No tenderness, No distention, No mass Extremity Exam: other (+2 edema to knees bilat) OBJECTIVE DATA Vital Signs: Vital Signs - 24 hr Temp Pulse Resp BP Pulse Ox 11/15/19 08:00 115 H 11/15/19 05:00 98.7 F 103 H 26 H 144/81 96 11/15/19 04:00 91 H 11/15/19 01:00 98.0 F 114 H 28 H 149/94 94 L 11/15/19 00:01 95 H 11/14/19 23:29 108 H 24 96 11/14/19 21:00 97.7 F 105 H 24 163/87 96 11/14/19 20:00 95 H 11/14/19 17:00 97.9 F 96 H 21 147/87 93 L 11/14/19 16:12 92 H 24 97 11/14/19 16:00 92 H 11/14/19 12:32 98.4 F 92 H 29 H 131/85 97 11/14/19 12:00 93 H Oxygen-Last 24 hours Oxygen Flowrate (L/min)-RT 12 Oxygen Flowrate (L/min)-RT 12 Oxygen Flowrate (L/min)-RT 12 Oxygen Flowrate (L/min)-RT 7 Pain Assessment - Last Documented Pain Intensity 0 Pain Scale Used 0-10 Pain Scale Intake and Output: Intake & Output 11/13/19 11/14/19 11/15/19 11/16/19 06:59 06:59 06:59 06:59 Intake Total 480 900 Output Total 1050 1050 Balance -570 -150 Weight 127.5 kg 127.6 kg Lab Results: Accuchecks Date 11/15/19 Date 11/14/19 Date 11/14/19 Time 07:30 Time 16:30 Time 11:30 Accucheck Value: 324 Accucheck Value: 335 Accucheck Value: 238 Accucheck Value: 237 Lab Results-Last 24 Hours 11/14/19 Range/Units 08:00 Slides for Path Review YES Radiology Exams: Radiology Procedures Category Date Time Status CHEST 1 VIEW (PORTABLE) Stat Exams 11/13/19 12:24 Completed CHEST 1 VIEW (PORTABLE) Stat Exams 11/13/19 17:38 Completed Multi-Disciplinary Progress Notes: Multi-Disciplinary Progress Notes 11/14/19 14:01 Case Management Note by Linda Garcia TALKED WITH PT ABOUT NEEDS AT DISCHARGE. CURRENTLY PT USES [facility] FOR HIS OXYGEN NEEDS. HE HAS HIS AT HOME THAT HELPS TAKE CARE OF HIM AND HE IS UNSURE AT THIS TIME IF HE WILL NEED HOME HEALTH CARE. WILL CONTINUE TO MONITOR. Initialized on 11/14/19 14:01 - END OF NOTE 11/14/19 10:59 Pharmacy Note by John Fonseca Please be aware of possible drug interaction with Zithromax and Multaq. May prolong QT interval. Initialized on 11/14/19 10:59 - END OF NOTE Assessment/Plan (1) CHF exacerbation Current Visit: Yes Status: Acute Assessment & Plan: Start IV bumex and continue with daily weights and add accurate ins and outs. Will try to obtain last Echo report. Code(s): I50.9 - HEART FAILURE, UNSPECIFIED (2) Atrial fibrillation with rapid ventricular response Current Visit: Yes Status: Acute Assessment & Plan: Hr currently 112; will check EKG. Patient is not on any medication at home for rate control. Willl start oral diltiazem. Currently anticoagulated on Eliquis. Code(s): I48.91 - UNSPECIFIED ATRIAL FIBRILLATION (3) Diabetes type 2, uncontrolled Current Visit: Yes Status: Acute Assessment & Plan: Will check Hgb A1C. Start lantus 10 units and add low dose sliding scale of novolog. Primary doctor has continued oral diabetes medications. Blood glucose may be high due to steroids. Code(s): E11.65 - TYPE 2 DIABETES MELLITUS WITH HYPERGLYCEMIA (4) Interstitial lung disease Current Visit: Yes Status: Acute Assessment & Plan: Continue oxygen and supportive care. Code(s): J84.9 - INTERSTITIAL PULMONARY DISEASE, UNSPECIFIED (5) COPD exacerbation Current Visit: No Status: Resolved Assessment & Plan: Continue IV antibiotics and IV steroids. Code(s): J44.1 - CHRONIC OBSTRUCTIVE PULMONARY DISEASE W (ACUTE) EXACERBATION
[2019-11-15] MEDS ORDERED: Lantus Insulin SQ ONE (10:00)
[2019-11-15] MEDS: FEOSOL 325 MG PO SCH ×3 (10:06→23:04)
[2019-11-15] MEDS: ELIQUIS 2.5 MG TABLET PO SCH ×2 (10:06→23:03)
[2019-11-15] MEDS: AMARYL 4 MG PO SCH (10:06)
[2019-11-15] MEDS: Flomax 0.4 MG PO SCH (10:06)
[2019-11-15] MEDS: Multaq 400 MG PO SCH ×2 (10:06→23:02)
[2019-11-15] MEDS: FOLATE 1 MG PO SCH (10:06)
[2019-11-15] MEDS: NEURONTIN 300 MG PO SCH ×2 (10:07→23:03)
[2019-11-15] MEDS: Vitamin C 500 MG PO SCH ×2 (10:07→23:03)
[2019-11-15] MEDS: ZYLOPRIM 300 MG PO SCH (10:07)
[2019-11-15] MEDS: BUMEX 1 MG IV SCH ×2 (10:08→23:02)
[2019-11-15] MEDS: NovoLOG Insulin SQ PRN ×3 (10:10→16:56)
[2019-11-15] MEDS: Cardizem 30 MG PO SCH ×3 (10:12→23:09)
[2019-11-15] MEDS: ROCEPHIN 1 Gm-D5w 50 ml Bag** 1 G/50 ML IVPB IV SCH (10:25)
[2019-11-15] MEDS: Zithromax 500 MG/ 250 ML NaCl Premix 500 MG/250 ML IVPB IV SCH (10:53)
[2019-11-15] MEDS: Protonix 40MG Tablet PO SCH (12:16)
[2019-11-15] MEDS: Actos 30 MG PO SCH (12:16)
[2019-11-15] MEDS: Singulair 10 MG PO SCH (23:04)
[2019-11-15] MEDS: ECOTRIN 81 MG PO SCH (23:04)
[2019-11-15] MEDS: Cymbalta 30 MG Capsule PO SCH (23:04)
[2019-11-15] MEDS: DUONEB 0.5-3 MG/3 ml Neb IH PRN (23:31)
[2019-11-16] MEDS: Cardizem 30 MG PO SCH ×4 (04:37→21:59)
[2019-11-16] MEDS: solu-MEDROL 125 MG IV SCH ×3 (05:57→21:51)
[2019-11-16] MEDS: Sodium Chloride 0.9% 10 ML FLUSH Syringe IV PRN ×2 (05:58→21:51)
[2019-11-16 07:05] LABS: A-aADO2 602; ABG POTASSIUM 3.7 (3.5-5.1); ARTERIAL BLOOD GAS BASE EXCESS 10.8 (-2.0-2.0); ARTERIAL BLOOD GAS PCO2 53 mmHg (35-45); ARTERIAL BLOOD GAS pH 7.45 (7.35-7.45); CARBOXYHEMOGLOBIN 2.2 % THgb (0.0-6.9); HCO3- 36.8 (22-28); HGB O2 SAT 85.7 g/dF (94-100); paO2 pAO1 0.07
[2019-11-16 07:06] LABS: ABG HEMOGLOBIN 13.8; ABG SITE LEFT RADIAL; ALLEN TEST OK? YES; ARTERIAL BLD GAS O2 SATURATION 88.5 % (95-100); ARTERIAL BLOOD GAS FIO2 100 %; ARTERIAL BLOOD GAS PO2 45 mmHg (75-100)
[2019-11-16] MEDS: Lantus Insulin SQ SCH (08:32)
[2019-11-16] MEDS: NovoLOG Insulin SQ PRN ×4 (08:33→21:52)
[2019-11-16] MEDS: ROCEPHIN 1 Gm-D5w 50 ml Bag** 1 G/50 ML IVPB IV SCH (09:56)
[2019-11-16] MEDS: Multaq 400 MG PO SCH ×2 (09:57→21:46)
[2019-11-16] MEDS: Flomax 0.4 MG PO SCH (10:03)
[2019-11-16] MEDS: ZYLOPRIM 300 MG PO SCH (10:03)
[2019-11-16] MEDS: FOLATE 1 MG PO SCH (10:03)
[2019-11-16] MEDS: ELIQUIS 2.5 MG TABLET PO SCH ×2 (10:03→21:50)
[2019-11-16] MEDS: FEOSOL 325 MG PO SCH ×3 (10:03→21:45)
[2019-11-16] MEDS: NEURONTIN 300 MG PO SCH ×2 (10:03→21:49)
[2019-11-16] MEDS: Vitamin C 500 MG PO SCH ×2 (10:04→21:46)
[2019-11-16] MEDS: AMARYL 4 MG PO SCH (10:04)
[2019-11-16] MEDS: Zithromax 500 MG/ 250 ML NaCl Premix 500 MG/250 ML IVPB IV SCH (10:05)
[2019-11-16] MEDS: BUMEX 1 MG IV SCH ×2 (10:07→21:43)
[2019-11-16] MEDS: DUONEB 0.5-3 MG/3 ml Neb IH SCH ×3 (11:01→19:11)
[2019-11-16] MEDS: Actos 30 MG PO SCH (11:49)
[2019-11-16] MEDS: Protonix 40MG Tablet PO SCH (11:49)
--- NOTE | 2019-11-16 12:02 | PCM.NOTE ---
Date and Time: 11/16/19 1201 Subjective Assessment: still very short of breath, - Review of Systems Constitutional: No Fever, No Chills Eyes: No Symptoms Ears, Nose, & Throat: No Symptoms Respiratory: Orthopnea, Short Of Breath, Wheezing, No Cough Cardiac: No Chest Pain, No Edema, No Syncope Abdominal/Gastrointestinal: No Abdominal Pain, No Nausea, No Vomiting, No Diarrhea Genitourinary Symptoms: No Dysuria Musculoskeletal: No Back Pain, No Neck Pain Skin: No Rash Neurological: No Dizziness, No Focal Weakness, No Sensory Changes Psychological: No Symptoms Endocrine: No Symptoms Hematologic/Lymphatic: No Symptoms Immunological/Allergic: No Symptoms Objective Exam General Appearance: no apparent distress, alert Neurologic Exam: alert, oriented x 3, cooperative, normal mood/affect, nml cerebellar function, sensation nml, No motor deficits Skin Exam: normal color, warm, dry Eye Exam: PERRL, EOMI, eyes nml inspection Ears, Nose, Throat Exam: normal ENT inspection, pharynx normal, moist mucous membranes Neck Exam: normal inspection, non-tender, supple, full range of motion Respiratory Exam: diminished breath sounds, crackles/rales, rhonchi, wheezing, No respiratory distress Cardiovascular Exam: regular rate/rhythm, normal heart sounds Gastrointestinal/Abdomen Exam: soft, No tenderness, No mass Extremity Exam: normal inspection, normal range of motion Back Exam: normal inspection, normal range of motion, No CVA tenderness, No vertebral tenderness Male Genitalia Exam: deferred Rectal Exam: deferred OBJECTIVE DATA Vital Signs: Vital Signs - 24 hr Temp Pulse Resp BP Pulse Ox 11/16/19 11:55 98.3 F 72 20 134/61 94 L 11/16/19 11:06 100 H 24 92 L 11/16/19 08:08 99 H 92 L 11/16/19 07:47 97.6 F 112 H 22 146/91 88 L 11/16/19 05:00 98.7 F 100 H 24 115/74 90 L 11/16/19 01:00 97.7 F 114 H 28 H 154/90 91 L 11/15/19 23:53 116 H 27 H 92 L 11/15/19 21:00 98.8 F 102 H 26 H 144/85 90 L 11/15/19 16:16 98.5 F 98 H 18 164/89 87 L Oxygen-Last 24 hours O2 Percentage 4 Liters = 36% O2 Percentage 100% O2 Percentage 6 Liters = 44% Oxygen Flowrate (L/min)-RT 15 Oxygen Flowrate (L/min)-RT 15 Oxygen Flowrate (L/min)-RT 15 Pain Assessment - Last Documented Pain Intensity 1 Pain Scale Used 0-10 Pain Scale Intake and Output: Intake & Output 11/14/19 11/15/19 11/16/19 11/17/19 11:59 11:59 11:59 11:59 Intake Total 480 1380 200 Output Total 1050 1050 1200 Balance -570 330 -1000 Weight 127.5 kg 127.6 kg 126.1 kg Lab Results: Accuchecks Date 11/16/19 Date 11/15/19 Date 11/15/19 Time 07:30 Time 21:30 Time 16:30 Accucheck Value: 327 Accucheck Value: 319 Accucheck Value: 240 Lab Results-Last 24 Hours 11/16/19 Range/Units 07:02 Puncture Site LEFT RADIAL pCO2 53 H (35-45) mmHg pO2 45 L* (75-100) mmHg Base Excess 10.8 H (-2.0-2.0) O2 Saturation 85.7 L (94-100) g/dF ABG pH 7.45 (7.35-7.45) ABG HCO3 36.8 H* (22-28) ABG O2 Sat (Measured) 88.5 L (95-100) % Félix Test YES A-a Gradient 602 a/A Ratio 0.07 Hemoglobin 13.8 Carboxyhemoglobin 2.2 (0.0-6.9) % THgb Methemoglobin 1.0 L (1.4-1.5) % Potassium 3.7 (3.5-5.1) Temperature 37.0 C POC O2 Flow Rate 100 % Radiology Exams: Radiology Procedures Category Date Time Status ECHO W/2D AND DOPPLER [US] Routine Exams 11/16/19 08:00 Taken Multi-Disciplinary Progress Notes: Multi-Disciplinary Progress Notes 11/16/19 11:50 Case Management Note by Linda Garcia Spoke with pt about discharge needs. Pt continues to plan on going home (self care)-Oxygen currently supplied by [facility]. Will continue to follow for all Discharge needs. Initialized on 11/16/19 11:50 - END OF NOTE 11/16/19 07:22 Respiratory Note by Diamond Hickey RT CALLED PER NURSE DUE TO PT'S O2 SAT DROPPING TO 87-89% ON 15LPM VIA OXYMASK. ABG DRAWN AT THIS TIME DUE TO LOW O2 SAT. PT CHANGED OVER TO HIGH FLOW (50L, 85% ) BASED ON ABG RESULTS. PT TOLERATING WELL. O2 SAT INCREASED TO 91%. Initialized on 11/16/19 07:22 - END OF NOTE Assessment/Plan (1) Pneumonia Current Visit: Yes Status: Acute Qualifiers: Pneumonia type: due to unspecified organism Laterality: bilateral Lung location: unspecified part of lung Qualified Code(s): J18.9 - Pneumonia, unspecified organism Code(s): J18.9 - PNEUMONIA, UNSPECIFIED ORGANISM (2) Type 2 diabetes mellitus Current Visit: Yes Status: Acute Qualifiers: Diabetes mellitus halfway insulin use: with meterman use Diabetes mellitus complication status: with circulatory complication Diabetes mellitus complication detail: with other circulatory complications Qualified Code(s): E11.59 - Type 2 diabetes mellitus with other circulatory complications; Z79.4 - terminal gauger supervisor (current) use of insulin (3) Chronic obstructive pulmonary disease Current Visit: Yes Status: Acute Qualifiers: COPD type: COPD with acute lower respiratory infection Qualified Code(s): J44.0 - Chronic obstructive pulmonary disease with (acute) lower respiratory infection (4) Interstitial lung disease Current Visit: Yes Status: Chronic Code(s): J84.9 - INTERSTITIAL PULMONARY DISEASE, UNSPECIFIED
[2019-11-16] MEDS: PULMICORT 0.5 MG/2 ML RESPULES IH SCH ×2 (12:15→19:12)
[2019-11-16 16:18] LABS: A-aADO2 560; ABG POTASSIUM 3.4 (3.5-5.1); ARTERIAL BLOOD GAS BASE EXCESS 12.4 (-2.0-2.0); ARTERIAL BLOOD GAS PCO2 58 mmHg (35-45); ARTERIAL BLOOD GAS pH 7.43 (7.35-7.45); CARBOXYHEMOGLOBIN 2.1 % THgb (0.0-6.9); HCO3- 38.5 (22-28); HGB O2 SAT 85.2 g/dF (94-100); Methhemoglobin 0.9 % (1.4-1.5); paO2 pAO1 0.07
[2019-11-16 16:19] LABS: ABG HEMOGLOBIN 9.8; ARTERIAL BLD GAS O2 SATURATION 88 % (95-100); ARTERIAL BLOOD GAS FIO2 95 %; ARTERIAL BLOOD GAS PO2 45 mmHg (75-100)
[2019-11-16 16:20] LABS: ABG SITE LEFT RADIAL; ALLEN TEST OK? YES
[2019-11-16 16:57] LABS: Absolute Neutrophil Ct (ANC) 8.67 (1.4-6.9); BASOPHIL % 0.1 % (0.0-0.4); Basophil (Absolute #) 0.01 (0-0.4); Eosinophil % 0.1 % (0.00-5.0); Eosinophil (Absolute #) 0.01 (0-0.5); Hematocrit 29.3 % (42-50); Hemoglobin 8.9 gm/dl (12.5-18.0); Lymphocyte (Absolute #) 0.17 (1.0-4.6); Lymphocytes % 1.8 % (24.0-44.0); Mean Cell Volume 107.3 fl (78-100); Mean Corpuscular Hemoglobin 32.6 pg (26-32); Mean Corpuscular Hgb Concent. 30.4 g/dl (32-36); Monocyte (Absolute #) 0.42 (0.0-1.3); Monocytes % 4.5 % (0.0-12.0); Neutrophil % 93.5 % (36.0-66.0); Platelet Count 132 K/mm3 (150-450); Red Blood Count 2.73 M/mm3 (4.1-5.6); Red Cell Distribution Width 14.2 % (11.5-14.0); White Blood Count 9.3 K/mm3 (4.0-10.5)
[2019-11-16 18:15] LABS: Slide Review 1 YES
[2019-11-16] MEDS: Cymbalta 30 MG Capsule PO SCH (21:49)
[2019-11-16] MEDS: Singulair 10 MG PO SCH (21:50)
[2019-11-16] MEDS: ECOTRIN 81 MG PO SCH (21:50)
[2019-11-17] MEDS: Cardizem 30 MG PO SCH ×4 (04:52→22:03)
[2019-11-17] MEDS: Sodium Chloride 0.9% 10 ML FLUSH Syringe IV PRN (04:53)
[2019-11-17] MEDS: solu-MEDROL 125 MG IV SCH ×3 (04:53→22:01)
[2019-11-17 05:33] LABS: Absolute Neutrophil Ct (ANC) 7.09 (1.4-6.9); Basophil (Absolute #) 0 (0-0.4); Eosinophil % 0.1 % (0.00-5.0); Eosinophil (Absolute #) 0.01 (0-0.5); Hematocrit 23.3 % (42-50); Hemoglobin 7.1 gm/dl (12.5-18.0); Lymphocyte (Absolute #) 0.15 (1.0-4.6); Mean Cell Volume 107.9 fl (78-100); Mean Corpuscular Hemoglobin 32.9 pg (26-32); Mean Corpuscular Hgb Concent. 30.5 g/dl (32-36); Mean Platelet Volume 10.3 fl (6-9.5); Monocyte (Absolute #) 0.27 (0.0-1.3); Monocytes % 3.6 % (0.0-12.0); Neutrophil % 94.3 % (36.0-66.0); Platelet Count 126 K/mm3 (150-450); Red Blood Count 2.16 M/mm3 (4.1-5.6); Red Cell Distribution Width 14.1 % (11.5-14.0); White Blood Count 7.5 K/mm3 (4.0-10.5)
[2019-11-17] MEDS: DUONEB 0.5-3 MG/3 ml Neb IH SCH ×4 (05:48→19:49)
[2019-11-17] MEDS: PULMICORT 0.5 MG/2 ML RESPULES IH SCH ×2 (05:48→19:49)
[2019-11-17 05:58] LABS: ALBUMIN 3.1 g/dL (3.5-5.0); ANION GAP 8.5 MEQ/L (5-15); BILIRUBIN,TOTAL 0.9 mg/dL (0.2-1.3); Calcium 8.5 mg/dL (8.4-10.2); Creatinine 1 1.73 mg/dL (0.66-1.25); Total Protein 6.7 g/dL (6.3-8.2)
[2019-11-17] MEDS: NovoLOG Insulin SQ PRN ×4 (08:19→22:03)
[2019-11-17] MEDS: Lantus Insulin SQ SCH (08:19)
[2019-11-17] MEDS: Multaq 400 MG PO SCH ×2 (08:49→22:01)
[2019-11-17] MEDS: BUMEX 1 MG IV SCH ×2 (08:50→22:01)
[2019-11-17] MEDS: ROCEPHIN 1 Gm-D5w 50 ml Bag** 1 G/50 ML IVPB IV SCH (08:53)
--- NOTE | 2019-11-17 09:04 | XRAY ---
Indication: Pneumonia. Low oxygenation. Comparison: November 13, 2019. Portable chest demonstrates minimal clearing of the diffuse bilateral airspace opacities with stable bilateral effusions, cardiomegaly, and right central venous access catheter. No new cardiopulmonary abnormalities.
[2019-11-17] MEDS: Zithromax 500 MG/ 250 ML NaCl Premix 500 MG/250 ML IVPB IV SCH (09:46)
[2019-11-17] MEDS: NEURONTIN 300 MG PO SCH ×2 (09:48→22:01)
[2019-11-17] MEDS: ZYLOPRIM 300 MG PO SCH (09:48)
[2019-11-17] MEDS: FEOSOL 325 MG PO SCH ×3 (09:49→22:01)
[2019-11-17] MEDS: FOLATE 1 MG PO SCH (09:49)
[2019-11-17] MEDS: Actos 30 MG PO SCH (12:12)
[2019-11-17] MEDS: AMARYL 4 MG PO SCH (12:12)
[2019-11-17] MEDS: Protonix 40MG Tablet PO SCH (12:13)
[2019-11-17] MEDS: Flomax 0.4 MG PO SCH (12:13)
[2019-11-17] MEDS: Vitamin C 500 MG PO SCH ×2 (12:13→22:02)
[2019-11-17] MEDS ORDERED: Lasix 20 MG/2 ML IV PRN (12:34)
--- NOTE | 2019-11-17 12:44 | PCM.NOTE ---
Date and Time: 11/17/19 1242 Subjective Assessment: last 24 hours events noted. - Review of Systems Constitutional: No Fever, No Chills Eyes: No Symptoms Ears, Nose, & Throat: No Symptoms Respiratory: Cough, Orthopnea, Short Of Breath, Wheezing Cardiac: No Chest Pain, No Edema, No Syncope Abdominal/Gastrointestinal: No Abdominal Pain, No Nausea, No Vomiting, No Diarrhea Genitourinary Symptoms: No Dysuria Musculoskeletal: No Back Pain, No Neck Pain Skin: No Rash Neurological: No Dizziness, No Focal Weakness, No Sensory Changes Psychological: No Symptoms Endocrine: No Symptoms Hematologic/Lymphatic: No Symptoms Immunological/Allergic: No Symptoms Objective Exam General Appearance: moderate distress, alert Neurologic Exam: alert, oriented x 3, cooperative, normal mood/affect, nml cerebellar function, sensation nml, No motor deficits Skin Exam: normal color, warm, dry Eye Exam: PERRL, EOMI, eyes nml inspection Ears, Nose, Throat Exam: normal ENT inspection, pharynx normal, moist mucous membranes Neck Exam: normal inspection, non-tender, supple, full range of motion Respiratory Exam: diminished breath sounds, accessory muscle use, prolonged expirations, crackles/rales, rhonchi, wheezing, No respiratory distress Cardiovascular Exam: regular rate/rhythm, normal heart sounds Gastrointestinal/Abdomen Exam: soft, No tenderness, No mass Extremity Exam: normal inspection, normal range of motion Back Exam: normal inspection, normal range of motion, No CVA tenderness, No vertebral tenderness Male Genitalia Exam: deferred Rectal Exam: deferred OBJECTIVE DATA Vital Signs: Vital Signs - 24 hr Temp Pulse Resp BP Pulse Ox 11/17/19 10:32 95 H 33 H 100 11/17/19 07:37 97.7 F 93 H 22 116/93 96 11/17/19 05:48 94 H 33 H 96 11/17/19 04:55 98.9 F 102 H 22 143/69 94 L 11/17/19 03:17 95 11/17/19 00:51 98.5 F 84 29 H 115/66 98 11/16/19 21:00 98.0 F 86 28 H 100/66 95 11/16/19 19:21 27 L 90 L 11/16/19 16:14 98.0 F 98 H 22 134/91 85 L 11/16/19 14:39 89 26 H 90 L 11/16/19 13:28 90 L Oxygen-Last 24 hours O2 Percentage 100% O2 Percentage 100% O2 Percentage 100% O2 Percentage 100% O2 Percentage 90% Pain Assessment - Last Documented Pain Intensity 0 Pain Scale Used 0-10 Pain Scale Intake and Output: Intake & Output 11/15/19 11/16/19 11/17/19 11/18/19 11:59 11:59 11:59 11:59 Intake Total 1380 200 860 Output Total 1050 1200 1300 Balance 330 -1000 -440 Weight 127.6 kg 126.1 kg 126 kg Lab Results: Accuchecks Date 11/17/19 Date 11/17/19 Date 11/16/19 Date 11/16/19 Time 11:30 Time 07:30 Time 21:30 Time 16:30 Accucheck Value: 319 Accucheck Value: 303 Accucheck Value: 254 Accucheck Value: 322 Lab Results-Last 24 Hours 11/16/19 11/16/19 11/17/19 Range/Units 16:07 Unknown 04:30 WBC 9.3 7.5 (4.0-10.5) K/mm3 RBC 2.73 L 2.16 L (4.1-5.6) M/mm3 Hgb 8.9 L 7.1 L D (12.5-18.0) gm/dl Hct 29.3 L 23.3 L (42-50) % MCV 107.3 H 107.9 H (78-100) fl MCH 32.6 H 32.9 H (26-32) pg MCHC 30.4 L 30.5 L (32-36) g/dl RDW 14.2 H 14.1 H (11.5-14.0) % Plt Count 132 L 126 L (150-450) K/mm3 MPV 10.0 H 10.3 H (6-9.5) fl Gran % 93.5 H 94.3 H (36.0-66.0) % Eos # (Auto) 0.01 0.01 (0-0.5) Absolute Lymphs (auto) 0.17 L 0.15 L (1.0-4.6) Absolute Monos (auto) 0.42 0.27 (0.0-1.3) Lymphocytes % 1.8 L 2.0 L (24.0-44.0) % Monocytes % 4.5 3.6 (0.0-12.0) % Eosinophils % 0.1 0.1 (0.00-5.0) % Basophils % 0.1 0.0 (0.0-0.4) % Absolute Granulocytes 8.67 H 7.09 H (1.4-6.9) Basophils # 0.01 0 (0-0.4) Puncture Site LEFT RADIAL pCO2 58 H (35-45) mmHg pO2 45 L* (75-100) mmHg Base Excess 12.4 H (-2.0-2.0) O2 Saturation 85.2 L (94-100) g/dF ABG pH 7.43 (7.35-7.45) ABG HCO3 38.5 H* (22-28) ABG O2 Sat (Measured) 88 L (95-100) % Félix Test YES A-a Gradient 560 a/A Ratio 0.07 Hemoglobin 9.8 Carboxyhemoglobin 2.1 (0.0-6.9) % THgb Methemoglobin 0.9 L (1.4-1.5) % Potassium 3.4 L (3.5-5.1) Temperature 37.0 C POC O2 Flow Rate 95 % Sodium (137-145) mmol/L Chloride (98-107) mmol/L Carbon Dioxide (22-30) mmol/L Anion Gap (5-15) MEQ/L BUN (9-20) mg/dL Creatinine (0.66-1.25) mg/dL Estimated GFR ML/MIN Glucose (74-106) mg/dL Calcium (8.4-10.2) mg/dL Total Bilirubin (0.2-1.3) mg/dL AST (17-59) U/L ALT (0-50) U/L Alkaline Phosphatase (38-126) U/L NT-Pro-B Natriuret Pep (0-1800) pg/mL Serum Total Protein (6.3-8.2) g/dL Albumin (3.5-5.0) g/dL Slides for Path Review YES 11/17/19 11/17/19 Range/Units 04:30 05:00 WBC (4.0-10.5) K/mm3 RBC (4.1-5.6) M/mm3 Hgb (12.5-18.0) gm/dl Hct (42-50) % MCV (78-100) fl MCH (26-32) pg MCHC (32-36) g/dl RDW (11.5-14.0) % Plt Count (150-450) K/mm3 MPV (6-9.5) fl Gran % (36.0-66.0) % Eos # (Auto) (0-0.5) Absolute Lymphs (auto) (1.0-4.6) Absolute Monos (auto) (0.0-1.3) Lymphocytes % (24.0-44.0) % Monocytes % (0.0-12.0) % Eosinophils % (0.00-5.0) % Basophils % (0.0-0.4) % Absolute Granulocytes (1.4-6.9) Basophils # (0-0.4) Puncture Site pCO2 (35-45) mmHg pO2 (75-100) mmHg Base Excess (-2.0-2.0) O2 Saturation (94-100) g/dF ABG pH (7.35-7.45) ABG HCO3 (22-28) ABG O2 Sat (Measured) (95-100) % Félix Test A-a Gradient a/A Ratio Hemoglobin Carboxyhemoglobin (0.0-6.9) % THgb Methemoglobin (1.4-1.5) % Potassium 4.0 (3.5-5.1) Temperature C POC O2 Flow Rate % Sodium 140 (137-145) mmol/L Chloride 98 (98-107) mmol/L Carbon Dioxide 38 H (22-30) mmol/L Anion Gap 8.5 (5-15) MEQ/L BUN 57 H (9-20) mg/dL Creatinine 1.73 H (0.66-1.25) mg/dL Estimated GFR 40.8 ML/MIN Glucose 303 H (74-106) mg/dL Calcium 8.5 (8.4-10.2) mg/dL Total Bilirubin 0.90 (0.2-1.3) mg/dL AST 23 (17-59) U/L ALT 12 (0-50) U/L Alkaline Phosphatase 63 (38-126) U/L NT-Pro-B Natriuret Pep 3150 H (0-1800) pg/mL Serum Total Protein 6.7 (6.3-8.2) g/dL Albumin 3.1 L (3.5-5.0) g/dL Slides for Path Review Radiology Exams: Radiology Procedures Category Date Time Status CHEST 1 VIEW (PORTABLE) Routine Exams 11/17/19 08:32 Completed ECHO W/2D AND DOPPLER [US] Routine Exams 11/16/19 08:00 Taken Multi-Disciplinary Progress Notes: Multi-Disciplinary Progress Notes 11/16/19 16:20 (created 11/16/19 17:19) Respiratory Note by Diamond Hickey PT'S O2 SAT DROPPING TO 85% WHILE SLEEPING ON HIGH FLOW. PT CHANGED OVER TO CPAP PER HOME USE DUE TO PT SLEEPING BUT O2 SAT DROPPED QUICKLY TO 64%. PT WAS THEN PLACED BACK ON HIGH FLOW WITH SETTINGS INCREASED TO 55L WITH 95% FIO2. O2 SLOWLY INCREASED TO 90%. ABG DRAWN AND RESULTS CALLED TO DR. DELEON. PT PLACED ON BIPAP (28/04 RR12 100%) PER DR. DELEON ORDER BASED ON ABG RESULTS. PT'S O2 SAT QUICKLY INCREASED TO 94-96% WITH BIPAP. PT TOLERATING WELL. AND DAUGHTER AT BEDSIDE. Initialized on 11/16/19 17:19 - END OF NOTE Assessment/Plan (1) Acute respiratory distress syndrome in adult Current Visit: Yes Status: Acute Assessment & Plan: Chief Complaint Diagnosis c/o cough and shortness of breath for 2-3 days Allergies Allergy/AdvReac Type Severity Reaction Status Date / Time Sulfa (Sulfonamide Allergy Verified 11/29/18 15:32 Antibiotics) Vital Signs (Last 24 hours) Temp Pulse Resp BP Pulse Ox 11/17/19 10:32 95 H 33 H 100 11/17/19 07:37 97.7 F 93 H 22 116/93 96 11/17/19 05:48 94 H 33 H 96 11/17/19 04:55 98.9 F 102 H 22 143/69 94 L 11/17/19 03:17 95 11/17/19 00:51 98.5 F 84 29 H 115/66 98 11/16/19 21:00 98.0 F 86 28 H 100/66 95 11/16/19 19:21 27 L 90 L 11/16/19 16:14 98.0 F 98 H 22 134/91 85 L 11/16/19 14:39 89 26 H 90 L 11/16/19 13:28 90 L Current Medications Generic Name Dose Route Start Last Admin Trade Name Freq PRN Reason Stop Dose Admin Hydrocodone Bitart/Acetaminophen 1 tab 11/13/19 23:37 Dwight 10/325 Mg Tablet PO 11/18/19 23:36 Q4H PRN PRN PAIN Albuterol/Ipratropium 3 ml 11/14/19 07:59 11/15/19 23:31 Duoneb 0.5-3 Mg/3 Ml Neb IH 12/14/19 07:58 3 ml Q4H PRN PRN Administration Albuterol/Ipratropium 3 ml 11/16/19 11:00 11/17/19 10:22 Duoneb 0.5-3 Mg/3 Ml Neb IH 12/16/19 10:59 3 ml QIDRT ROBSON Administration Allopurinol 300 mg 11/14/19 10:00 11/17/19 09:48 Zyloprim 300 Mg PO 12/14/19 09:59 300 mg DAILY ROBSON Administration Ascorbic Acid 1,000 mg 11/14/19 10:00 11/17/19 12:13 Vitamin C 500 Mg PO 12/14/19 09:59 1,000 mg BID ROBSON Administration Aspirin 81 mg 11/13/19 22:00 11/16/19 21:50 Ecotrin 81 Mg PO 12/13/19 21:59 81 mg HS ROBSON Administration Benzonatate 100 mg 11/14/19 07:52 Tessalon Perles 100 Mg PO 12/14/19 07:51 UD PRN COUGH Budesonide 0.5 mg 11/16/19 19:00 11/17/19 05:48 Pulmicort 0.5 Mg/2 Ml Respules IH 12/16/19 18:59 0.5 mg BIDRT ROBSON Administration Bumetanide 1 mg 11/15/19 10:00 11/17/19 08:50 Bumex 1 Mg IV 12/15/19 09:59 1 mg Q12HT ROBSON Administration Diltiazem HCl 30 mg 11/15/19 10:00 11/17/19 12:13 Cardizem 30 Mg PO 12/15/19 09:59 30 mg Q6H RO[facility]ON Administration Dronedarone 200 mg 11/13/19 22:00 11/17/19 08:49 Multaq 400 Mg PO 12/13/19 21:59 200 mg BID ROBSON Administration Duloxetine HCl 30 mg 11/13/19 22:00 11/16/19 21:49 Cymbalta 30 Mg Capsule PO 12/13/19 21:59 30 mg HS ROBSON Administration Ergocalciferol 50,000 unit 11/20/19 07:59 Vitamin D2 PO 12/20/19 07:58 Mo ROBSON Ferrous Sulfate 325 mg 11/13/19 22:00 11/17/19 09:49 Feosol 325 Mg PO 12/13/19 21:59 325 mg TID RO[facility] Administration Folic Acid 1 mg 11/14/19 10:00 11/17/19 09:49 Folate 1 Mg PO 12/14/19 09:59 1 mg DAILY ROBSON Administration Furosemide 20 mg 11/17/19 12:34 Lasix 20 Mg/2 Ml IV 12/17/19 12:33 BETWEEN UNITS PRN between units of PRBC Gabapentin 600 mg 11/13/19 22:00 11/16/19 21:49 Neurontin 300 Mg PO 12/13/19 21:59 600 mg HS ROBSON Administration Gabapentin 300 mg 11/14/19 10:00 11/17/19 09:48 Neurontin 300 Mg PO 12/14/19 09:59 300 mg DAILY ROBSON Administration Glimepiride 8 mg 11/14/19 10:00 11/17/19 12:12 Amaryl 4 Mg PO 12/14/19 09:59 8 mg DAILY ROBSON Administration Glucagon 1 mg 11/14/19 08:00 Glucagen 1 Mg IM 12/14/19 07:59 PRN PRN Heparin Sodium (Beef Lung) 500 units 11/14/19 05:51 11/17/19 04:53 Heparin Lock Flush 100 Units/Ml 5ml Syringe PICC 12/14/19 05:50 500 units PRN PRN Administration IV Triple Lumen/right EJ Azithromycin 500 mg in 250 mls @ 250 mls/hr 11/14/19 12:00 11/17/19 09:46 Zithromax 500 Mg/ 250 Ml Nacl Premix IV 12/14/19 11:59 250 mls/hr Q24H10 ROBSON Administration Ceftriaxone Sodium/Dextrose 1 g in 50 mls @ 100 mls/hr 11/14/19 11:00 08:53 Rocephin 1 Gm-D5w 50 Ml Bag IV 12/14/19 10:59 100 mls/hr Q24H10 ROBSON Administration Sodium Chloride 500 mls @ 50 mls/hr 11/17/19 11:00 Sodium Chloride 0.9% 500 Ml IV 12/17/19 10:59 .Q10H RO[facility] Insulin Aspart 0 unit 11/15/19 09:36 11/17/19 12:14 Novolog Insulin SQ 12/15/19 09:35 6 unit UD PRN Administration HYPERGLYCEMIA Insulin Glargine 10 unit 11/16/19 08:00 11/17/19 08:19 Lantus Insulin SQ 12/16/19 07:59 10 unit AMINSULIN ROBSON Administration Methylprednisolone Sodium Succinate 125 mg 11/14/19 14:00 11/17/19 04:53 Solu-Medrol 125 Mg IV 12/14/19 13:59 125 mg Q8HT ROBSON Administration Miscellaneous Information 0 each 11/14/19 08:15 Medication Intervention MC 12/14/19 08:14 .RN TO CHECK WITH PT ROBSON Montelukast Sodium 10 mg 11/13/19 22:00 11/16/19 21:50 Singulair 10 Mg PO 12/13/19 21:59 10 mg HS ROBSON Administration Ondansetron HCl 4 mg 11/14/19 07:52 Zofran Odt 4 Mg PO 12/14/19 07:51 Q6H PRN PRN VOMITING Pantoprazole Sodium 40 mg 11/14/19 12:00 11/17/19 12:13 Protonix 40mg Tablet PO 12/14/19 11:59 40 mg LUNCH ROBSON Administration Pioglitazone HCl 30 mg 11/14/19 12:00 11/17/19 12:12 Actos 30 Mg PO 12/14/19 11:59 30 mg LUNCH RO[facility] Administration Sodium Chloride 10 ml 11/14/19 05:52 11/17/19 04:53 Sodium Chloride 0.9% 10 Ml Flush Syringe IV 12/14/19 05:51 10 ml PRN PRN Administration IV triple lumen/Right EJ Tamsulosin HCl 0.4 mg 11/14/19 10:00 11/17/19 12:13 Flomax 0.4 Mg PO 12/14/19 09:59 0.4 mg DAILY ROBSON Administration Discontinued Medications Generic Name Dose Route Start Last Admin Trade Name Freq PRN Reason Stop Dose Admin Albuterol/Ipratropium 3 ml 11/13/19 12:24 11/13/19 12:33 Duoneb 0.5-3 Mg/3 Ml Neb IH 11/13/19 12:25 3 ml STAT ONE Administration Albuterol/Ipratropium Confirm 11/13/19 12:31 Duoneb 0.5-3 Mg/3 Ml Neb Administered 11/13/19 12:32 Dose 3 ml IH .STK-MED ONE Apixaban 2.5 mg 11/13/19 22:00 11/14/19 00:25 Eliquis 2.5 Mg Tablet PO 11/13/19 22:01 2.5 mg BID ONE Administration Apixaban 2.5 mg 11/14/19 10:00 11/16/19 21:50 Eliquis 2.5 Mg Tablet PO 12/14/19 09:59 2.5 mg BID ROBSON Administration Ascorbic Acid 1,000 mg 11/13/19 22:00 11/14/19 00:26 Vitamin C 500 Mg PO 11/13/19 22:01 1,000 mg BID ONE Administration Azithromycin 500 mg 11/13/19 13:38 11/13/19 14:18 Zithromax 250 Mg Tablet PO 11/13/19 13:39 500 mg STAT ONE Administration Azithromycin Confirm 11/13/19 14:06 Zithromax 250 Mg Tablet Administered 11/13/19 14:07 Dose 500 mg .ROUTE .STK-MED ONE Bumetanide 1 mg 11/14/19 22:00 11/14/19 22:25 Bumex 1 Mg PO 11/14/19 22:01 1 mg BID DIURETIC ONE Administration Bumetanide Confirm 11/14/19 00:16 Bumex 1 Mg Administered 11/14/19 00:17 Dose 1 mg .ROUTE .STK-MED ONE Ceftriaxone Sodium 1,000 mg 11/13/19 13:38 11/13/19 14:18 Rocephin 1000 Mg Inj IM 11/13/19 13:39 1,000 mg STAT ONE Administration Ceftriaxone Sodium Confirm 11/13/19 14:06 Rocephin 1000 Mg Inj Administered 11/13/19 14:07 Dose 1,000 mg .ROUTE .STK-MED ONE Furosemide 20 mg 11/14/19 12:27 11/13/19 18:12 Lasix 20 Mg/2 Ml IV 11/14/19 12:28 20 mg STAT ONE Administration Furosemide Confirm 11/13/19 12:32 Lasix 40 Mg/4 Ml Administered 11/13/19 12:33 Dose 40 mg .ROUTE .STK-MED ONE Heparin Sodium (Beef Lung) Confirm 11/13/19 21:31 Heparin Lock Flush 100 Units/Ml 5ml Syringe Administered 11/13/19 21:32 Dose 500 units .ROUTE .STK-MED ONE Ceftriaxone Sodium/Dextrose 1 g in 50 mls @ 100 mls/hr 11/13/19 12:24 18:02 Rocephin 1 Gm-D5w 50 Ml Bag IV 11/13/19 12:53 Not Given STAT STA Azithromycin 500 mg in 250 mls @ 250 mls/hr 11/13/19 12:24 11/13/19 18:04 Zithromax 500 Mg/ 250 Ml Nacl Premix IV 11/13/19 13:23 Not Given STAT STA Sodium Chloride 1,000 mls @ 999 mls/hr 11/13/19 12:32 11/13/19 19:07 Sodium Chloride 0.9% 1000 Ml IV 11/13/19 13:32 Infused .Q1H1M STA Infusion Ceftriaxone Sodium/Dextrose Confirm 11/13/19 12:32 Rocephin 1 Gm-D5w 50 Ml Bag Administered 11/13/19 12:33 Dose 1 g in 50 mls @ ud IV .STK-MED ONE Sodium Chloride Confirm 11/13/19 12:39 Sodium Chloride 0.9% 1000 Ml Administered 11/13/19 12:40 Dose 1,000 mls @ ud .ROUTE .STK-MED ONE Insulin Glargine 10 unit 11/15/19 10:00 11/15/19 10:09 Lantus Insulin SQ 11/15/19 10:01 10 unit NOW ONE Administration Lidocaine HCl Confirm 11/13/19 14:06 Xylocaine 1% Hcl 20 Ml Mdv Administered 11/13/19 14:07 Dose 3 ml .ROUTE .STK-MED ONE Methylprednisolone Sodium Succinate 125 mg 11/13/19 12:25 11/13/19 18:03 Solu-Medrol 125 Mg IV 11/13/19 12:26 125 mg STAT ONE Administration Methylprednisolone Sodium Succinate Confirm 11/13/19 12:32 Solu-Medrol 125 Mg Administered 11/13/19 12:33 Dose 125 mg .ROUTE .STK-MED ONE Non-Formulary Medication 1 each 11/14/19 10:45 Pharmacy Dosing Request 12/14/19 10:44 UD ROBSON Intake & Output (Last 24 hours) 11/15/19 11/16/19 11/17/19 11/18/19 11:59 11:59 11:59 11:59 Intake Total 1380 200 860 Output Total 1050 1200 1300 Balance 330 -1000 -440 Weight 127.6 kg 126.1 kg 126 kg Laboratory Results (Last 24 hours) 11/17/19 11/17/19 11/17/19 05:00 04:30 04:30 WBC 7.5 RBC 2.16 L Hgb 7.1 L D Hct 23.3 L MCV 107.9 H MCH 32.9 H MCHC 30.5 L RDW 14.1 H Plt Count 126 L MPV 10.3 H Gran % 94.3 H Eos # (Auto) 0.01 Absolute Lymphs (auto) 0.15 L Absolute Monos (auto) 0.27 Lymphocytes % 2.0 L Monocytes % 3.6 Eosinophils % 0.1 Basophils % 0.0 Absolute Granulocytes 7.09 H Basophils # 0 Puncture Site pCO2 pO2 Base Excess O2 Saturation ABG pH ABG HCO3 ABG O2 Sat (Measured) Félix Test A-a Gradient a/A Ratio Hemoglobin Carboxyhemoglobin Methemoglobin Potassium 4.0 Temperature POC O2 Flow Rate Sodium 140 Chloride 98 Carbon Dioxide 38 H Anion Gap 8.5 BUN 57 H Creatinine 1.73 H Estimated GFR 40.8 Glucose 303 H Calcium 8.5 Total Bilirubin 0.90 AST 23 ALT 12 Alkaline Phosphatase 63 NT-Pro-B Natriuret Pep 3150 H Serum Total Protein 6.7 Albumin 3.1 L Slides for Path Review 11/16/19 11/16/19 Unknown 16:07 WBC 9.3 RBC 2.73 L Hgb 8.9 L Hct 29.3 L MCV 107.3 H MCH 32.6 H MCHC 30.4 L RDW 14.2 H Plt Count 132 L MPV 10.0 H Gran % 93.5 H Eos # (Auto) 0.01 Absolute Lymphs (auto) 0.17 L Absolute Monos (auto) 0.42 Lymphocytes % 1.8 L Monocytes % 4.5 Eosinophils % 0.1 Basophils % 0.1 Absolute Granulocytes 8.67 H Basophils # 0.01 Puncture Site LEFT RADIAL pCO2 58 H pO2 45 L* Base Excess 12.4 H O2 Saturation 85.2 L ABG pH 7.43 ABG HCO3 38.5 H* ABG O2 Sat (Measured) 88 L Félix Test YES A-a Gradient 560 a/A Ratio 0.07 Hemoglobin 9.8 Carboxyhemoglobin 2.1 Methemoglobin 0.9 L Potassium 3.4 L Temperature 37.0 POC O2 Flow Rate 95 Sodium Chloride Carbon Dioxide Anion Gap BUN Creatinine Estimated GFR Glucose Calcium Total Bilirubin AST ALT Alkaline Phosphatase NT-Pro-B Natriuret Pep Serum Total Protein Albumin Slides for Path Review YES Orders (Last 24 hours) Category Date Time Status Change Code Status [Code Status Change Order] ROUTINE Care 11/17/19 10:57 Active CHEST 1 VIEW (PORTABLE) Routine Exams 11/17/19 08:32 Completed ABG [ARTERIAL BLOOD GASES] Stat Lab 11/16/19 16:07 Completed BLOOD COMPONENT REQUEST Routine Lab 11/17/19 12:00 Received BNP [NT PRO BNP] Routine Lab 11/17/19 05:00 Completed CBC Routine Lab 11/18/19 05:00 Ordered CBC W DIFF AM.LAB Lab 11/17/19 04:30 Completed CMP AM.LAB Lab 11/17/19 04:30 Completed CMP Routine Lab 11/18/19 05:00 Ordered TYPE AND SCREEN Routine Lab 11/17/19 12:00 Received Budesonide 0.5 mg/2 ml [Pulmicort 0.5 mg/2 ml Med 11/16/19 19:00 Active Respules] 0.5 mg IH BIDRT Ergocalciferol (Vitamin D2) [Vitamin D2] Med 11/20/19 07:59 Active 50,000 unit PO Mo Furosemide 20 mg/2 ml [Lasix 20 MG/2 ML] Med 11/17/19 12:34 Active 20 mg IV BETWEEN UNITS PRN NaCl 0.9% 500 ml [Sodium Chloride 0.9% 500 ML] 500 ml Med 11/17/19 11:00 Active IV 50 mls/hr BiPap/CPAP ROUTINE RT 11/16/19 21:00 Active Patient Care Notes (Last 24 hours) 11/17/19 09:12 Nursing Note by Joselyn Sterling Noted pt is coughing water red sputum. Pt states he wants to be a full code. Pt would like to eat, understands he may have to be intubated if bi[-pap removed to eat. Not happy he cannot eat,but understands it. Pt's family has been updated this am,pt's daughter,Vivi. Initialized on 11/17/19 09:12 - END OF NOTE 11/17/19 05:29 Nursing Note by Danae Can Patient urine in catheter dark ghanshyam with some floating blood clots. Initialized on 11/17/19 05:29 - END OF NOTE 11/17/19 04:25 Nursing Note by Danae Can Patient awake and hungry, has not eaten since lunch time yesterday. Respiratory set up patient to be put back on hi-flow oxygen by nasal cannula to eat. Hi flow @ 38%, patient saturation started dropping immediately. Encouraged slow deep breathing through nose, patient breathing rapidly and saturation dropped to 65% with pt grabbing at staff for help. Patient placed back on Bipap and staff stayed with him until calm. Initialized on 11/17/19 04:25 - END OF NOTE 11/16/19 16:20 (created 11/16/19 17:19) Respiratory Note by Diamond Hickey PT'S O2 SAT DROPPING TO 85% WHILE SLEEPING ON HIGH FLOW. PT CHANGED OVER TO CPAP PER HOME USE DUE TO PT SLEEPING BUT O2 SAT DROPPED QUICKLY TO 64%. PT WAS THEN PLACED BACK ON HIGH FLOW WITH SETTINGS INCREASED TO 55L WITH 95% FIO2. O2 SLOWLY INCREASED TO 90%. ABG DRAWN AND RESULTS CALLED TO DR. DELEON. PT PLACED ON BIPAP (28/04 RR12 100%) PER DR. DELEON ORDER BASED ON ABG RESULTS. PT'S O2 SAT QUICKLY INCREASED TO 94-96% WITH BIPAP. PT TOLERATING WELL. AND DAUGHTER AT BEDSIDE. Initialized on 11/16/19 17:19 - END OF NOTE 11/16/19 16:10 Nursing Note by Joselyn Sterling Pt Spo2 85% when he went to sleep;continue to drop while RT attempts of C-pap. Pt wanting to sleep. Spo2 @ 88% at this time. pt's Daughter, Vivi updated. Pt' s spouse at bedside. Pt resumed to sleeping after ABG drawn. Diamond with RT calling Dr Deleon with ABG results. Initialized on 11/16/19 16:10 - END OF NOTE Code(s): J80 - ACUTE RESPIRATORY DISTRESS SYNDROME (2) Pneumonia Current Visit: Yes Status: Acute Qualifiers: Pneumonia type: due to unspecified organism Laterality: bilateral Lung location: unspecified part of lung Qualified Code(s): J18.9 - Pneumonia, unspecified organism Code(s): J18.9 - PNEUMONIA, UNSPECIFIED ORGANISM (3) Type 2 diabetes mellitus Current Visit: Yes Status: Acute Qualifiers: Diabetes mellitus intermission coordinator insulin use: with fpc use Diabetes mellitus complication status: with circulatory complication Diabetes mellitus complication detail: with other circulatory complications Qualified Code(s): E11.59 - Type 2 diabetes mellitus with other circulatory complications; Z79.4 - termite inspector (current) use of insulin (4) Chronic obstructive pulmonary disease Current Visit: Yes Status: Acute Qualifiers: COPD type: COPD with acute lower respiratory infection Qualified Code(s): J44.0 - Chronic obstructive pulmonary disease with (acute) lower respiratory infection (5) Interstitial lung disease Current Visit: Yes Status: Chronic Code(s): J84.9 - INTERSTITIAL PULMONARY DISEASE, UNSPECIFIED
[2019-11-17 13:26] LABS: ABO TYPING O; Antibody Screen NEGATIVE (NEGATIVE); RH TYPING POSITIVE
[2019-11-17] MEDS: Sodium Chloride 0.9% 500 ML 500 ML IV SCH ×2 (13:57→17:52)
[2019-11-17] MEDS: ELIQUIS 2.5 MG TABLET PO SCH (14:34)
[2019-11-17] MEDS: ECOTRIN 81 MG PO SCH (22:01)
[2019-11-17] MEDS: Singulair 10 MG PO SCH (22:01)
[2019-11-17] MEDS: Cymbalta 30 MG Capsule PO SCH (22:02)
[2019-11-18] MEDS: Cardizem 30 MG PO SCH ×4 (03:59→23:13)
[2019-11-18] MEDS: solu-MEDROL 125 MG IV SCH ×3 (05:27→22:29)
[2019-11-18 06:10] LABS: Hematocrit 33.6 % (42-50); Hemoglobin 10.5 gm/dl (12.5-18.0); Mean Cell Volume 101.8 fl (78-100); Mean Corpuscular Hemoglobin 31.8 pg (26-32); Mean Corpuscular Hgb Concent. 31.3 g/dl (32-36); Mean Platelet Volume 10.4 fl (7.5-11.0); Platelet Count 117 K/mm3 (150-450); Red Cell Distribution Width 17.4 % (11.5-14.0); White Blood Count 7.9 K/mm3 (4.0-10.5)
[2019-11-18 06:20] LABS: ALBUMIN 3.2 g/dL (3.5-5.0); ANION GAP 10.3 MEQ/L (5-15); BILIRUBIN,TOTAL 0.8 mg/dL (0.2-1.3); Calcium 8.5 mg/dL (8.4-10.2); Creatinine 1 1.86 mg/dL (0.66-1.25); Potassium 3.6 mmol/L (3.5-5.1); Total Protein 6.7 g/dL (6.3-8.2)
[2019-11-18] MEDS: DUONEB 0.5-3 MG/3 ml Neb IH SCH ×4 (07:29→19:40)
[2019-11-18] MEDS: PULMICORT 0.5 MG/2 ML RESPULES IH SCH ×2 (07:30→19:38)
[2019-11-18] MEDS: Lantus Insulin SQ SCH (08:04)
[2019-11-18] MEDS: NovoLOG Insulin SQ PRN ×3 (08:04→22:48)
--- NOTE | 2019-11-18 09:01 | PCM.NOTE ---
Date and Time: 11/18/19 0859 Subjective Assessment: doing better, still on BiPap - Review of Systems Constitutional: No Fever, No Chills Eyes: No Symptoms Ears, Nose, & Throat: No Symptoms Respiratory: Orthopnea, Short Of Breath, No Cough Cardiac: No Chest Pain, No Edema, No Syncope Abdominal/Gastrointestinal: No Abdominal Pain, No Nausea, No Vomiting, No Diarrhea Genitourinary Symptoms: No Dysuria Musculoskeletal: No Back Pain, No Neck Pain Skin: No Rash Neurological: No Dizziness, No Focal Weakness, No Sensory Changes Psychological: No Symptoms Endocrine: No Symptoms Hematologic/Lymphatic: No Symptoms Immunological/Allergic: No Symptoms Objective Exam General Appearance: moderate distress, alert Neurologic Exam: alert, oriented x 3, cooperative, normal mood/affect, No motor deficits Skin Exam: normal color, warm, dry Eye Exam: PERRL, EOMI, eyes nml inspection Ears, Nose, Throat Exam: normal ENT inspection, pharynx normal, moist mucous membranes Neck Exam: normal inspection, non-tender, supple, full range of motion Respiratory Exam: diminished breath sounds, prolonged expirations, crackles/ rales, rhonchi, wheezing, No respiratory distress Cardiovascular Exam: regular rate/rhythm, normal heart sounds Gastrointestinal/Abdomen Exam: soft, No tenderness, No mass Extremity Exam: normal inspection, normal range of motion Back Exam: normal inspection, normal range of motion, No CVA tenderness, No vertebral tenderness Male Genitalia Exam: deferred Rectal Exam: deferred OBJECTIVE DATA Vital Signs: Vital Signs - 24 hr Temp Pulse Resp BP Pulse Ox 11/18/19 07:48 98.7 F 97 H 33 H 157/85 94 L 11/18/19 07:46 95 H 30 H 94 L 11/18/19 04:10 99.0 F 96 H 32 H 161/81 93 L 11/18/19 01:00 98.2 F 96 H 29 H 134/71 94 L 11/17/19 21:00 98.2 F 94 H 28 H 134/67 96 11/17/19 19:50 91 H 28 H 94 L 11/17/19 16:48 97.9 F 86 22 140/66 95 11/17/19 14:32 89 25 H 95 11/17/19 13:45 97.7 F 88 22 140/66 95 11/17/19 10:32 95 H 33 H 100 Oxygen-Last 24 hours O2 Percentage 100% Pain Assessment - Last Documented Pain Intensity 0 Pain Scale Used 0-10 Pain Scale Intake and Output: Intake & Output 11/15/19 11/16/19 11/17/19 11/18/19 11:59 11:59 11:59 11:59 Intake Total 1380 890 019 2763 Output Total 1050 1200 1300 900 Balance 330 -1000 -440 143 Weight 127.6 kg 126.1 kg 126 kg 128 kg Lab Results: Accuchecks Date 11/17/19 Date 11/17/19 Date 11/17/19 Time 22:00 Time 16:30 Time 11:30 Accucheck Value: 285 Accucheck Value: 212 Accucheck Value: 319 Lab Results-Last 24 Hours 11/17/19 11/17/19 11/17/19 Range/Units 05:00 11:50 11:50 WBC (4.0-10.5) K/mm3 RBC (4.1-5.6) M/mm3 Hgb (12.5-18.0) gm/dl Hct (42-50) % MCV (78-100) fl MCH (26-32) pg MCHC (32-36) g/dl RDW (11.5-14.0) % Plt Count (150-450) K/mm3 MPV (7.5-11.0) fl Sodium (137-145) mmol/L Potassium (3.5-5.1) mmol/L Chloride (98-107) mmol/L Carbon Dioxide (22-30) mmol/L Anion Gap (5-15) MEQ/L BUN (9-20) mg/dL Creatinine (0.66-1.25) mg/dL Estimated GFR ML/MIN Glucose (74-106) mg/dL Calcium (8.4-10.2) mg/dL Total Bilirubin (0.2-1.3) mg/dL AST (17-59) U/L ALT (0-50) U/L Alkaline Phosphatase (38-126) U/L NT-Pro-B Natriuret Pep 3150 H (0-1800) pg/mL Serum Total Protein (6.3-8.2) g/dL Albumin (3.5-5.0) g/dL ABO Group Rh Factor Antibody Screen (NEGATIVE) Crossmatch COMPATIBLE COMPATIBLE (COMPATIBLE) 11/17/19 11/18/19 11/18/19 Range/Units 12:00 05:15 05:15 WBC 7.9 (4.0-10.5) K/mm3 RBC 3.30 L (4.1-5.6) M/mm3 Hgb 10.5 L D (12.5-18.0) gm/dl Hct 33.6 L (42-50) % MCV 101.8 H (78-100) fl MCH 31.8 (26-32) pg MCHC 31.3 L (32-36) g/dl RDW 17.4 H (11.5-14.0) % Plt Count 117 L (150-450) K/mm3 MPV 10.4 H (7.5-11.0) fl Sodium 141 (137-145) mmol/L Potassium 3.6 (3.5-5.1) mmol/L Chloride 96 L (98-107) mmol/L Carbon Dioxide 39 H (22-30) mmol/L Anion Gap 10.3 (5-15) MEQ/L BUN 62 H (9-20) mg/dL Creatinine 1.86 H (0.66-1.25) mg/dL Estimated GFR 37.5 ML/MIN Glucose 387 H (74-106) mg/dL Calcium 8.5 (8.4-10.2) mg/dL Total Bilirubin 0.80 (0.2-1.3) mg/dL AST 18 (17-59) U/L ALT 13 (0-50) U/L Alkaline Phosphatase 79 (38-126) U/L NT-Pro-B Natriuret Pep (0-1800) pg/mL Serum Total Protein 6.7 (6.3-8.2) g/dL Albumin 3.2 L (3.5-5.0) g/dL ABO Group O Rh Factor POSITIVE Antibody Screen NEGATIVE (NEGATIVE) Crossmatch (COMPATIBLE) Radiology Exams: Radiology Procedures Category Date Time Status CHEST 1 VIEW (PORTABLE) Routine Exams 11/17/19 08:32 Completed ECHO W/2D AND DOPPLER [US] Routine Exams 11/16/19 08:00 Taken Multi-Disciplinary Progress Notes: Multi-Disciplinary Progress Notes 11/18/19 08:02 Respiratory Note by Lyndsey Carr 0800 TAKEN OFF BIPAP PLACED ON HIFLOW 40L 100% . PT WANTED TO TRY AND EAT. STAYED OFF 0800 TO 0825. STAYED IN ROOM WITH PT UP TO ENTIRE TIME WHILE ON HIFLOW, SPO2 DROPPED TO 67% AT ONE TIME BUT STAYED AROUND 75-77. UP TO 85% POST 4MIN. AT BEDSIDE Initialized on 11/18/19 08:02 - END OF NOTE 11/17/19 17:15 (created 11/17/19 18:12) Respiratory Note by Diamond Hickey PT CHANGED OVER TO HIGH FLOW (50L, 95% FIO2) TO EAT DINNER AT THIS TIME. PT'S O2 SAT 88-89% WHILE ON HIGH FLOW. PT TOLERATED WELL. PT WAS CHANGED BACK OVER TO BIPAP AFTER EATING. PT'S O2 SAT DID DROP TO 85% RIGHT BEFORE CHANGING BACK OVER TO BIPAP BUT THEY QUICKLY RECOVERED TO 93% ONCE BACK ON THE BIPAP. FAMILY AND NURSE AT BEDSIDE. Initialized on 11/17/19 18:12 - END OF NOTE 11/17/19 14:07 Respiratory Note by Diamond Hickey PT CHANGED OVER TO HIGH FLOW (50L, 95% FIO2) TO EAT AT THIS TIME. PT'S O2 SAT 90 -92% WHILE ON HIGH FLOW. PT TOLERATED WELL. PT WAS CHANGED BACK OVER TO BIPAP AFTER EATING. PT'S O2 SAT DID DROP TO 87% RIGHT BEFORE CHANGING BACK OVER TO BIPAP BUT THEY QUICKLY RECOVERED TO 95% ONCE BACK ON THE BIPAP. FAMILY AND NURSE AT BEDSIDE. Initialized on 11/17/19 14:07 - END OF NOTE Assessment/Plan (1) Acute respiratory distress syndrome in adult Current Visit: Yes Status: Acute Assessment & Plan: Last Vital Signs Temp 98.7 F 11/18/19 07:48 Pulse 97 H 11/18/19 07:48 Resp 33 H 11/18/19 07:48 BP 157/85 11/18/19 07:48 Pulse Ox 94 L 11/18/19 07:48 Allergies Sulfa (Sulfonamide Antibiotics) Allergy (Verified 11/29/18 15:32) Active Medications Hydrocodone Bitart/Acetaminophen ([place] 10/325 Mg Tablet) 1 tab PO Q4H PRN PRN PRN Reason: PAIN Stop: 11/18/19 23:36 Albuterol/Ipratropium (Duoneb 0.5-3 Mg/3 Ml Neb) 3 ml IH Q4H PRN PRN Stop: 12/14/19 07:58 Last Admin: 11/15/19 23:31 Dose: 3 ml Albuterol/Ipratropium (Duoneb 0.5-3 Mg/3 Ml Neb) 3 ml IH QIDRT [facility] Stop: 12/16/19 10:59 Last Admin: 11/18/19 07:29 Dose: 3 ml Allopurinol (Zyloprim 300 Mg) 300 mg PO DAILY [facility] Stop: 12/14/19 09:59 Last Admin: 11/17/19 09:48 Dose: 300 mg Ascorbic Acid (Vitamin C 500 Mg) 1,000 mg PO BID [facility] Stop: 12/14/19 09:59 Last Admin: 11/17/19 22:02 Dose: 1,000 mg Aspirin (Ecotrin 81 Mg) 81 mg PO HS [facility] Stop: 12/13/19 21:59 Last Admin: 11/17/19 22:01 Dose: 81 mg Benzonatate (Tessalon Perles 100 Mg) 100 mg PO UD PRN PRN Reason: COUGH Stop: 12/14/19 07:51 Budesonide (Pulmicort 0.5 Mg/2 Ml Respules) 0.5 mg IH BIDRT [facility] Stop: 12/16/19 18:59 Last Admin: 11/18/19 07:30 Dose: 0.5 mg Bumetanide (Bumex 1 Mg) 1 mg IV Q12HT [facility] Stop: 12/15/19 09:59 Last Admin: 11/17/19 22:01 Dose: 1 mg Diltiazem HCl (Cardizem 30 Mg) 30 mg PO Q6H [facility] Stop: 12/15/19 09:59 Last Admin: 11/18/19 03:59 Dose: 30 mg Dronedarone (Multaq 400 Mg) 200 mg PO BID [facility] Stop: 12/13/19 21:59 Last Admin: 11/17/19 22:01 Dose: 200 mg Duloxetine HCl (Cymbalta 30 Mg Capsule) 30 mg PO HS [facility] Stop: 12/13/19 21:59 Last Admin: 11/17/19 22:02 Dose: 30 mg Ergocalciferol (Vitamin D2) 50,000 unit PO Mo [facility] Stop: 12/20/19 07:58 Ferrous Sulfate (Feosol 325 Mg) 325 mg PO TID [facility] Stop: 12/13/19 21:59 Last Admin: 11/17/19 22:01 Dose: 325 mg Folic Acid (Folate 1 Mg) 1 mg PO DAILY [facility] Stop: 12/14/19 09:59 Last Admin: 11/17/19 09:49 Dose: 1 mg Furosemide (Lasix 20 Mg/2 Ml) 20 mg IV BETWEEN UNITS PRN PRN Reason: between units of PRBC Stop: 12/17/19 12:33 Last Admin: 11/17/19 17:51 Dose: 20 mg Gabapentin (Neurontin 300 Mg) 600 mg PO HS [facility] Stop: 12/13/19 21:59 Last Admin: 11/17/19 22:01 Dose: 600 mg Gabapentin (Neurontin 300 Mg) 300 mg PO DAILY [facility] Stop: 12/14/19 09:59 Last Admin: 11/17/19 09:48 Dose: 300 mg Glimepiride (Amaryl 4 Mg) 8 mg PO DAILY [facility] Stop: 12/14/19 09:59 Last Admin: 11/17/19 12:12 Dose: 8 mg Glucagon (Glucagen 1 Mg) 1 mg IM PRN PRN Stop: 12/14/19 07:59 Heparin Sodium (Beef Lung) (Heparin Lock Flush 100 Units/Ml 5ml Syringe) 500 units PICC PRN PRN PRN Reason: IV Triple Lumen/right EJ Stop: 12/14/19 05:50 Last Admin: 11/17/19 04:53 Dose: 500 units Azithromycin (Zithromax 500 Mg/ 250 Ml Nacl Premix) 500 mg in 250 mls @ 250 mls /hr IV Q24H10 [facility] Stop: 12/14/19 11:59 Last Admin: 11/17/19 09:46 Dose: 250 mls/hr Ceftriaxone Sodium/Dextrose (Rocephin 1 Gm-D5w 50 Ml Bag) 1 g in 50 mls @ 100 mls/hr IV Q24H10 [facility] Stop: 12/14/19 10:59 Last Admin: 11/17/19 08:53 Dose: 100 mls/hr Sodium Chloride (Sodium Chloride 0.9% 500 Ml) 500 mls @ 50 mls/hr IV .Q10H [facility] Stop: 12/17/19 10:59 Last Admin: 11/17/19 17:52 Dose: 50 mls/hr Insulin Aspart (Novolog Insulin) 0 unit SQ UD PRN PRN Reason: HYPERGLYCEMIA Stop: 12/15/19 09:35 Last Admin: 11/18/19 08:04 Dose: 8 unit Insulin Glargine (Lantus Insulin) 10 unit SQ AMINSULIN [facility] Stop: 12/16/19 07:59 Last Admin: 11/18/19 08:04 Dose: 10 unit Methylprednisolone Sodium Succinate (Solu-Medrol 125 Mg) 125 mg IV Q8HT [facility] Stop: 12/14/19 13:59 Last Admin: 11/18/19 05:27 Dose: 125 mg Miscellaneous Information (Medication Intervention) 0 each MC .RN TO CHECK WITH PT [facility] Stop: 12/14/19 08:14 Montelukast Sodium (Singulair 10 Mg) 10 mg PO HS [facility] Stop: 12/13/19 21:59 Last Admin: 11/17/19 22:01 Dose: 10 mg Ondansetron HCl (Zofran Odt 4 Mg) 4 mg PO Q6H PRN PRN PRN Reason: VOMITING Stop: 12/14/19 07:51 Pantoprazole Sodium (Protonix 40mg Tablet) 40 mg PO LUNCH [facility] Stop: 12/14/19 11:59 Last Admin: 11/17/19 12:13 Dose: 40 mg Pioglitazone HCl (Actos 30 Mg) 30 mg PO LUNCH [facility] Stop: 12/14/19 11:59 Last Admin: 11/17/19 12:12 Dose: 30 mg Sodium Chloride (Sodium Chloride 0.9% 10 Ml Flush Syringe) 10 ml IV PRN PRN PRN Reason: IV triple lumen/Right EJ Stop: 12/14/19 05:51 Last Admin: 11/17/19 04:53 Dose: 10 ml Tamsulosin HCl (Flomax 0.4 Mg) 0.4 mg PO DAILY [facility] Stop: 12/14/19 09:59 Last Admin: 11/17/19 12:13 Dose: 0.4 mg Intake & Output 11/17/19 11/18/19 11:59 11:59 Intake Total 860 1043 Output Total 1300 900 Balance -440 143 Weight 126 kg 128 kg Orders 11/17/19 10:57 Change Code Status [Code Status Change Order] ROUTINE 11/17/19 11:00 NaCl 0.9% 500 ml [Sodium Chloride 0.9% 500 ML] 500 ml IV 50 mls/hr 11/17/19 12:34 Furosemide 20 mg/2 ml [Lasix 20 MG/2 ML] 20 mg IV BETWEEN UNITS PRN 11/20/19 07:59 Ergocalciferol (Vitamin D2) [Vitamin D2] 50,000 unit PO Mo Lab Tests 11/17/19 11/17/19 11/17/19 05:00 11:50 11:50 WBC RBC Hgb Hct MCV MCH MCHC RDW Plt Count MPV Sodium Potassium Chloride Carbon Dioxide Anion Gap BUN Creatinine Estimated GFR Glucose Calcium Total Bilirubin AST ALT Alkaline Phosphatase NT-Pro-B Natriuret Pep 3150 H Serum Total Protein Albumin ABO Group Rh Factor Antibody Screen Crossmatch COMPATIBLE COMPATIBLE 11/17/19 11/18/19 11/18/19 12:00 05:15 05:15 WBC 7.9 RBC 3.30 L Hgb 10.5 L D Hct 33.6 L MCV 101.8 H MCH 31.8 MCHC 31.3 L RDW 17.4 H Plt Count 117 L MPV 10.4 H Sodium 141 Potassium 3.6 Chloride 96 L Carbon Dioxide 39 H Anion Gap 10.3 BUN 62 H Creatinine 1.86 H Estimated GFR 37.5 Glucose 387 H Calcium 8.5 Total Bilirubin 0.80 AST 18 ALT 13 Alkaline Phosphatase 79 NT-Pro-B Natriuret Pep Serum Total Protein 6.7 Albumin 3.2 L ABO Group O Rh Factor POSITIVE Antibody Screen NEGATIVE Crossmatch Microbiology 11/13/19 17:45 Blood Blood Culture Gram Stain - Final Not Reportable 11/13/19 17:45 Blood Blood Culture - Final NO GROWTH Code(s): J80 - ACUTE RESPIRATORY DISTRESS SYNDROME (2) Pneumonia Current Visit: Yes Status: Acute Qualifiers: Pneumonia type: due to unspecified organism Laterality: bilateral Lung location: unspecified part of lung Qualified Code(s): J18.9 - Pneumonia, unspecified organism Code(s): J18.9 - PNEUMONIA, UNSPECIFIED ORGANISM (3) Type 2 diabetes mellitus Current Visit: Yes Status: Acute Qualifiers: Diabetes mellitus long term care phlebotomist insulin use: with long term care phlebotomist use Diabetes mellitus complication status: with circulatory complication Diabetes mellitus complication detail: with other circulatory complications Qualified Code(s): E11.59 - Type 2 diabetes mellitus with other circulatory complications; Z79.4 - penitentiary (current) use of insulin (4) Chronic obstructive pulmonary disease Current Visit: Yes Status: Acute Qualifiers: COPD type: COPD with acute lower respiratory infection Qualified Code(s): J44.0 - Chronic obstructive pulmonary disease with (acute) lower respiratory infection (5) Interstitial lung disease Current Visit: Yes Status: Chronic Code(s): J84.9 - INTERSTITIAL PULMONARY DISEASE, UNSPECIFIED
[2019-11-18] MEDS: ROCEPHIN 1 Gm-D5w 50 ml Bag** 1 G/50 ML IVPB IV SCH (09:19)
[2019-11-18] MEDS: AMARYL 4 MG PO SCH (09:20)
[2019-11-18] MEDS: Flomax 0.4 MG PO SCH (09:20)
[2019-11-18] MEDS: FEOSOL 325 MG PO SCH ×3 (09:20→23:14)
[2019-11-18] MEDS: BUMEX 1 MG IV SCH ×2 (09:20→22:31)
[2019-11-18] MEDS: FOLATE 1 MG PO SCH (09:20)
[2019-11-18] MEDS: ZYLOPRIM 300 MG PO SCH (09:21)
[2019-11-18] MEDS: Vitamin C 500 MG PO SCH ×3 (09:21→23:28)
[2019-11-18] MEDS: NEURONTIN 300 MG PO SCH ×2 (09:21→23:12)
[2019-11-18] MEDS: Multaq 400 MG PO SCH ×2 (09:21→23:12)
[2019-11-18] MEDS: Zithromax 500 MG/ 250 ML NaCl Premix 500 MG/250 ML IVPB IV SCH (10:14)
[2019-11-18] MEDS: Sodium Chloride 0.9% 10 ML FLUSH Syringe IV PRN ×2 (11:19→14:44)
[2019-11-18] MEDS: Protonix 40MG Tablet PO SCH (12:30)
[2019-11-18] MEDS: Actos 30 MG PO SCH (12:30)
[2019-11-18] MEDS: xanAX 0.25 MG PO SCH ×2 (16:34→23:13)
[2019-11-18] MEDS: Cymbalta 30 MG Capsule PO SCH (23:13)
[2019-11-18] MEDS: Singulair 10 MG PO SCH ×2 (23:14→23:28)
[2019-11-18] MEDS: ECOTRIN 81 MG PO SCH (23:14)
--- NOTE | 2019-11-19 06:03 | PCM.NOTE ---
Date and Time: 11/19/19601 Subjective Assessment: doing better - Review of Systems Constitutional: No Fever, No Chills Eyes: No Symptoms Ears, Nose, & Throat: No Symptoms Respiratory: Orthopnea, Short Of Breath, Wheezing, No Cough Cardiac: No Chest Pain, No Edema, No Syncope Abdominal/Gastrointestinal: No Abdominal Pain, No Nausea, No Vomiting, No Diarrhea Genitourinary Symptoms: No Dysuria Musculoskeletal: No Back Pain, No Neck Pain Skin: No Rash Neurological: No Dizziness, No Focal Weakness, No Sensory Changes Psychological: No Symptoms Endocrine: No Symptoms Hematologic/Lymphatic: No Symptoms Immunological/Allergic: No Symptoms Objective Exam General Appearance: no apparent distress, alert Neurologic Exam: alert, oriented x 3, cooperative, normal mood/affect, nml cerebellar function, sensation nml, No motor deficits Skin Exam: normal color, warm, dry Eye Exam: PERRL, EOMI, eyes nml inspection Ears, Nose, Throat Exam: normal ENT inspection, pharynx normal, moist mucous membranes Neck Exam: normal inspection, non-tender, supple, full range of motion Respiratory Exam: diminished breath sounds, crackles/rales, wheezing, No respiratory distress Cardiovascular Exam: regular rate/rhythm, normal heart sounds Gastrointestinal/Abdomen Exam: soft, No tenderness, No mass Extremity Exam: normal inspection, normal range of motion Back Exam: normal inspection, normal range of motion, No CVA tenderness, No vertebral tenderness Male Genitalia Exam: deferred Rectal Exam: deferred OBJECTIVE DATA Vital Signs: Vital Signs - 24 hr Temp Pulse Resp BP Pulse Ox 11/19/19 04:00 97.7 F 104 H 38 H 139/67 92 L 11/18/19 23:47 98.5 F 80 22 136/74 92 L 11/18/19 20:10 98.3 F 100 H 21 125/59 94 L 11/18/19 19:42 100 H 21 94 L 11/18/19 16:37 98.5 F 91 H 29 H 128/61 92 L 11/18/19 15:39 89 33 H 89 L 11/18/19 12:40 98.7 F 95 H 42 H 145/77 91 L 11/18/19 11:18 99 H 36 H 90 L 11/18/19 07:48 98.7 F 97 H 33 H 157/85 94 L 11/18/19 07:46 95 H 30 H 94 L Oxygen-Last 24 hours O2 Percentage 100% O2 Percentage 100% O2 Percentage 100% O2 Percentage 100% O2 Percentage 100% O2 Percentage 100% Pain Assessment - Last Documented Pain Intensity 0 Pain Scale Used 0-10 Pain Scale Intake and Output: Intake & Output 11/16/19 11/17/19 11/18/19 11/19/19 11:59 11:59 11:59 11:59 Intake Total 331 134 2333 400 Output Total 1200 5552 937 8034 Balance -1000 -440 143 -950 Weight 126.1 kg 126 kg 128 kg Lab Results: Accuchecks Date 11/18/19 Time 22:00 Accucheck Value: 343 Accucheck Value: 231 Accucheck Value: 376 Accucheck Value: 387 Lab Results-Last 24 Hours 11/18/19 11/18/19 Range/Units 05:15 05:15 WBC 7.9 (4.0-10.5) K/mm3 RBC 3.30 L (4.1-5.6) M/mm3 Hgb 10.5 L D (12.5-18.0) gm/dl Hct 33.6 L (42-50) % MCV 101.8 H (78-100) fl MCH 31.8 (26-32) pg MCHC 31.3 L (32-36) g/dl RDW 17.4 H (11.5-14.0) % Plt Count 117 L (150-450) K/mm3 MPV 10.4 H (7.5-11.0) fl Sodium 141 (137-145) mmol/L Potassium 3.6 (3.5-5.1) mmol/L Chloride 96 L (98-107) mmol/L Carbon Dioxide 39 H (22-30) mmol/L Anion Gap 10.3 (5-15) MEQ/L BUN 62 H (9-20) mg/dL Creatinine 1.86 H (0.66-1.25) mg/dL Estimated GFR 37.5 ML/MIN Glucose 387 H (74-106) mg/dL Calcium 8.5 (8.4-10.2) mg/dL Total Bilirubin 0.80 (0.2-1.3) mg/dL AST 18 (17-59) U/L ALT 13 (0-50) U/L Alkaline Phosphatase 79 (38-126) U/L Serum Total Protein 6.7 (6.3-8.2) g/dL Albumin 3.2 L (3.5-5.0) g/dL Radiology Exams: Radiology Procedures Category Date Time Status CHEST 1 VIEW (PORTABLE) Routine Exams 11/17/19 08:32 Completed Multi-Disciplinary Progress Notes: Multi-Disciplinary Progress Notes 11/18/19 08:02 Respiratory Note by Lyndsey Carr 0800 TAKEN OFF BIPAP PLACED ON HIFLOW 40L 100% . PT WANTED TO TRY AND EAT. STAYED OFF 0800 TO 0825. STAYED IN ROOM WITH PT UP TO ENTIRE TIME WHILE ON HIFLOW, SPO2 DROPPED TO 67% AT ONE TIME BUT STAYED AROUND 75-77. UP TO 85% POST 4MIN. AT BEDSIDE Initialized on 11/18/19 08:02 - END OF NOTE Assessment/Plan (1) Acute respiratory distress syndrome in adult Current Visit: Yes Status: Acute Assessment & Plan: Last Vital Signs Temp 97.7 F 11/19/19 04:00 Pulse 104 H 11/19/19 04:00 Resp 38 H 11/19/19 04:00 BP 139/67 11/19/19 04:00 Pulse Ox 92 L 11/19/19 04:00 Allergies Sulfa (Sulfonamide Antibiotics) Allergy (Verified 11/29/18 15:32) Active Medications Albuterol/Ipratropium (Duoneb 0.5-3 Mg/3 Ml Neb) 3 ml IH Q4H PRN PRN Stop: 12/14/19 07:58 Last Admin: 11/15/19 23:31 Dose: 3 ml Albuterol/Ipratropium (Duoneb 0.5-3 Mg/3 Ml Neb) 3 ml IH QIDRT [facility] Stop: 12/16/19 10:59 Last Admin: 11/18/19 19:40 Dose: 3 ml Allopurinol (Zyloprim 300 Mg) 300 mg PO DAILY [facility] Stop: 12/14/19 09:59 Last Admin: 11/18/19 09:21 Dose: 300 mg Alprazolam (Xanax 0.25 Mg) 0.25 mg PO QID [facility] Stop: 12/18/19 16:59 Last Admin: 11/18/19 23:13 Dose: 0.25 mg Ascorbic Acid (Vitamin C 500 Mg) 1,000 mg PO BID [facility] Stop: 12/14/19 09:59 Last Admin: 11/18/19 23:28 Dose: Not Given Aspirin (Ecotrin 81 Mg) 81 mg PO HS [facility] Stop: 12/13/19 21:59 Last Admin: 11/18/19 23:14 Dose: 81 mg Benzonatate (Tessalon Perles 100 Mg) 100 mg PO UD PRN PRN Reason: COUGH Stop: 12/14/19 07:51 Budesonide (Pulmicort 0.5 Mg/2 Ml Respules) 0.5 mg IH BIDRT [facility] Stop: 12/16/19 18:59 Last Admin: 11/18/19 19:38 Dose: 0.5 mg Bumetanide (Bumex 1 Mg) 1 mg IV Q12HT [facility] Stop: 12/15/19 09:59 Last Admin: 11/18/19 22:31 Dose: 1 mg Diltiazem HCl (Cardizem 30 Mg) 30 mg PO Q6H [facility] Stop: 12/15/19 09:59 Last Admin: 11/18/19 23:13 Dose: 30 mg Dronedarone (Multaq 400 Mg) 200 mg PO BID [facility] Stop: 12/13/19 21:59 Last Admin: 11/18/19 23:12 Dose: 200 mg Duloxetine HCl (Cymbalta 30 Mg Capsule) 30 mg PO HS [facility] Stop: 12/13/19 21:59 Last Admin: 11/18/19 23:13 Dose: 30 mg Ergocalciferol (Vitamin D2) 50,000 unit PO Mo [facility] Stop: 12/20/19 07:58 Ferrous Sulfate (Feosol 325 Mg) 325 mg PO TID [facility] Stop: 12/13/19 21:59 Last Admin: 11/18/19 23:14 Dose: 325 mg Folic Acid (Folate 1 Mg) 1 mg PO DAILY [facility] Stop: 12/14/19 09:59 Last Admin: 11/18/19 09:20 Dose: 1 mg Furosemide (Lasix 20 Mg/2 Ml) 20 mg IV BETWEEN UNITS PRN PRN Reason: between units of PRBC Stop: 12/17/19 12:33 Last Admin: 11/17/19 17:51 Dose: 20 mg Gabapentin (Neurontin 300 Mg) 600 mg PO HS [facility] Stop: 12/13/19 21:59 Last Admin: 11/18/19 23:12 Dose: 600 mg Gabapentin (Neurontin 300 Mg) 300 mg PO DAILY [facility] Stop: 12/14/19 09:59 Last Admin: 11/18/19 09:21 Dose: 300 mg Glimepiride (Amaryl 4 Mg) 8 mg PO DAILY [facility] Stop: 12/14/19 09:59 Last Admin: 11/18/19 09:20 Dose: 8 mg Glucagon (Glucagen 1 Mg) 1 mg IM PRN PRN Stop: 12/14/19 07:59 Heparin Sodium (Beef Lung) (Heparin Lock Flush 100 Units/Ml 5ml Syringe) 500 units PICC PRN PRN PRN Reason: IV Triple Lumen/right EJ Stop: 12/14/19 05:50 Last Admin: 11/18/19 22:34 Dose: 500 units Azithromycin (Zithromax 500 Mg/ 250 Ml Nacl Premix) 500 mg in 250 mls @ 250 mls /hr IV Q24H10 [facility] Stop: 12/14/19 11:59 Last Admin: 11/18/19 10:14 Dose: 250 mls/hr Ceftriaxone Sodium/Dextrose (Rocephin 1 Gm-D5w 50 Ml Bag) 1 g in 50 mls @ 100 mls/hr IV Q24H10 [facility] Stop: 12/14/19 10:59 Last Admin: 11/18/19 09:19 Dose: 100 mls/hr Sodium Chloride (Sodium Chloride 0.9% 500 Ml) 500 mls @ 50 mls/hr IV .Q10H [facility] Stop: 12/17/19 10:59 Last Admin: 11/17/19 17:52 Dose: 50 mls/hr Insulin Aspart (Novolog Insulin) 0 unit SQ UD PRN PRN Reason: HYPERGLYCEMIA Stop: 12/15/19 09:35 Last Admin: 11/18/19 22:48 Dose: 6 unit Insulin Glargine (Lantus Insulin) 10 unit SQ AMINSULIN [facility] Stop: 12/16/19 07:59 Last Admin: 11/18/19 08:04 Dose: 10 unit Methylprednisolone Sodium Succinate (Solu-Medrol 125 Mg) 80 mg IV Q8HT [facility] Stop: 12/14/19 13:59 Last Admin: 11/18/19 22:29 Dose: 80 mg Miscellaneous Information (Medication Intervention) 0 each MC .RN TO CHECK WITH PT [facility] Stop: 12/14/19 08:14 Montelukast Sodium (Singulair 10 Mg) 10 mg PO HS [facility] Stop: 12/13/19 21:59 Last Admin: 11/18/19 23:28 Dose: Not Given Ondansetron HCl (Zofran Odt 4 Mg) 4 mg PO Q6H PRN PRN PRN Reason: VOMITING Stop: 12/14/19 07:51 Pantoprazole Sodium (Protonix 40mg Tablet) 40 mg PO LUNCH [facility] Stop: 12/14/19 11:59 Last Admin: 11/18/19 12:30 Dose: 40 mg Pioglitazone HCl (Actos 30 Mg) 30 mg PO LUNCH [facility] Stop: 12/14/19 11:59 Last Admin: 11/18/19 12:30 Dose: 30 mg Sodium Chloride (Sodium Chloride 0.9% 10 Ml Flush Syringe) 10 ml IV PRN PRN PRN Reason: IV triple lumen/Right EJ Stop: 12/14/19 05:51 Last Admin: 11/18/19 14:44 Dose: 10 ml Tamsulosin HCl (Flomax 0.4 Mg) 0.4 mg PO DAILY [facility] Stop: 12/14/19 09:59 Last Admin: 11/18/19 09:20 Dose: 0.4 mg Intake & Output 11/18/19 11/19/19 11:59 11:59 Intake Total 1043 400 Output Total 900 1350 Balance 143 -950 Weight 128 kg Orders 11/18/19 14:00 Methylprednis Sod Succ 125 mg* [solu-MEDROL 125 MG] 80 mg IV Q8HT 11/18/19 17:00 Alprazolam 0.25 mg [xanAX 0.25 MG] 0.25 mg PO QID 11/20/19 07:59 Ergocalciferol (Vitamin D2) [Vitamin D2] 50,000 unit PO Mo Lab Tests 11/18/19 11/18/19 05:15 05:15 WBC 7.9 RBC 3.30 L Hgb 10.5 L D Hct 33.6 L MCV 101.8 H MCH 31.8 MCHC 31.3 L RDW 17.4 H Plt Count 117 L MPV 10.4 H Sodium 141 Potassium 3.6 Chloride 96 L Carbon Dioxide 39 H Anion Gap 10.3 BUN 62 H Creatinine 1.86 H Estimated GFR 37.5 Glucose 387 H Calcium 8.5 Total Bilirubin 0.80 AST 18 ALT 13 Alkaline Phosphatase 79 Serum Total Protein 6.7 Albumin 3.2 L Microbiology 11/13/19 17:45 Blood Blood Culture Gram Stain - Final Not Reportable 11/13/19 17:45 Blood Blood Culture - Final NO GROWTH Code(s): J80 - ACUTE RESPIRATORY DISTRESS SYNDROME (2) Pneumonia Current Visit: Yes Status: Acute Qualifiers: Pneumonia type: due to unspecified organism Laterality: bilateral Lung location: unspecified part of lung Qualified Code(s): J18.9 - Pneumonia, unspecified organism Code(s): J18.9 - PNEUMONIA, UNSPECIFIED ORGANISM (3) Type 2 diabetes mellitus Current Visit: Yes Status: Acute Qualifiers: Diabetes mellitus ad terminal makeup operator insulin use: with detention use Diabetes mellitus complication status: with circulatory complication Diabetes mellitus complication detail: with other circulatory complications Qualified Code(s): E11.59 - Type 2 diabetes mellitus with other circulatory complications; Z79.4 - long term care social worker (current) use of insulin (4) Chronic obstructive pulmonary disease Current Visit: Yes Status: Acute Qualifiers: COPD type: COPD with acute lower respiratory infection Qualified Code(s): J44.0 - Chronic obstructive pulmonary disease with (acute) lower respiratory infection (5) Interstitial lung disease Current Visit: Yes Status: Chronic Code(s): J84.9 - INTERSTITIAL PULMONARY DISEASE, UNSPECIFIED
[2019-11-19] MEDS: Cardizem 30 MG PO SCH ×4 (06:05→21:23)
[2019-11-19] MEDS: solu-MEDROL 125 MG IV SCH ×3 (06:07→21:59)
[2019-11-19] MEDS: Sodium Chloride 0.9% 10 ML FLUSH Syringe IV PRN ×3 (06:08→17:05)
[2019-11-19] MEDS: PULMICORT 0.5 MG/2 ML RESPULES IH SCH ×2 (07:44→19:47)
[2019-11-19] MEDS: DUONEB 0.5-3 MG/3 ml Neb IH SCH ×4 (07:44→19:47)
[2019-11-19] MEDS ORDERED: Norco 10/325 MG Tablet PO PRN (07:46)
[2019-11-19] MEDS: Lantus Insulin SQ SCH (08:25)
[2019-11-19] MEDS: NovoLOG Insulin SQ PRN ×2 (08:25→12:12)
[2019-11-19] MEDS: BUMEX 1 MG IV SCH ×2 (10:05→21:31)
[2019-11-19] MEDS: AMARYL 4 MG PO SCH (10:05)
[2019-11-19] MEDS: FOLATE 1 MG PO SCH (10:06)
[2019-11-19] MEDS: FEOSOL 325 MG PO SCH ×3 (10:06→21:32)
[2019-11-19] MEDS: Flomax 0.4 MG PO SCH (10:06)
[2019-11-19] MEDS: Multaq 400 MG PO SCH ×2 (10:06→21:32)
[2019-11-19] MEDS: NEURONTIN 300 MG PO SCH ×2 (10:07→21:33)
[2019-11-19] MEDS: ROCEPHIN 1 Gm-D5w 50 ml Bag** 1 G/50 ML IVPB IV SCH (10:07)
[2019-11-19] MEDS: Vitamin C 500 MG PO SCH ×2 (10:07→21:33)
[2019-11-19] MEDS: xanAX 0.25 MG PO SCH ×4 (10:08→21:23)
[2019-11-19] MEDS: ZYLOPRIM 300 MG PO SCH (10:08)
[2019-11-19] MEDS: Zithromax 500 MG/ 250 ML NaCl Premix 500 MG/250 ML IVPB IV SCH (11:21)
[2019-11-19] MEDS: Protonix 40MG Tablet PO SCH (12:11)
[2019-11-19] MEDS: Actos 30 MG PO SCH (12:11)
[2019-11-19 17:03] LABS: VBG BASE EXCESS 12.8 (-2.0-2.0); VBG CARBOXYHEMOGLOBIN 2.7 % T HGB (0.0-6.9); VBG HCO3- 40.9 meq/L (22-28); VBG POTASSIUM 3.3 (3.5-5.1); VBG pH 7.35 (7.32-7.42)
[2019-11-19 17:04] LABS: VBG HEMOGLOBIN 10.4; VBG O2 SATURATION 80.2 (95-100)
[2019-11-19] MEDS: Lasix 40 MG/4 ML IV SCH (17:05)
[2019-11-19] MEDS: ECOTRIN 81 MG PO SCH (21:32)
[2019-11-19] MEDS: Cymbalta 30 MG Capsule PO SCH (21:32)
[2019-11-19] MEDS: Singulair 10 MG PO SCH (21:58)
[2019-11-20] MEDS: Cardizem 30 MG PO SCH ×2 (04:58→10:28)
[2019-11-20] MEDS: solu-MEDROL 125 MG IV SCH (05:05)
[2019-11-20] MEDS: PULMICORT 0.5 MG/2 ML RESPULES IH SCH (05:12)
[2019-11-20 07:01] VITALS: BP 144/72; PULSE 104; O2SAT 93
[2019-11-20] MEDS ORDERED: VITAMIN D2 PO SCH (07:59)
[2019-11-20] MEDS: Sodium Chloride 0.9% 500 ML 500 ML IV SCH (10:07)
[2019-11-20] MEDS: Morphine PCA 1 MG/ML 30 ML IV PRN ×2 (10:25→13:05)
[2019-11-20] MEDS: Lantus Insulin SQ SCH (10:25)
[2019-11-20] MEDS: NovoLOG Insulin SQ PRN (10:26)
[2019-11-20] MEDS: xanAX 0.25 MG PO SCH ×2 (10:28→12:06)
[2019-11-20] MEDS: BUMEX 1 MG IV SCH (10:28)
[2019-11-20] MEDS: Lasix 40 MG/4 ML IV SCH (10:28)
[2019-11-20] MEDS: AMARYL 4 MG PO SCH (10:29)
--- NOTE | 2019-11-20 10:47 | ECHO ---
Transthoracic echocardiographic examination and color Doppler was done on 11/16/2019. INDICATION: Shortness of breath. IMPRESSION: 1) NO REGIONAL WALL MOTION ABNORMALITY. ESTIMATED GLOBAL LEFT VENTRICULAR EJECTION FRACTION OF AROUND 50 TO 60%. 2) MILD TRICUSPID REGURGITATION. RIGHT VENTRICULAR SYSTOLIC PRESSURE OF 47 MM OF MERCURY. 3) AORTIC VALVE SCLEROSIS WITH PEAK TRANSAORTIC GRADIENT OF 25 MM OF MERCURY. 4) MEAN GRADIENT OF 13 MM OF MERCURY. 5) LEFT VENTRICULAR HYPERTROPHY. 6) MILDLY DILATED RIGHT SIDE CHAMBERS. The left ventricle is visualized and demonstrated adequate motion of all the segments. Estimated global left ventricular ejection fraction between 50 and 60%. There is mild left ventricular hypertrophy. The mitral valve is thickened but opens adequately. No significant mitral regurgitation is seen. Left atrium is normal. The aortic valve is sclerotic. The peak gradient across the aortic valve is about 25 mm of Mercury with a mean gradient of 13 mm of Mercury. The right side chambers are mildly dilated. There is mild tricuspid regurgitation. The right ventricular systolic pressure of 44 mm of Mercury.
[2019-11-20] MEDS: FOLATE 1 MG PO SCH (10:59)
[2019-11-20] MEDS: Multaq 400 MG PO SCH (10:59)
[2019-11-20] MEDS: NEURONTIN 300 MG PO SCH (10:59)
[2019-11-20] MEDS: FEOSOL 325 MG PO SCH (10:59)
[2019-11-20] MEDS: Flomax 0.4 MG PO SCH (10:59)
[2019-11-20] MEDS: Zithromax 500 MG/ 250 ML NaCl Premix 500 MG/250 ML IVPB IV SCH (11:00)
[2019-11-20] MEDS: Vitamin C 500 MG PO SCH (11:00)
[2019-11-20] MEDS: ZYLOPRIM 300 MG PO SCH (11:00)
[2019-11-20] MEDS: ROCEPHIN 1 Gm-D5w 50 ml Bag** 1 G/50 ML IVPB IV SCH (11:00)
[2019-11-20] MEDS: Actos 30 MG PO SCH (12:06)
[2019-11-20] MEDS: Protonix 40MG Tablet PO SCH (12:06)
--- NOTE | 2019-11-20 12:26 | PCM.NOTE ---
Date and Time: 11/20/19 1225 Subjective Assessment: Patient wants to be comfort care, He doesnot want to wear BiPap all time - Review of Systems Constitutional: No Fever, No Chills Eyes: No Symptoms Ears, Nose, & Throat: No Symptoms Respiratory: Cough, Orthopnea, Short Of Breath, Wheezing Cardiac: No Chest Pain, No Edema, No Syncope Abdominal/Gastrointestinal: No Abdominal Pain, No Nausea, No Vomiting, No Diarrhea Genitourinary Symptoms: No Dysuria Musculoskeletal: No Back Pain, No Neck Pain Skin: No Rash Neurological: No Dizziness, No Focal Weakness, No Sensory Changes Psychological: No Symptoms Endocrine: No Symptoms Hematologic/Lymphatic: No Symptoms Immunological/Allergic: No Symptoms Objective Exam General Appearance: severe distress, alert, anxiety Neurologic Exam: alert, No motor deficits Skin Exam: normal color, warm, dry Eye Exam: PERRL, EOMI, eyes nml inspection Ears, Nose, Throat Exam: normal ENT inspection, pharynx normal, moist mucous membranes Neck Exam: normal inspection, non-tender, supple, full range of motion Respiratory Exam: diminished breath sounds, accessory muscle use, prolonged expirations, crackles/rales, rhonchi, wheezing, No respiratory distress Cardiovascular Exam: regular rate/rhythm, normal heart sounds Gastrointestinal/Abdomen Exam: soft, No tenderness, No mass Extremity Exam: normal inspection, normal range of motion Back Exam: normal inspection, normal range of motion, No CVA tenderness, No vertebral tenderness Male Genitalia Exam: deferred Rectal Exam: deferred OBJECTIVE DATA Vital Signs: Vital Signs - 24 hr Temp Pulse Resp BP Pulse Ox 11/20/19 07:00 98.3 F 104 H 24 144/72 93 L 11/20/19 05:15 98 H 41 H 92 L 11/20/19 05:00 103 H 27 H 92 L 11/19/19 23:32 98.6 F 113 H 44 H 130/70 92 L 11/19/19 20:28 98.3 F 102 H 40 H 135/64 93 L 11/19/19 19:47 98 H 48 H 93 L 11/19/19 17:01 98.3 F 126 H 30 H 132/64 93 L 11/19/19 14:34 81 36 H 94 L Oxygen-Last 24 hours O2 Percentage 100% O2 Percentage 100% O2 Percentage 100% O2 Percentage 100% O2 Percentage 100% Pain Assessment - Last Documented Pain Intensity 4 Pain Scale Used 0-10 Pain Scale Intake and Output: Intake & Output 11/18/19 11/19/19 11/20/19 11/21/19 11:59 11:59 11:59 11:59 Intake Total 2605 429 0689 Output Total 900 1350 1900 Balance 143 950 -710 Weight 128 kg 128.9 kg Lab Results: Accuchecks Date 11/19/19 Time 21:00 Accucheck Value: 290 Lab Results-Last 24 Hours 11/19/19 Range/Units 16:46 pO2/FiO2 Ratio 100 % VBG pH 7.35 (7.32-7.42) VBG pCO2 at Pat Temp 74 H* (42-55) mm/Hg VBG pO2 at Pat Temp 39 (25-40) mm/Hg VBG HCO3 40.9 H* (22-28) meq/L VBG O2 Sat (Sammie) 80.2 L (95-100) VBG Base Excess 12.8 H (-2.0-2.0) VBG Hemoglobin 10.4 VBG Carboxyhemoglobin 2.7 (0.0-6.9) % T HGB POC Potassium 3.3 L (3.5-5.1) Multi-Disciplinary Progress Notes: Multi-Disciplinary Progress Notes 11/20/19 10:59 Respiratory Note by Diamond Hickey BIPAP REMOVED ONCE MORPHINE UPSETTER WAS STARTED AND PT WAS PLACED ON 15LPM OXYMASK PER DR. DELEON'S ORDER AND PT'S REQUEST. NEBULIZER TREATMENTS ALSO DISCONTINUED AT THIS TIME. FAMILY AT BEDSIDE. Initialized on 11/20/19 10:59 - END OF NOTE Assessment/Plan (1) Acute respiratory distress syndrome in adult Current Visit: Yes Status: Acute Assessment & Plan: poor prognosis, patient wants comfort care. Code(s): J80 - ACUTE RESPIRATORY DISTRESS SYNDROME (2) Pneumonia Current Visit: Yes Status: Acute Qualifiers: Pneumonia type: due to unspecified organism Laterality: bilateral Lung location: unspecified part of lung Qualified Code(s): J18.9 - Pneumonia, unspecified organism Code(s): J18.9 - PNEUMONIA, UNSPECIFIED ORGANISM (3) Type 2 diabetes mellitus Current Visit: Yes Status: Acute Qualifiers: Diabetes mellitus terminal operator insulin use: with terminal operator use Diabetes mellitus complication status: with circulatory complication Diabetes mellitus complication detail: with other circulatory complications Qualified Code(s): E11.59 - Type 2 diabetes mellitus with other circulatory complications; Z79.4 - terminal operator (current) use of insulin (4) Chronic obstructive pulmonary disease Current Visit: Yes Status: Acute Qualifiers: COPD type: COPD with acute lower respiratory infection Qualified Code(s): J44.0 - Chronic obstructive pulmonary disease with (acute) lower respiratory infection (5) Interstitial lung disease Current Visit: Yes Status: Chronic Code(s): J84.9 - INTERSTITIAL PULMONARY DISEASE, UNSPECIFIED
--- NOTE | 2019-11-20 13:29 | PCM.DS ---
Discharge Summary Date of Admission: 11/13/19 19:40 Admitting Physician: CONCEPCIÓN FLORES Primary Care Provider: CONCEPCIÓN FLORES Allergies Allergies Sulfa (Sulfonamide Antibiotics) Allergy (Verified 11/29/18 15:32) Hospital Summary - Hospital Course Hospital Course: Chief Complaint Diagnosis c/o cough and shortness of breath for 2-3 days Allergies Allergy/AdvReac Type Severity Reaction Status Date / Time Sulfa (Sulfonamide Allergy Verified 11/29/18 15:32 Antibiotics) Vital Signs (Last 24 hours) Temp Pulse Resp BP Pulse Ox 11/20/19 07:00 98.3 F 104 H 24 144/72 93 L 11/20/19 05:15 98 H 41 H 92 L 11/20/19 05:00 103 H 27 H 92 L 11/19/19 23:32 98.6 F 113 H 44 H 130/70 92 L 11/19/19 20:28 98.3 F 102 H 40 H 135/64 93 L 11/19/19 19:47 98 H 48 H 93 L 11/19/19 17:01 98.3 F 126 H 30 H 132/64 93 L 11/19/19 14:34 81 36 H 94 L Current Medications Generic Name Dose Route Start Last Admin Trade Name Freq PRN Reason Stop Dose Admin Hydrocodone Bitart/Acetaminophen 1 tab 11/19/19 07:46 11/20/19 07:53 Ashmore 10/325 Mg Tablet PO 11/24/19 07:45 1 tab Q4H PRN PRN Administration PAIN Albuterol/Ipratropium 3 ml 11/14/19 07:59 11/15/19 23:31 Duoneb 0.5-3 Mg/3 Ml Neb IH 12/14/19 07:58 3 ml Q4H PRN PRN Administration Allopurinol 300 mg 11/14/19 10:00 11/20/19 11:00 Zyloprim 300 Mg PO 12/14/19 09:59 Not Given DAILY ROBSON Alprazolam 0.25 mg 11/18/19 17:00 11/20/19 12:06 Xanax 0.25 Mg PO 12/18/19 16:59 Not Given QID ROBSON Ascorbic Acid 1,000 mg 11/14/19 10:00 11/20/19 11:00 Vitamin C 500 Mg PO 12/14/19 09:59 Not Given BID ROBSON Aspirin 81 mg 11/13/19 22:00 11/19/19 21:32 Ecotrin 81 Mg PO 12/13/19 21:59 Not Given HS ROBSON Benzonatate 100 mg 11/14/19 07:52 Tessalon Perles 100 Mg PO 12/14/19 07:51 UD PRN COUGH Bumetanide 1 mg 11/15/19 10:00 11/20/19 10:28 Bumex 1 Mg IV 12/15/19 09:59 1 mg Q12HT ROBSON Administration Diltiazem HCl 30 mg 11/15/19 10:00 11/20/19 10:28 Cardizem 30 Mg PO 12/15/19 09:59 30 mg Q6H ROBSON Administration Dronedarone 200 mg 11/13/19 22:00 11/20/19 10:59 Multaq 400 Mg PO 12/13/19 21:59 Not Given BID ROBSON Duloxetine HCl 30 mg 11/13/19 22:00 11/19/19 21:32 Cymbalta 30 Mg Capsule PO 12/13/19 21:59 Not Given HS [facility] Ergocalciferol 50,000 unit 11/20/19 07:59 11/20/19 10:58 Vitamin D2 PO 12/20/19 07:58 Not Given Mo [facility] Ferrous Sulfate 325 mg 11/13/19 22:00 11/20/19 10:59 Feosol 325 Mg PO 12/13/19 21:59 Not Given TID [facility] Folic Acid 1 mg 11/14/19 10:00 11/20/19 10:59 Folate 1 Mg PO 12/14/19 09:59 Not Given DAILY ROBSON Furosemide 40 mg 11/19/19 17:00 11/20/19 10:28 Lasix 40 Mg/4 Ml IV 12/19/19 16:59 40 mg BID DIURETIC ROBSON Administration Gabapentin 600 mg 11/13/19 22:00 11/19/19 21:33 Neurontin 300 Mg PO 12/13/19 21:59 Not Given HS [facility] Gabapentin 300 mg 11/14/19 10:00 11/20/19 10:59 Neurontin 300 Mg PO 12/14/19 09:59 Not Given DAILY ROBSON Glimepiride 8 mg 11/14/19 10:00 11/20/19 10:29 Amaryl 4 Mg PO 12/14/19 09:59 8 mg DAILY ROBSON Administration Glucagon 1 mg 11/14/19 08:00 Glucagen 1 Mg IM 12/14/19 07:59 PRN PRN Heparin Sodium (Beef Lung) 500 units 11/14/19 05:51 11/19/19 17:05 Heparin Lock Flush 100 Units/Ml 5ml Syringe PICC 12/14/19 05:50 500 units PRN PRN Administration IV Triple Lumen/right EJ Azithromycin 500 mg in 250 mls @ 250 mls/hr 11/14/19 12:00 11/20/19 11:00 Zithromax 500 Mg/ 250 Ml Nacl Premix IV 12/14/19 11:59 Not Given Q24H10 RO[facility] Ceftriaxone Sodium/Dextrose 1 g in 50 mls @ 100 mls/hr 11/14/19 11:00 11:00 Rocephin 1 Gm-D5w 50 Ml Bag IV 12/14/19 10:59 Not Given Q24H10 RO[facility]ON Sodium Chloride 500 mls @ 50 mls/hr 11/17/19 11:00 11/20/19 10:07 Sodium Chloride 0.9% 500 Ml IV 12/17/19 10:59 50 mls/hr .Q10H ROBSON Administration Insulin Aspart 0 unit 11/15/19 09:36 11/20/19 10:26 Novolog Insulin SQ 12/15/19 09:35 8 unit UD PRN Administration HYPERGLYCEMIA Insulin Glargine 10 unit 11/16/19 08:00 11/20/19 10:25 Lantus Insulin SQ 12/16/19 07:59 10 unit AMINSULIN ROBSON Administration Methylprednisolone Sodium Succinate 80 mg 11/18/19 14:00 11/20/19 05:05 Solu-Medrol 125 Mg IV 12/14/19 13:59 80 mg Q8HT ROBSON Administration Miscellaneous Information 0 each 11/14/19 08:15 Medication Intervention MC 12/14/19 08:14 .RN TO CHECK WITH PT RO[facility]ON Montelukast Sodium 10 mg 11/13/19 22:00 11/19/19 21:58 Singulair 10 Mg PO 12/13/19 21:59 Not Given HS RO[facility] Morphine Sulfate 30 mg 11/20/19 09:10 11/20/19 13:05 Morphine Staff Anesthesiologist 1 Mg/Ml 30 Ml IV 11/25/19 09:09 30 mg PRN PRN Administration PAIN Ondansetron HCl 4 mg 11/14/19 07:52 Zofran Odt 4 Mg PO 12/14/19 07:51 Q6H PRN PRN VOMITING Pantoprazole Sodium 40 mg 11/14/19 12:00 11/20/19 12:06 Protonix 40mg Tablet PO 12/14/19 11:59 Not Given LUNCH RO[facility]ON Pioglitazone HCl 30 mg 11/14/19 12:00 11/20/19 12:06 Actos 30 Mg PO 12/14/19 11:59 Not Given LUNCH RO[place] Sodium Chloride 10 ml 11/14/19 05:52 11/19/19 17:05 Sodium Chloride 0.9% 10 Ml Flush Syringe IV 12/14/19 05:51 10 ml PRN PRN Administration IV triple lumen/Right EJ Tamsulosin HCl 0.4 mg 11/14/19 10:00 11/20/19 10:59 Flomax 0.4 Mg PO 12/14/19 09:59 Not Given DAILY ROBSON Discontinued Medications Generic Name Dose Route Start Last Admin Trade Name Freq PRN Reason Stop Dose Admin Hydrocodone Bitart/Acetaminophen 1 tab 11/13/19 23:37 Ashmore 10/325 Mg Tablet PO 11/18/19 23:36 Q4H PRN PRN PAIN Albuterol/Ipratropium 3 ml 11/13/19 12:24 11/13/19 12:33 Duoneb 0.5-3 Mg/3 Ml Neb IH 11/13/19 12:25 3 ml STAT ONE Administration Albuterol/Ipratropium Confirm 11/13/19 12:31 Duoneb 0.5-3 Mg/3 Ml Neb Administered 11/13/19 12:32 Dose 3 ml IH .STK-MED ONE Albuterol/Ipratropium 3 ml 11/16/19 11:00 11/19/19 19:47 Duoneb 0.5-3 Mg/3 Ml Neb IH 12/16/19 10:59 3 ml QIDRT ROBSON Administration Apixaban 2.5 mg 11/13/19 22:00 11/14/19 00:25 Eliquis 2.5 Mg Tablet PO 11/13/19 22:01 2.5 mg BID ONE Administration Apixaban 2.5 mg 11/14/19 10:00 11/17/19 14:34 Eliquis 2.5 Mg Tablet PO 12/14/19 09:59 Not Given BID RO[place]ON Ascorbic Acid 1,000 mg 11/13/19 22:00 11/14/19 00:26 Vitamin C 500 Mg PO 11/13/19 22:01 1,000 mg BID ONE Administration Azithromycin 500 mg 11/13/19 13:38 11/13/19 14:18 Zithromax 250 Mg Tablet PO 11/13/19 13:39 500 mg STAT ONE Administration Azithromycin Confirm 11/13/19 14:06 Zithromax 250 Mg Tablet Administered 11/13/19 14:07 Dose 500 mg .ROUTE .STK-MED ONE Budesonide 0.5 mg 11/16/19 19:00 11/20/19 05:12 Pulmicort 0.5 Mg/2 Ml Respules IH 12/16/19 18:59 0.5 mg BIDRT ROBSON Administration Bumetanide 1 mg 11/14/19 22:00 11/14/19 22:25 Bumex 1 Mg PO 11/14/19 22:01 1 mg BID DIURETIC ONE Administration Bumetanide Confirm 11/14/19 00:16 Bumex 1 Mg Administered 11/14/19 00:17 Dose 1 mg .ROUTE .STK-MED ONE Ceftriaxone Sodium 1,000 mg 11/13/19 13:38 11/13/19 14:18 Rocephin 1000 Mg Inj IM 11/13/19 13:39 1,000 mg STAT ONE Administration Ceftriaxone Sodium Confirm 11/13/19 14:06 Rocephin 1000 Mg Inj Administered 11/13/19 14:07 Dose 1,000 mg .ROUTE .STK-MED ONE Furosemide 20 mg 11/14/19 12:27 11/13/19 18:12 Lasix 20 Mg/2 Ml IV 11/14/19 12:28 20 mg STAT ONE Administration Furosemide Confirm 11/13/19 12:32 Lasix 40 Mg/4 Ml Administered 11/13/19 12:33 Dose 40 mg .ROUTE .STK-MED ONE Furosemide 20 mg 11/17/19 12:34 11/17/19 17:51 Lasix 20 Mg/2 Ml IV 12/17/19 12:33 20 mg BETWEEN UNITS PRN Administration between units of PRBC Heparin Sodium (Beef Lung) Confirm 11/13/19 21:31 Heparin Lock Flush 100 Units/Ml 5ml Syringe Administered 11/13/19 21:32 Dose 500 units .ROUTE .STK-MED ONE Ceftriaxone Sodium/Dextrose 1 g in 50 mls @ 100 mls/hr 11/13/19 12:24 18:02 Rocephin 1 Gm-D5w 50 Ml Bag IV 11/13/19 12:53 Not Given STAT STA Azithromycin 500 mg in 250 mls @ 250 mls/hr 11/13/19 12:24 11/13/19 18:04 Zithromax 500 Mg/ 250 Ml Nacl Premix IV 11/13/19 13:23 Not Given STAT STA Sodium Chloride 1,000 mls @ 999 mls/hr 11/13/19 12:32 11/13/19 19:07 Sodium Chloride 0.9% 1000 Ml IV 11/13/19 13:32 Infused .Q1H1M STA Infusion Ceftriaxone Sodium/Dextrose Confirm 11/13/19 12:32 Rocephin 1 Gm-D5w 50 Ml Bag Administered 11/13/19 12:33 Dose 1 g in 50 mls @ ud IV .STK-MED ONE Sodium Chloride Confirm 11/13/19 12:39 Sodium Chloride 0.9% 1000 Ml Administered 11/13/19 12:40 Dose 1,000 mls @ ud .ROUTE .STK-MED ONE Insulin Glargine 10 unit 11/15/19 10:00 11/15/19 10:09 Lantus Insulin SQ 11/15/19 10:01 10 unit NOW ONE Administration Lidocaine HCl Confirm 11/13/19 14:06 Xylocaine 1% Hcl 20 Ml Mdv Administered 11/13/19 14:07 Dose 3 ml .ROUTE .STK-MED ONE Methylprednisolone Sodium Succinate 125 mg 11/13/19 12:25 11/13/19 18:03 Solu-Medrol 125 Mg IV 11/13/19 12:26 125 mg STAT ONE Administration Methylprednisolone Sodium Succinate Confirm 11/13/19 12:32 Solu-Medrol 125 Mg Administered 11/13/19 12:33 Dose 125 mg .ROUTE .STK-MED ONE Methylprednisolone Sodium Succinate 125 mg 11/14/19 14:00 11/18/19 05:27 Solu-Medrol 125 Mg IV 12/14/19 13:59 125 mg Q8HT RO[facility] Administration Non-Formulary Medication 1 each 11/14/19 10:45 Pharmacy Dosing Request 12/14/19 10:44 RO[facility] Intake & Output (Last 24 hours) 11/18/19 11/19/19 11/20/19 11/21/19 11:59 11:59 11:59 11:59 Intake Total 4947 499 1309 Output Total 900 1350 1900 Balance 143 -950 -710 Weight 128 kg 128.9 kg Laboratory Results (Last 24 hours) 11/19/19 16:46 pO2/FiO2 Ratio 100 VBG pH 7.35 VBG pCO2 at Pat Temp 74 H* VBG pO2 at Pat Temp 39 VBG HCO3 40.9 H* VBG O2 Sat (Sammie) 80.2 L VBG Base Excess 12.8 H VBG Hemoglobin 10.4 VBG Carboxyhemoglobin 2.7 POC Potassium 3.3 L Orders (Last 24 hours) Category Date Time Status ACCUCHECK [Accucheck] ACHS Care 11/19/19 17:39 Active Discharge Planning,Consult Routine Discharge 11/20/19 Active VBG [VENOUS BLOOD GAS] Routine Lab 11/19/19 16:46 Completed Ergocalciferol (Vitamin D2) [Vitamin D2] Med 11/20/19 07:59 Active 50,000 unit PO Mo Furosemide 40 mg/4 ml [Lasix 40 MG/4 ML] Med 11/19/19 17:00 Active 40 mg IV BID DIURETIC Morphine Sulfate 30 mg/30 ml [Morphine GROOVING MACHINE OPERATOR 1 MG/ML 30 Med 11/20/19 09:10 Active ML] 30 mg IV PRN PRN Patient Care Notes (Last 24 hours) 11/20/19 12:21 Nursing Note by Jessy Espinoza AT 1200, AUSCULTATED FOR PATIENT HEARTBEAT. NO HEARTBEAT PRESENT. SECOND VERIFICATION PER Ramon DUMONT RN. Initialized on 11/20/19 12:21 - END OF NOTE 11/20/19 12:06 Nursing Note by Rola Graham Family request all meds to not be given. Patient got choked on just taking a few small pills. Initialized on 11/20/19 12:06 - END OF NOTE 11/20/19 11:55 CLEANER WALL Note by Marian Spain Family refuses accu check and vitals at this time reported to GISSELLE Jiménez Initialized on 11/20/19 11:55 - END OF NOTE 11/20/19 10:59 Respiratory Note by Diamond Hickey BIPAP REMOVED ONCE MORPHINE GROOVING MACHINE OPERATOR WAS STARTED AND PT WAS PLACED ON 15LPM OXYMASK PER DR. FLORES'S ORDER AND PT'S REQUEST. NEBULIZER TREATMENTS ALSO DISCONTINUED AT THIS TIME. FAMILY AT BEDSIDE. Initialized on 11/20/19 10:59 - END OF NOTE 11/20/19 09:49 Nursing Note by Avril Dumont spoke with dr flores on phone let him know pts wishes in regard to not wanting on bipap and wanting to start hospice orders MD states to place pt on Morphine bridge tender and to let him choose what O2 he wishes to be on. Pt has been asking to be "allowed to just pass" states he does not wish to have bipap on Initialized on 11/20/19 09:49 - END OF NOTE 11/19/19 16:45 (created 11/19/19 18:01) Nursing Note by Zhane Benavides Pt.had been alert and visiting w/ family around lunch time but is lethargic this afternoon; difficult to arouse. Lungs are course throughout and upper and lower extremities are more edematous; no mottling noted. RT notified and will evaluate. Dr. Flores notified and orders received. Family at bedside. Insulin held per family request since pt is not eating. Family made aware of new orders. Initialized on 11/19/19 18:01 - END OF NOTE Patient at 12.noon - Vitals & Intake/Output Vital Signs: Vital Signs Temperature 98.3 F 11/20/19 07:00 Pulse Rate 104 H 11/20/19 07:00 Respiratory Rate 24 11/20/19 07:00 Blood Pressure 144/72 11/20/19 07:00 O2 Sat by Pulse Oximetry 93 L 11/20/19 07:00 Oxygen-Last Documented O2 Percentage 100% Intake & Output: Intake & Output 11/18/19 11/19/19 11/20/19 11/21/19 11:59 11:59 11:59 11:59 Intake Total 8749 872 9604 Output Total 900 1350 1900 Balance 666 -592 -229 Weight 128 kg 128.9 kg - Lab Result Diagrams: 11/18/19 05:15 11/18/19 05:15 Lab Results-Last 24 Hrs: Accuchecks Date 11/20/19 Date 11/19/19 Time 07:30 Time 21:00 Accucheck Value: 365 Accucheck Value: 290 Lab Results-Last 24 Hours 11/19/19 Range/Units 16:46 pO2/FiO2 Ratio 100 % VBG pH 7.35 (7.32-7.42) VBG pCO2 at Pat Temp 74 H* (42-55) mm/Hg VBG pO2 at Pat Temp 39 (25-40) mm/Hg VBG HCO3 40.9 H* (22-28) meq/L VBG O2 Sat (Sammie) 80.2 L (95-100) VBG Base Excess 12.8 H (-2.0-2.0) VBG Hemoglobin 10.4 VBG Carboxyhemoglobin 2.7 (0.0-6.9) % T HGB POC Potassium 3.3 L (3.5-5.1) Micro Results-Entire Visit: Microbiology 11/13/19 17:45 Blood Culture Gram Stain - Final Blood Not Reportable Blood Culture - Final NO GROWTH 11/13/19 19:29 Urine Culture - Final Catherized NO GROWTH Accuchecks Date 11/20/19 Date 11/19/19 Time 07:30 Time 21:00 Accucheck Value: 365 Accucheck Value: 290 - Procedures and Test Procedures and Tests throughout Hospitalization: Therapy Orders & Screens 11/15/19 09:49 EKG ROUTINE Comment: Diagnosis: c/o cough and shortness of breath for 2-3 days 11/16/19 11:05 Oxygen High Flow per RT 50% Comment: Diagnosis: c/o cough and shortness of breath for 2-3 days 11/16/19 21:00 BiPap/CPAP ROUTINE Comment: [id number] PER HOME SETTINGS Diagnosis: c/o cough and shortness of breath for 2-3 days 11/13/19 12:36 Respiratory Therapy Assessment DAILY Comment: 11/13/19 20:00 Oxygen Non-rebreather 15% Comment: Discharge Exam Comments: 11/20/19 13:27 manager of engineering respiration no pulse Final Diagnosis/Problem List - Final Discharge Diagnosis/Problem (1) Acute respiratory distress syndrome in adult Current Visit: Yes Status: Resolved Code(s): J80 - ACUTE RESPIRATORY DISTRESS SYNDROME (2) Pneumonia Current Visit: Yes Status: Resolved Code(s): J18.9 - PNEUMONIA, UNSPECIFIED ORGANISM (3) Type 2 diabetes mellitus Current Visit: Yes Status: Resolved (4) Chronic obstructive pulmonary disease Current Visit: Yes Status: Acute (5) Interstitial lung disease Current Visit: Yes Status: Chronic Code(s): J84.9 - INTERSTITIAL PULMONARY DISEASE, UNSPECIFIED - Discharge Discharge Date: 11/20/19 Disposition: Prescriptions: No Action Duloxetine HCl 30 mg [Cymbalta 30 MG Capsule] 30 mg PO HS Glimepiride 8 mg PO DAILY Allopurinol 300 mg [Zyloprim 300 mg] 300 mg PO DAILY Gabapentin 300 mg PO DAILY Aspirin 81 mg PO HS Dronedarone Hydrochloride 400* [Multaq 400 MG] 200 mg PO BID Ipratropium/Albuterol Sulfate [Combivent Inhaler] 15 gm IH Q4HPRN PRN PRN Reason: Shortness Of Breath/Wheezing Apixaban [Eliquis 2.5 mg Tablet] 2.5 mg PO BID Bumetanide 1 mg [Bumex 1 mg] 1 mg PO BID Pioglitazone 30 mg [Actos 30 MG] 30 mg PO LUNCH Ascorbic Acid [Vitamin C] 1,000 mg PO BID Ergocalciferol (Vitamin D2) [Vitamin D] 50,000 unit PO WEEKLY Tamsulosin HCl 0.4 mg [Flomax 0.4 MG] 0.4 mg PO DAILY Montelukast Sodium 10 mg [Singulair 10 MG] 10 mg PO HS Gabapentin 600 mg PO HS PANTOPRAZOLE 40 mg Tablet [Protonix 40MG Tablet] 40 mg PO LUNCH Folic Acid 800 mg PO DAILY Ferrous Fumarate 324 mg PO TID #90 tablet Glucagon 1 mg [GlucaGen 1 MG] 1 mg IM STAT Benzonatate [Tessalon Perle] 100 mg PO UD PRN PRN Reason: Cough Hydrocodone/APAP 10/325 mg [Ashmore 10/325 MG Tablet] 1 tab PO Q4H PRN PRN PRN Reason: Pain Calcifediol [Rayaldee] 1 cap PO DAILY Ondansetron ODT 4 MG [Zofran Odt 4 mg] 4 mg PO Q6H PRN PRN #10 tab.rapdis PRN Reason: Vomiting Follow up with: CONCEPCIÓN FLORES MD [Primary Care Provider] - 1 Week
== END 2019-11-20 12:00 | disposition expired | DRG 204 ==
LOC: ED 12:13 → ICU 19:40 → MED SURG 11-18 13:53
PROVIDERS: ADMIT General Practice; ATTEND General Practice
DX: J80 Acute respiratory distress syndrome (principal); J84.9 Interstitial pulmonary disease, unspecified; J44.1 Chronic obstructive pulmonary disease with (acute) exacerbation; E11.65 Type 2 diabetes mellitus with hyperglycemia; I48.91 Unspecified atrial fibrillation; I11.0 Hypertensive heart disease with heart failure; Z79.899 Other long term (current) drug therapy; Z79.01 Long term (current) use of anticoagulants; Z99.81 Dependence on supplemental oxygen
CPT/HCPCS: 36415; 36430; 36571; 36600; 51702; 71045; 76942; 80048; 80053; 81001; 82270; 82375; 82803; 82805; 82962; 83036; 83605; 83880; 84484; 85025; 85027; 86850; 86900; 86901; 86922; 87040; 87086; 87631; 93005; 93041; 93306; 94002; 94003; 94640; 94762; 96360; 96372; 96374; 96375; 99285; 99291; J0456; J0696; J1642; J1940; J2270; J2930; P9016; A9270-GY